=== PATIENT | male | born 1960 | race African-American/Black ===

== ENCOUNTER 2018-05-18 10:51 | Emergency (ER) | payer SELFPAY ==
[~2018-05-18] VITALS: Ht 190.5 cm; Wt 80.7 kg
[~2018-05-18 10:51] MED LIST: ASPI-612 PO; ATOR20TA58 PO; CLON0.1T12 PO; FAMO20TA5 PO; NITR0.4T SL; ONDA4TAB10 SL; POLY119P4 PO; Pantoprazole PO
[2018-05-18 12:23] LABS: INFLUENZA A PATIENT NEGATIVE (NEGATIVE); INFLUENZA B PATIENT NEGATIVE (NEGATIVE)
[2018-05-18] MEDS ORDERED: IV NORMAL SALINE 1000ML BAG 1,000 ML IV ONE (12:45)
--- NOTE | 2018-05-18 12:49 | PHYS DOC ---
Past Medical History Past Medical History: GERD, High Cholesterol, Hypertension, Unknown Additional Past Medical Histor: PT IS A POOR HISTORIAN, [place] 2006-NO STENTS PLACED Past Surgical History: Appendectomy Alcohol Use: None Drug Use: None Adult General Chief Complaint Chief Complaint: FLU SYMPTOM HPI HPI Patient is a 58 year old AA male who presents to the emergency Department via EMS today with complaints of diffuse upper abdominal pain with nausea and vomiting for the last 4 days. Patient states he has not been able to keep anything down. He reports history of having some chronic abdominal pain ever since his appendix ruptured and he had to have major abdominal surgery for that. Patient states he usually takes tramadol, however he is out of his tramadol currently. Patient also complains of a tactile fever, fatigue, and body aches. He denies any chest pain, shortness of breath, cough, congestion, sore throat, or ear pain. Currently reports his pain is 10 out of 10 on pain scale, he denies any alleviating or exacerbating factors. Review of Systems Review of Systems Constitutional: Denies fever or chills [] Eyes: Denies changes HENT: Denies nasal congestion or sore throat [] Respiratory: Denies cough or shortness of breath [] Cardiovascular: No additional information not addressed in HPI [] GI: See HPI : Denies dysuria or hematuria [] Musculoskeletal: Denies back pain Integument: Denies rash or skin lesions [] Neurologic: Denies headache Complete systems were reviewed and found to be within normal limits, except as documented in this note. Current Medications Current Medications Current Medications Medications (Trade) Dose Ordered Sig/Marylin Start Time Stop Time Status Last Admin Dose Admin Info (CONTRAST GIVEN -- Rx MONITORING) 1 each PRN DAILY PRN 05/18/18 17:15 05/18/18 18:28 DC Iohexol (Omnipaque 300 Mg/ml) 75 ml 1X ONCE 05/18/18 17:15 05/18/18 17:16 DC 05/18/18 17:21 75 ML Multi-Ingredient Mouthwash/Gargle (Gi Cocktail) 20 ml 1X ONCE 05/18/18 16:15 05/18/18 16:17 DC 05/18/18 16:23 20 ML Ondansetron HCl (Zofran) 4 mg 1X ONCE 05/18/18 16:45 05/18/18 16:46 DC 05/18/18 16:57 4 MG Sodium Chloride 1,000 ml @ 1,000 mls/hr 1X ONCE 05/18/18 12:45 05/18/18 13:44 DC 05/18/18 12:45 1,000 MLS/HR Allergies Allergies Allergies Coded Allergies Type Severity Reaction Last Updated Verified Penicillins Allergy Intermediate 01/28/18 Yes acetaminophen Allergy Intermediate 01/28/18 Yes Physical Exam Physical Exam Constitutional: Well developed, well nourished, no acute distress, non-toxic appearance. [] HENT: Normocephalic, atraumatic, bilateral external ears normal, oropharynx moist, no oral exudates, nose normal. [] Eyes: conjunctiva normal, no discharge. [] Neck: Normal range of motion, no stridor. [] Cardiovascular:Heart rate regular rhythm, no murmur [] Lungs & Thorax: Bilateral breath sounds clear to auscultation [] Abdomen: Bowel sounds normal, soft, diffuse TTP, no rebound tenderness or guarding, no masses, no pulsatile masses. [] Skin: Warm, dry, no erythema, no rash. [] Extremities: No cyanosis, ROM intact, no edema. [] Neurologic: Alert and oriented X 3, no focal deficits noted. [] Psychologic: Affect normal, judgement normal, mood normal. [] Current Patient Data Vital Signs Vital Signs Date Time Temp Pulse Resp B/P (MAP) Pulse Ox O2 Delivery O2 Flow Rate FiO2 05/18/18 18:00 90 18 174/100 (124) 99 Room Air 05/18/18 11:00 98.0 98.0 Lab Values Laboratory Tests Test 05/18/18 11:55 05/18/18 14:17 Influenza Type A Antigen Negative (NEGATIVE) Influenza Type B Antigen Negative (NEGATIVE) White Blood Count 4.2 x10^3/uL (4.0-11.0) Red Blood Count 5.04 x10^6/uL (4.30-5.70) Hemoglobin 13.9 g/dL (13.0-17.5) Hematocrit 42.2 % (39.0-53.0) Mean Corpuscular Volume 84 fL (79-100) Mean Corpuscular Hemoglobin 28 pg (25-35) Mean Corpuscular Hemoglobin Concent 33 g/dL (31-37) Red Cell Distribution Width 14.6 % (11.5-14.5) H Platelet Count 152 x10^3/uL (140-400) Neutrophils (%) (Auto) 52 % (31-73) Lymphocytes (%) (Auto) 38 % (24-48) Monocytes (%) (Auto) 8 % (0-9) Eosinophils (%) (Auto) 2 % (0-3) Basophils (%) (Auto) 1 % (0-3) Neutrophils # (Auto) 2.2 x10^3uL (1.8-7.7) Lymphocytes # (Auto) 1.6 x10^3/uL (1.0-4.8) Monocytes # (Auto) 0.3 x10^3/uL (0.0-1.1) Eosinophils # (Auto) 0.1 x10^3/uL (0.0-0.7) Basophils # (Auto) 0.0 x10^3/uL (0.0-0.2) Sodium Level 142 mmol/L (136-145) Potassium Level 3.5 mmol/L (3.5-5.1) Chloride Level 105 mmol/L (98-107) Carbon Dioxide Level 32 mmol/L (21-32) Anion Gap 5 (6-14) L Blood Urea Nitrogen 5 mg/dL (8-26) L Creatinine 1.1 mg/dL (0.7-1.3) Estimated GFR (Cockcroft-Gault) 82.6 BUN/Creatinine Ratio 5 (6-20) L Glucose Level 96 mg/dL (70-99) Calcium Level 8.1 mg/dL (8.5-10.1) L Total Bilirubin 0.7 mg/dL (0.2-1.0) Aspartate Amino Transferase (AST) 13 U/L (15-37) L Alanine Aminotransferase (ALT) 13 U/L (16-63) L Alkaline Phosphatase 84 U/L (46-116) Total Protein 6.6 g/dL (6.4-8.2) Albumin 3.4 g/dL (3.4-5.0) Albumin/Globulin Ratio 1.1 (1.0-1.7) Lipase 67 U/L (73-393) L Laboratory Tests 05/18/18 14:17 Laboratory Tests 05/18/18 14:17 EKG EKG 1447- SR rate 83, no STEMI read by Dr. Oh[] Radiology/Procedures Radiology/Procedures PROCEDURE: CT ABD PELV W/ IV CONTRST ONLY CT abdomen pelvis with contrast dated 05/18/2018. No comparison available. CLINICAL INDICATION: Diffuse abdominal pain. Nausea vomiting. TECHNIQUE: Contiguous axial imaging the abdomen and pelvis performed after the administration of 75 cc Omnipaque 300. One or more of the following individualized dose reduction techniques were utilized for this examination: 1. Automated exposure control 2. Adjustment of the mA and/or kV according to patient size 3. Use of iterative reconstruction technique. FINDINGS: Limited images of lung bases are clear. Heart size within normal limits. No pleural or pericardial effusion. Circumscribed low-density lesion in the left lobe liver, likely cyst. There are a couple of additional low-density foci in the right lobe that are too small to adequately characterize. Biliary tree normal in caliber. Gallbladder unremarkable. Spleen is normal in size. Pancreas, adrenal glands and kidneys are unremarkable. No hydronephrosis. Unopacified GI tract normal in caliber and contour. No focal bowel wall thickening. No inflammatory changes in the mesentery. The appendix is not clearly identified. No free fluid or lymphadenopathy. Images of pelvis show moderately distended urinary bladder. Prostate gland mildly enlarged. No free pelvic fluid or pelvic lymphadenopathy. Bone windows show no acute findings. Multilevel spondylosis. IMPRESSION: 1. No acute abnormality of abdomen or pelvis. 2. Distended urinary bladder[] Course & Med Decision Making Course & Med Decision Making Pertinent Labs and Imaging studies reviewed. (See chart for details) Dx: chronic abdominal pain, nausea & vomiting Labs were unremarkable, CT abd/pel was negative for any acute findings. Pt was given 1L of NS, a GI cocktail, and 2 doses of zofran IV in the Department. Pt only vomited x1 after drinking the GI cocktail. Prescriptions written for zofran and tramadol. Follow up with PCP. Patient verbalized an understanding of home care, medications, follow-up, and return to ED instructions and was in agreement with the plan of care. [] Dragon Disclaimer Dragon Disclaimer This electronic medical record was generated, in whole or in part, using a voice recognition dictation system. Departure Departure Impression: Primary Impression: Abdominal pain, chronic, generalized Additional Impression: Nausea & vomiting Disposition: 01 HOME, SELF-CARE Condition: STABLE Referrals: NO PCP (PCP) Patient Instructions: Abdominal Pain (Nonspecific), Nausea and Vomiting, Easy- to-Read Additional Instructions: Fill prescriptions and use them as directed. Recommend clear fluids for the next 24 hours. Then you may advance to bland foods such as bananas, rice, applesauce, and dry toast. Follow up with your primary care doctor this week, return to the ER if symptoms worsen. Scripts Ondansetron (ONDANSETRON ODT) 4 Mg Tab.rapdis 1 TAB PO PRN Q6-8HRS PRN for NAUSEA/VOMITING for 4 Days, #16 TAB 0 Refills Prov: GRZEGORZ CAMARA APRN 05/18/18 Tramadol Hcl (TRAMADOL HCL) 50 Mg Tablet 50 MG PO Q6HRS PRN for PAIN for 3 Days, #12 TAB 0 Refills Prov: GRZEGORZ CAMARA DENTAL HYGIENIST 05/18/18 Problem Qualifiers Additional Impression: Nausea & vomiting Vomiting type: unspecified Vomiting Intractability: non-intractable Qualified Codes: R11.2 - Nausea with vomiting, unspecified GRZEGORZ CAMARA DENTAL HYGIENIST May 18, 2018 12:49
[2018-05-18] MEDS ORDERED: ONDANSETRON PF 4 MG/2 ML VIAL. IV ONE ×2 (13:00→16:45)
[2018-05-18 14:25] LABS: BASO % 1 % (0-3); EOS # 0.1 x10^3/uL (0.0-0.7); EOS % 2 % (0-3); HEMATOCRIT 42.2 % (39.0-53.0); HEMOGLOBIN 13.9 g/dL (13.0-17.5); LYMPH # 1.6 x10^3/uL (1.0-4.8); LYMPH % 38 % (24-48); MEAN CORPUSCULAR HEMOGLOBIN 28 pg (25-35); MEAN CORPUSCULAR HGB CONC 33 g/dL (31-37); MEAN CORPUSCULAR VOLUME 84 fL (79-100); MONO # 0.3 x10^3/uL (0.0-1.1); MONO % 8 % (0-9); NEUT # 2.2 x10^3uL (1.8-7.7); NEUT % 52 % (31-73); PLATELET COUNT 152 x10^3/uL (140-400); RED BLOOD COUNT 5.04 x10^6/uL (4.30-5.70); RED CELL DISTRIBUTION WIDTH 14.6 % (11.5-14.5); WHITE BLOOD COUNT 4.2 x10^3/uL (4.0-11.0)
[2018-05-18 14:33] LABS: CALCIUM 8.1 mg/dL (8.5-10.1); CREATININE 1.1 mg/dL (0.7-1.3); GFR 82.6; POTASSIUM 3.5 mmol/L (3.5-5.1)
[2018-05-18 14:39] LABS: ALBUMIN 3.4 g/dL (3.4-5.0); ALBUMIN/GLOBULIN RATIO 1.1 (1.0-1.7); TOTAL BILIRUBIN 0.7 mg/dL (0.2-1.0); TOTAL PROTEIN 6.6 g/dL (6.4-8.2)
[2018-05-18] MEDS ORDERED: LIDO:MAALOX 1:1 20 ML SINGLE DOSE. SWSW ONE (16:15)
[2018-05-18] MEDS ORDERED: IOHEXOL 300 MG/ML 100ML VIAL. IV ONE (17:15)
[2018-05-18] MEDS ORDERED: CONTRAST GIVEN. MC PRN (17:15)
--- NOTE | 2018-05-18 17:47 | RAD ---
CT abdomen pelvis with contrast dated 05/18/2018. No comparison available. CLINICAL INDICATION: Diffuse abdominal pain. Nausea vomiting. TECHNIQUE: Contiguous axial imaging the abdomen and pelvis performed after the administration of 75 cc Omnipaque 300. One or more of the following individualized dose reduction techniques were utilized for this examination: 1. Automated exposure control 2. Adjustment of the mA and/or kV according to patient size 3. Use of iterative reconstruction technique. FINDINGS: Limited images of lung bases are clear. Heart size within normal limits. No pleural or pericardial effusion. Circumscribed low-density lesion in the left lobe liver, likely cyst. There are a couple of additional low-density foci in the right lobe that are too small to adequately characterize. Biliary tree normal in caliber. Gallbladder unremarkable. Spleen is normal in size. Pancreas, adrenal glands and kidneys are unremarkable. No hydronephrosis. Unopacified GI tract normal in caliber and contour. No focal bowel wall thickening. No inflammatory changes in the mesentery. The appendix is not clearly identified. No free fluid or lymphadenopathy. Images of pelvis show moderately distended urinary bladder. Prostate gland mildly enlarged. No free pelvic fluid or pelvic lymphadenopathy. Bone windows show no acute findings. Multilevel spondylosis. IMPRESSION: 1. No acute abnormality of abdomen or pelvis. 2. Distended urinary bladder Electronically signed by: Khalif Khan MD (05/18/2018 5:44 PM) [facility] [id number]
[2018-05-18] MEDS ORDERED: ONDA4TAB12 PO (17:55)
[2018-05-18] MEDS ORDERED: TRAM50TA PO (17:55)
[2018-05-18 18:00] VITALS: BP 174/100
--- NOTE | 2018-05-19 07:55 | EKG ---
[facility] [address] [place] [id number] Test Date: 2018-05-18 Test Time: 14:47:02 Pat Name: MARIA LARKIN Department: Room: Gender: M Medical Information Specialist: CASH : 1960 Requested By: GRZEGORZ CAMARA Order Number: [id number] Reading MD: Enrique Franco MD Measurements Intervals [place] Rate: 83 P: 119 VA: 200 QRS: 64 QRSD: 86 T: 43 QT: 336 QTc: 400 Interpretive Statements SINUS RHYTHM Electronically Signed On 05-19-2018 14:42:19 CDT by Enrique Franco MD
== END 2018-05-18 18:04 | disposition home or self-care (01) ==
LOC: ER 10:51 → MERGE 10:51 → ER 18:04
DX: G89.29 Other chronic pain (principal); R10.84 Generalized abdominal pain; R11.2 Nausea with vomiting, unspecified; K21.9 Gastro-esophageal reflux disease without esophagitis; E78.00 Pure hypercholesterolemia, unspecified; I10 Essential (primary) hypertension; Z90.89 Acquired absence of other organs; Z88.0 Allergy status to penicillin; Z88.6 Allergy status to analgesic agent
CPT/HCPCS: 36415; 74177; 80053; 83690; 85025; 87804; 93005; 96361; 96374; 96376; 99284; J2405; J7030; Q9967; 99283

== ENCOUNTER 2018-05-25 00:22 | Emergency (ER) | payer SELFPAY ==
[2015-12-10 20:25] VITALS: BP 143/87
[~2018-05-25 00:22] MED LIST changes: +ONDA4TAB12 PO; +TRAM50TA PO
== END 2018-05-25 00:29 | disposition left against medical advice (07) ==
LOC: ER 00:22
DX: R07.9 Chest pain, unspecified (principal); Z53.21 Procedure and treatment not carried out due to patient leaving prior to being seen by health care provider

== ENCOUNTER 2018-07-27 20:04 | Inpatient (IN) | payer SELFPAY ==
[~2018-07-27] VITALS: Ht 190.5 cm; Wt 74.8 kg
[2018-07-27] MEDS ORDERED: IV NORMAL SALINE 1000ML BAG 1,000 ML IV SCH (20:06)
[2018-07-27] MEDS ORDERED: ONDANSETRON PF 4 MG/2 ML VIAL. IV ONE (20:15)
[2018-07-27 20:24] LABS: BASO # 0.1 x10^3/uL (0.0-0.2); BASO % 3 % (0-3); EOS # 0.1 x10^3/uL (0.0-0.7); EOS % 2 % (0-3); HEMATOCRIT 43.6 % (39.0-53.0); HEMOGLOBIN 14.8 g/dL (13.0-17.5); LYMPH # 1.6 x10^3/uL (1.0-4.8); LYMPH % 41 % (24-48); MEAN CORPUSCULAR HEMOGLOBIN 28 pg (25-35); MEAN CORPUSCULAR HGB CONC 34 g/dL (31-37); MEAN CORPUSCULAR VOLUME 84 fL (79-100); MONO # 0.3 x10^3/uL (0.0-1.1); MONO % 8 % (0-9); NEUT # 1.8 x10^3uL (1.8-7.7); NEUT % 46 % (31-73); PLATELET COUNT 153 x10^3/uL (140-400); RED BLOOD COUNT 5.22 x10^6/uL (4.30-5.70); WHITE BLOOD COUNT 3.8 x10^3/uL (4.0-11.0)
[2018-07-27] MEDS: fentaNYL PF VIAL 100 MCG/2 ML VIAL IV PRN ×3 (20:28→23:43)
[2018-07-27 20:33] LABS: CALCIUM 9.2 mg/dL (8.5-10.1); CREATININE 1.2 mg/dL (0.7-1.3); GFR 74.7; POTASSIUM 3.7 mmol/L (3.5-5.1)
--- NOTE | 2018-07-27 20:34 | RAD ---
EXAM: Chest, single view. HISTORY: Chest pain. COMPARISON: None. FINDINGS: A frontal view of the chest is obtained. There is oblique patient positioning with associated slight dextro positioning of the heart. There is no infiltrate, pleural effusion or pneumothorax. The heart is normal in size. IMPRESSION: No acute pulmonary finding. Electronically signed by: Betsey Benavidez MD (07/27/2018 8:31 PM) [facility]
[2018-07-27 20:39] LABS: ALBUMIN/GLOBULIN RATIO 1.3 (1.0-1.7); TOTAL BILIRUBIN 0.8 mg/dL (0.2-1.0)
--- NOTE | 2018-07-27 20:43 | PHYS DOC ---
Past Medical History Past Medical History: Cancer, [place] Past Surgical History: No Surgical History, Other Additional Past Surgical Histo: ABD SURGERY Alcohol Use: None Drug Use: None Adult General Chief Complaint Chief Complaint: ABDOMINAL PAIN HPI HPI Patient is a 58-year-old male who presents with complaint of severe mid abdominal pain for 4 days. Patient states the pain is progressively gotten worse to the point where today pain is a 10 out of 10. He denies any actual radiation of the pain. He states that he has been nauseated but has not vomited. He denies any diarrhea. He also denies any fever. Patient states that pain is worsened with movement and any palpation.[] Review of Systems Review of Systems Constitutional: Denies fever or chills [] Respiratory: Denies cough or shortness of breath [] Cardiovascular: No additional information not addressed in HPI [] GI: Complains of mid abdominal pain with nausea. Denies vomiting or diarrhea [] : Denies dysuria or hematuria [] Musculoskeletal: Denies back pain or joint pain [] I All other systems were reviewed and found to be within normal limits, except as documented in this note. Current Medications Current Medications Current Medications Medications (Trade) Dose Ordered Sig/Marylin Start Time Stop Time Status Last Admin Dose Admin Fentanyl Citrate (Fentanyl 2ml Vial) 50 mcg PRN Q15MIN PRN 07/27/18 20:15 07/28/18 20:14 07/27/18 21:19 50 MCG Iohexol (Omnipaque 300 Mg/ml) 75 ml 1X ONCE 07/27/18 21:00 07/27/18 21:01 DC 07/27/18 21:05 75 ML Meropenem 1 gm/ Sodium Chloride 100 ml @ 200 mls/hr Q8HRS 07/27/18 22:00 UNV Ondansetron HCl (Zofran) 4 mg 1X ONCE 07/27/18 20:15 07/27/18 20:19 DC 07/27/18 20:29 4 MG Sodium Chloride 1,000 ml @ 1,000 mls/hr Q1H 07/27/18 20:06 07/27/18 21:05 DC 07/27/18 20:29 1,000 MLS/HR Allergies Allergies Allergies Coded Allergies Type Severity Reaction Last Updated Verified Penicillins Allergy Intermediate 12/10/15 Yes acetaminophen Allergy Intermediate 12/10/15 Yes Physical Exam Physical Exam Constitutional: Well developed, well nourished, in moderate distress, non-toxic appearance. [] HENT: Normocephalic, atraumatic, bilateral external ears normal, oropharynx moist, no oral exudates, nose normal. [] Eyes: PERRLA, EOMI, conjunctiva normal, no discharge. [] Neck: Normal range of motion, no tenderness, supple, no stridor. [] Cardiovascular: Regular rate and rhythm[] Lungs & Thorax: Bilateral breath sounds clear to auscultation [] Abdomen: Bowel sounds diminished, soft, with marked tenderness to palpation throughout. Positive rebound tenderness. [] Skin: Warm, dry, no erythema, no rash. [] Back: No tenderness, no CVA tenderness. [] Extremities: No tenderness, no cyanosis, no clubbing, ROM intact. [] Neurologic: Alert and oriented X 3, no focal deficits noted. [] Current Patient Data Vital Signs Vital Signs Date Time Temp Pulse Resp B/P (MAP) Pulse Ox O2 Delivery O2 Flow Rate FiO2 07/27/18 21:28 93 17 145/88 (107) 98 Room Air 07/27/18 20:05 98.1 98.1 Lab Values Laboratory Tests Test 07/27/18 20:11 White Blood Count 3.8 x10^3/uL (4.0-11.0) L Red Blood Count 5.22 x10^6/uL (4.30-5.70) Hemoglobin 14.8 g/dL (13.0-17.5) Hematocrit 43.6 % (39.0-53.0) Mean Corpuscular Volume 84 fL (79-100) Mean Corpuscular Hemoglobin 28 pg (25-35) Mean Corpuscular Hemoglobin Concent 34 g/dL (31-37) Red Cell Distribution Width 14.0 % (11.5-14.5) Platelet Count 153 x10^3/uL (140-400) Neutrophils (%) (Auto) 46 % (31-73) Lymphocytes (%) (Auto) 41 % (24-48) Monocytes (%) (Auto) 8 % (0-9) Eosinophils (%) (Auto) 2 % (0-3) Basophils (%) (Auto) 3 % (0-3) Neutrophils # (Auto) 1.8 x10^3uL (1.8-7.7) Lymphocytes # (Auto) 1.6 x10^3/uL (1.0-4.8) Monocytes # (Auto) 0.3 x10^3/uL (0.0-1.1) Eosinophils # (Auto) 0.1 x10^3/uL (0.0-0.7) Basophils # (Auto) 0.1 x10^3/uL (0.0-0.2) PTT 28 SEC (24-38) Sodium Level 141 mmol/L (136-145) Potassium Level 3.7 mmol/L (3.5-5.1) Chloride Level 101 mmol/L (98-107) Carbon Dioxide Level 35 mmol/L (21-32) H Anion Gap 5 (6-14) L Blood Urea Nitrogen 11 mg/dL (8-26) Creatinine 1.2 mg/dL (0.7-1.3) Estimated GFR (Cockcroft-Gault) 74.7 BUN/Creatinine Ratio 9 (6-20) Glucose Level 108 mg/dL (70-99) H Calcium Level 9.2 mg/dL (8.5-10.1) Total Bilirubin 0.8 mg/dL (0.2-1.0) Aspartate Amino Transferase (AST) 14 U/L (15-37) L Alanine Aminotransferase (ALT) 18 U/L (16-63) Alkaline Phosphatase 85 U/L (46-116) Troponin I Quantitative < 0.017 ng/mL (0.000-0.055) Total Protein 7.0 g/dL (6.4-8.2) Albumin 4.0 g/dL (3.4-5.0) Albumin/Globulin Ratio 1.3 (1.0-1.7) Lipase 66 U/L (73-393) L Ethyl Alcohol Level < 10 mg/dL (0-10) Laboratory Tests 07/27/18 20:11 Laboratory Tests 07/27/18 20:11 EKG EKG [] Radiology/Procedures Radiology/Procedures [] Impressions: PROCEDURE: PORTABLE CHEST 1V EXAM: Chest, single view. HISTORY: Chest pain. COMPARISON: None. FINDINGS: A frontal view of the chest is obtained. There is oblique patient positioning with associated slight dextro positioning of the heart. There is no infiltrate, pleural effusion or pneumothorax. The heart is normal in size. IMPRESSION: No acute pulmonary finding. Electronically signed by: Betsey Benavidez MD (07/27/2018 8:31 PM) [facility] PROCEDURE: CT ABD PELV W/ IV CONTRST ONLY EXAM: Abdomen and pelvis CT with intravenous contrast. HISTORY: Pain. TECHNIQUE: Computed tomographic images of the abdomen and pelvis were obtained following the administration of 75 cc Omnipaque 300 intravenous contrast. Multiplanar reformatting was performed. *One or more of the following individualized dose reduction techniques were utilized for this examination: 1. Automated exposure control. 2. Adjustment of the mA and/or kV according to patient size. 3. Use of iterative reconstruction technique. COMPARISON: 08/05/2010 and 04/24/2010. FINDINGS: Evaluation of the lower thorax demonstrates posterior dependent atelectasis. There is no infiltrate or pleural effusion. There is a small focus of gas anterior anterior inferior mediastinum. There is also a tiny amount of pneumoperitoneum and gas within the midline ventral abdominal wall primarily at the level of the umbilicus. There are few stable small hypodense lesions within the liver, the largest of which measures 1.2 cm with attenuation consistent with a cyst. No suspicious hepatic lesion is seen. The collar, pancreas, spleen, adrenal glands and kidneys are unremarkable. There is no appendicitis. There is a moderate to large amount of gas and stool throughout the colon. No abnormally thickened loop of bowel is seen. No drainable fluid collection is seen. There is no lymphadenopathy. There is no suspicious osseous lesion. IMPRESSION: 1. Tiny amount of pneumoperitoneum within the ventral abdominal peritoneal cavity and tiny amount of gas within the ventral abdominal wall at the level of the umbilicus. This is of uncertain etiology. Correlate for recent surgery/instrumentation. There is no convincing site of bowel perforation. 2. Moderate to large amount of gas and stool throughout the colon. Correlate for constipation. 3. Suspected small hepatic cysts. Electronically signed by: Betsey Benavidez MD (07/27/2018 9:25 PM) [facility] Course & Med Decision Making Course & Med Decision Making Pertinent Labs and Imaging studies reviewed. (See chart for details) [] Dragon Disclaimer Dragon Disclaimer This electronic medical record was generated, in whole or in part, using a voice recognition dictation system. Departure Departure Impression: Primary Impression: Perforated abdominal viscus Additional Impression: Abdominal pain Disposition: 09 ADMITTED INPATIENT Admitting Physician: AMISHA Condition: IMPROVED Referrals: NO PCP (PCP) Problem Qualifiers Additional Impression: Abdominal pain Abdominal location: generalized Qualified Codes: R10.84 - Generalized abdominal pain GERMAN LOWE Jr. DO Jul 27, 2018 20:43
[2018-07-27] MEDS ORDERED: IOHEXOL 300 MG/ML 100ML VIAL. IV ONE (21:00)
--- NOTE | 2018-07-27 21:28 | RAD ---
EXAM: Abdomen and pelvis CT with intravenous contrast. HISTORY: Pain. TECHNIQUE: Computed tomographic images of the abdomen and pelvis were obtained following the administration of 75 cc Omnipaque 300 intravenous contrast. Multiplanar reformatting was performed. *One or more of the following individualized dose reduction techniques were utilized for this examination: 1. Automated exposure control. 2. Adjustment of the mA and/or kV according to patient size. 3. Use of iterative reconstruction technique. COMPARISON: 08/05/2010 and 04/24/2010. FINDINGS: Evaluation of the lower thorax demonstrates posterior dependent atelectasis. There is no infiltrate or pleural effusion. There is a small focus of gas anterior anterior inferior mediastinum. There is also a tiny amount of pneumoperitoneum and gas within the midline ventral abdominal wall primarily at the level of the umbilicus. There are few stable small hypodense lesions within the liver, the largest of which measures 1.2 cm with attenuation consistent with a cyst. No suspicious hepatic lesion is seen. The collar, pancreas, spleen, adrenal glands and kidneys are unremarkable. There is no appendicitis. There is a moderate to large amount of gas and stool throughout the colon. No abnormally thickened loop of bowel is seen. No drainable fluid collection is seen. There is no lymphadenopathy. There is no suspicious osseous lesion. IMPRESSION: 1. Tiny amount of pneumoperitoneum within the ventral abdominal peritoneal cavity and tiny amount of gas within the ventral abdominal wall at the level of the umbilicus. This is of uncertain etiology. Correlate for recent surgery/instrumentation. There is no convincing site of bowel perforation. 2. Moderate to large amount of gas and stool throughout the colon. Correlate for constipation. 3. Suspected small hepatic cysts. Electronically signed by: Betsey Benavidez MD (07/27/2018 9:25 PM) [facility]
[2018-07-27] MEDS ORDERED: ONDANSETRON PF 4 MG/2 ML VIAL. IV PRN (22:15)
[2018-07-27] MEDS: MEROPENEM 1 GM in IV NORMAL SALINE 100ML 100 ML IV SCH (22:31)
[2018-07-27] MEDS: IV NORMAL SALINE 1000ML BAG 1,000 ML IV SCH (22:34)
[2018-07-27] MEDS ORDERED: methylPREDNISolone SOD SUCC PF 125 MG/2 ML VIAL. IV ONE (23:00)
[2018-07-27] MEDS ORDERED: diphenhydrAMINE 50 MG/ML VIAL IVP ONE (23:00)
[2018-07-27 23:15] VITALS: BP 143/92
--- NOTE | 2018-07-27 23:15 | NUR ---
ADMISSION NOTE Pt admitted to room 536 via cart from ER. Pt able to move self to bed. Pt is A/Ox4, but get easily irritated and angry when being asked admission questions and general orienting to the room. Pt condescending with remarks to staff when attempting to assist pt with cares. Upon attempting to complete admission assessment, pt would not allow this RN to complete skin check because he would not change out of the gown and pants he was wearing, or remove socks to allow a full skin check. Pt denies taking any home medications and is unwilling to answer some admission questions. Pt requesting ice or water, explained to pt NPO status and pt gets upset and states that ER said he could have some ice when he was admitted. Explained again, doctors orders, and offered pt oral swabs, but pt refused oral swabs. Pt assisted up to bathroom, pt steady on feet, just needed help with IV pole. Pt able to give urine sample in urinal, then pt back to bed, given call light and explained use, pt VU. Pain meds administered. Will monitor.
[2018-07-27 23:53] LABS: BILIRUBIN,URINE SMALL (NEG); CLARITY,URINE CLEAR; COLOR,URINE AMBER; NITRITE,URINE NEGATIVE (NEG); PROTEIN,URINE NEGATIVE (NEG-TRACE)
[2018-07-28] VITALS (10 sets, daily range): BP systolic 120–148; BP diastolic 67–101
[2018-07-28 00:01] LABS: BACTERIA,URINE 0 /HPF (0-FEW); RBC,URINE 0 /HPF (0-2); SQUAMOUS EPITHELIAL CELL,UR FEW /LPF
[2018-07-28 00:02] LABS: BARBITURATES NEG (NEG); BENZODIAZEPINES NEG (NEG); CANNABINOIDS NEG (NEG); COCAINE POS (NEG); METHADONE NEG (NEG); OPIATES NEG (NEG); PHENCYCLIDINE NEG (NEG)
[2018-07-28 00:03] LABS: AMPHETAMINE/METHAMPHETAMINE POS (NEG)
[2018-07-28] MEDS: fentaNYL PF VIAL 100 MCG/2 ML VIAL IV PRN ×3 (03:19→08:30)
[2018-07-28 04:51] LABS: BASO % 0 % (0-3); EOS % 0 % (0-3); HEMATOCRIT 42.7 % (39.0-53.0); HEMOGLOBIN 14.4 g/dL (13.0-17.5); LYMPH # 0.4 x10^3/uL (1.0-4.8); LYMPH % 4 % (24-48); MEAN CORPUSCULAR HEMOGLOBIN 29 pg (25-35); MEAN CORPUSCULAR HGB CONC 34 g/dL (31-37); MEAN CORPUSCULAR VOLUME 84 fL (79-100); MONO # 0.1 x10^3/uL (0.0-1.1); MONO % 2 % (0-9); NEUT # 7.8 x10^3uL (1.8-7.7); NEUT % 94 % (31-73); PLATELET COUNT 140 x10^3/uL (140-400); RED BLOOD COUNT 5.08 x10^6/uL (4.30-5.70); RED CELL DISTRIBUTION WIDTH 13.8 % (11.5-14.5); WHITE BLOOD COUNT 8.4 x10^3/uL (4.0-11.0)
--- NOTE | 2018-07-28 05:14 | PDOC2 ---
CONSULT Date of Consult Date of Consult DATE: 07/28/18 TIME: 05:12 History of Present Illness Reason for Visit: 58 year old male with 4 day history of abdominal pain, worsened last 24 hours prompting reporting to the ER. The pain is sharp, severe, located in the mid abdomen, nonradiating. Denies nausea, vomiting, or changes in bowel function. Past Medical History Past Medical History denies Past Surgical History Past Surgical History surgery for perforated appendicitis, abdominal procedure for "poisoning" Current Problem List Problem List Problems Medical Problems: (1) Abdominal pain Status: Acute (2) Perforated abdominal viscus Status: Acute Current Medications Current Medications Current Medications Fentanyl Citrate (Fentanyl 2ml Vial) 50 mcg PRN Q15MIN PRN IV PAIN GREATER THAN 3/10 Last administered on 07/27/18at 21:19; Start 07/27/18 at 20:15; Stop 07/28/18 at 20:14 Sodium Chloride 1,000 ml @ 1,000 mls/hr Q1H IV Last administered on 07/27/18at 20:29; Start 07/27/18 at 20:06; Stop 07/27/18 at 21:05; Status DC Ondansetron HCl (Zofran) 4 mg 1X ONCE IV Last administered on 07/27/18at 20:29; Start 07/27/18 at 20:15; Stop 07/27/18 at 20:19; Status DC Iohexol (Omnipaque 300 Mg/ml) 75 ml 1X ONCE IV Last administered on 07/27/18at 21:05; Start 07/27/18 at 21:00; Stop 07/27/18 at 21:01; Status DC Meropenem 1 gm/ Sodium Chloride 100 ml @ 200 mls/hr Q8HRS IV Last administered on 07/27/18at 22:31; Start 07/27/18 at 22:30 Ondansetron HCl (Zofran) 4 mg PRN Q8HRS PRN IV NAUSEA/VOMITING 1ST CHOICE; Start 07/27/18 at 22:15; Stop 07/28/18 at 22:14 Fentanyl Citrate (Fentanyl 2ml Vial) 50 mcg PRN Q1HR PRN IV SEVERE PAIN Last administered on 07/28/18at 03:19; Start 07/27/18 at 22:15; Stop 07/28/18 at 22:14 Sodium Chloride 1,000 ml @ 125 mls/hr Q8H IV Last administered on 07/27/18at 22:34; Start 07/27/18 at 22:30; Stop 07/28/18 at 22:29 Methylprednisolone Sodium Succinate (SOLU-Medrol 125MG VIAL) 125 mg 1X ONCE IV Last administered on 07/27/18at 22:28; Start 07/27/18 at 23:00; Stop 07/27/18 at 23:01; Status DC Diphenhydramine HCl (Benadryl) 25 mg 1X ONCE IVP Last administered on 07/27/18at 22:29; Start 07/27/18 at 23:00; Stop 07/27/18 at 23:01; Status DC Active Scripts Active Reported No Known Medications Prior To Admisstion (Info) Each 1 Each MC 1X Allergies Allergies: Coded Allergies: Penicillins (Verified Allergy, Intermediate, RASH, SHORTNESS OF BREATH, 07/27/18) acetaminophen (Verified Allergy, Intermediate, 12/10/15) ROS General: No: Chills, Night Sweats, Fatigue, Malaise, Appetite, Other PSYCHOLOGICAL ROS: No: Anxiety, Behavioral Disorder, Concentration difficultie, Decreased libido, Depression, Disorientation, Hallucinations, Hostility, Irritablity, Memory difficulties, Mood Swings, Obsessive thoughts, Physical abuse, Sexual abuse, Sleep disturbances, Suicidal ideation, Other Eyes: No Blurry vision, No Decreased vision, No Double vision, No Dry eyes, No Excessive tearing, No Eye Pain, No Itchy Eyes, No Loss of vision, No Photophobia, No Scotomata, No Uses contacts, No Uses glasses, No Other ENDOCRINE: No: Breast Changes, Galactorrhea, Hair Pattern Changes, Hot Flashes, Malaise/lethargy, Mood Swings, Palpitations, Polydipsia/polyuria, Skin Changes, Temperature Intolerance, Unexpected Weight Changes, Other Respiratory: No: Cough, Hemoptysis, Orthopnea, Pleuritic Pain, Shortness of breath, SOB with excertion, Sputum Changes, Stridor, Tachypnea, Wheezing, Other Cardiovascular: No Chest Pain, No Palpitations, No Orthopnea, No Paroxysmal Noc. Dyspnea, No Edema, No Lt Headedness, No Other Gastrointestinal: Yes Abdominal Pain Genitourinary: No Dysuria, No Frequency, No Incontinence, No Hematuria, No Retention, No Discharge, No Urgency, No Pain, No Flank Pain, No Other, No , No , No , No , No , No , No Musculoskeletal: No Gait Disturbance, No Joint Pain, No Joint Stiffness, No Joint Swelling, No Muscle Pain, No Muscular Weakness, No Pain In:, No Swelling In:, No Other Neurological: No Behavorial Changes, No Bowel/Bladder ControlChng, No Confusion, No Dizziness, No Gait Disturbance, No Headaches, No Impaired Coord/balance, No Memory Loss, No Numbness/Tingling, No Seizures, No Speech Problems, No Tremors, No Visual Changes, No Weakness, No Other Skin: No Dry Skin, No Eczema, No Hair Changes, No Lumps, No Mole Changes, No Mottling, No Nail Changes, No Pruritus, No Rash, No Skin Lesion Changes, No Other, No Acne Physical Exam General: Alert, Oriented X3, mild distress HEENT: Atraumatic Lungs: Clear to auscultation Abdomen: Soft (tender with palpation in mid abdomen (at vertical scar), positive for peritoneal signs) Extremities: No clubbing, No cyanosis Skin: No rashes Neuro: Normal speech Psych/Mental Status: Mental status NL MUSCULOSKELETAL: No deformity Vitals VITALS Vital Signs Date Time Temp Pulse Resp B/P (MAP) Pulse Ox O2 Delivery O2 Flow Rate FiO2 07/28/18 03:49 20 Room Air 07/28/18 03:00 98.7 96 133/92 (106) 97 98.7 Labs Labs Laboratory Tests Test 07/27/18 20:11 07/27/18 23:05 07/27/18 23:40 07/28/18 04:40 White Blood Count 3.8 x10^3/uL (4.0-11.0) 8.4 x10^3/uL (4.0-11.0) Red Blood Count 5.22 x10^6/uL (4.30-5.70) 5.08 x10^6/uL (4.30-5.70) Hemoglobin 14.8 g/dL (13.0-17.5) 14.4 g/dL (13.0-17.5) Hematocrit 43.6 % (39.0-53.0) 42.7 % (39.0-53.0) Mean Corpuscular Volume 84 fL (79-100) 84 fL (79-100) Mean Corpuscular Hemoglobin 28 pg (25-35) 29 pg (25-35) Mean Corpuscular Hemoglobin Concent 34 g/dL (31-37) 34 g/dL (31-37) Red Cell Distribution Width 14.0 % (11.5-14.5) 13.8 % (11.5-14.5) Platelet Count 153 x10^3/uL (140-400) 140 x10^3/uL (140-400) Neutrophils (%) (Auto) 46 % (31-73) 94 % (31-73) Lymphocytes (%) (Auto) 41 % (24-48) 4 % (24-48) Monocytes (%) (Auto) 8 % (0-9) 2 % (0-9) Eosinophils (%) (Auto) 2 % (0-3) 0 % (0-3) Basophils (%) (Auto) 3 % (0-3) 0 % (0-3) Neutrophils # (Auto) 1.8 x10^3uL (1.8-7.7) 7.8 x10^3uL (1.8-7.7) Lymphocytes # (Auto) 1.6 x10^3/uL (1.0-4.8) 0.4 x10^3/uL (1.0-4.8) Monocytes # (Auto) 0.3 x10^3/uL (0.0-1.1) 0.1 x10^3/uL (0.0-1.1) Eosinophils # (Auto) 0.1 x10^3/uL (0.0-0.7) 0.0 x10^3/uL (0.0-0.7) Basophils # (Auto) 0.1 x10^3/uL (0.0-0.2) 0.0 x10^3/uL (0.0-0.2) Activated Partial Thromboplast Time 28 SEC (24-38) Sodium Level 141 mmol/L (136-145) Potassium Level 3.7 mmol/L (3.5-5.1) Chloride Level 101 mmol/L (98-107) Carbon Dioxide Level 35 mmol/L (21-32) Anion Gap 5 (6-14) Blood Urea Nitrogen 11 mg/dL (8-26) Creatinine 1.2 mg/dL (0.7-1.3) Estimated GFR (Cockcroft-Gault) 74.7 BUN/Creatinine Ratio 9 (6-20) Glucose Level 108 mg/dL (70-99) Calcium Level 9.2 mg/dL (8.5-10.1) Total Bilirubin 0.8 mg/dL (0.2-1.0) Aspartate Amino Transf (AST/SGOT) 14 U/L (15-37) Alanine Aminotransferase (ALT/SGPT) 18 U/L (16-63) Alkaline Phosphatase 85 U/L (46-116) Troponin I Quantitative < 0.017 ng/mL (0.000-0.055) Total Protein 7.0 g/dL (6.4-8.2) Albumin 4.0 g/dL (3.4-5.0) Albumin/Globulin Ratio 1.3 (1.0-1.7) Lipase 66 U/L (73-393) Ethyl Alcohol Level < 10 mg/dL (0-10) Lactic Acid Level 0.8 mmol/L (0.4-2.0) Urine Collection Type Unknown Urine Color [place] Urine Clarity Clear Urine pH 7.0 Urine Specific [place] >=1.030 Urine Protein Negative mg/dL (NEG-TRACE) Urine Glucose (UA) Negative mg/dL (NEG) Urine Ketones (Stick) Trace mg/dL (NEG) Urine Blood Negative (NEG) Urine Nitrite Negative (NEG) Urine Bilirubin Small (NEG) Urine Urobilinogen Dipstick 2.0 mg/dL (0.2 mg/dL) Urine Leukocyte Esterase Small (NEG) Urine RBC 0 /HPF (0-2) Urine WBC 5-10 /HPF (0-4) Urine Squamous Epithelial Cells Few /LPF Urine Bacteria 0 /HPF (0-FEW) Urine Mucus Slight /LPF Urine Opiates Screen Neg (NEG) Urine Methadone Screen Neg (NEG) Urine Barbiturates Neg (NEG) Urine Phencyclidine Screen Neg (NEG) Urine Amphetamine/Methamphetamine Pos (NEG) Urine Benzodiazepines Screen Neg (NEG) Urine Cocaine Screen Pos (NEG) Urine Cannabinoids Screen Neg (NEG) Urine Ethyl Alcohol Neg (NEG) Laboratory Tests Test 07/27/18 20:11 07/27/18 23:05 07/27/18 23:40 07/28/18 04:40 White Blood Count 3.8 x10^3/uL (4.0-11.0) 8.4 x10^3/uL (4.0-11.0) Red Blood Count 5.22 x10^6/uL (4.30-5.70) 5.08 x10^6/uL (4.30-5.70) Hemoglobin 14.8 g/dL (13.0-17.5) 14.4 g/dL (13.0-17.5) Hematocrit 43.6 % (39.0-53.0) 42.7 % (39.0-53.0) Mean Corpuscular Volume 84 fL (79-100) 84 fL (79-100) Mean Corpuscular Hemoglobin 28 pg (25-35) 29 pg (25-35) Mean Corpuscular Hemoglobin Concent 34 g/dL (31-37) 34 g/dL (31-37) Red Cell Distribution Width 14.0 % (11.5-14.5) 13.8 % (11.5-14.5) Platelet Count 153 x10^3/uL (140-400) 140 x10^3/uL (140-400) Neutrophils (%) (Auto) 46 % (31-73) 94 % (31-73) Lymphocytes (%) (Auto) 41 % (24-48) 4 % (24-48) Monocytes (%) (Auto) 8 % (0-9) 2 % (0-9) Eosinophils (%) (Auto) 2 % (0-3) 0 % (0-3) Basophils (%) (Auto) 3 % (0-3) 0 % (0-3) Neutrophils # (Auto) 1.8 x10^3uL (1.8-7.7) 7.8 x10^3uL (1.8-7.7) Lymphocytes # (Auto) 1.6 x10^3/uL (1.0-4.8) 0.4 x10^3/uL (1.0-4.8) Monocytes # (Auto) 0.3 x10^3/uL (0.0-1.1) 0.1 x10^3/uL (0.0-1.1) Eosinophils # (Auto) 0.1 x10^3/uL (0.0-0.7) 0.0 x10^3/uL (0.0-0.7) Basophils # (Auto) 0.1 x10^3/uL (0.0-0.2) 0.0 x10^3/uL (0.0-0.2) Activated Partial Thromboplast Time 28 SEC (24-38) Sodium Level 141 mmol/L (136-145) Potassium Level 3.7 mmol/L (3.5-5.1) Chloride Level 101 mmol/L (98-107) Carbon Dioxide Level 35 mmol/L (21-32) Anion Gap 5 (6-14) Blood Urea Nitrogen 11 mg/dL (8-26) Creatinine 1.2 mg/dL (0.7-1.3) Estimated GFR (Cockcroft-Gault) 74.7 BUN/Creatinine Ratio 9 (6-20) Glucose Level 108 mg/dL (70-99) Calcium Level 9.2 mg/dL (8.5-10.1) Total Bilirubin 0.8 mg/dL (0.2-1.0) Aspartate Amino Transf (AST/SGOT) 14 U/L (15-37) Alanine Aminotransferase (ALT/SGPT) 18 U/L (16-63) Alkaline Phosphatase 85 U/L (46-116) Troponin I Quantitative < 0.017 ng/mL (0.000-0.055) Total Protein 7.0 g/dL (6.4-8.2) Albumin 4.0 g/dL (3.4-5.0) Albumin/Globulin Ratio 1.3 (1.0-1.7) Lipase 66 U/L (73-393) Ethyl Alcohol Level < 10 mg/dL (0-10) Lactic Acid Level 0.8 mmol/L (0.4-2.0) Urine Collection Type Unknown Urine Color Whitney Urine Clarity Clear Urine pH 7.0 Urine Specific [place] >=1.030 Urine Protein Negative mg/dL (NEG-TRACE) Urine Glucose (UA) Negative mg/dL (NEG) Urine Ketones (Stick) Trace mg/dL (NEG) Urine Blood Negative (NEG) Urine Nitrite Negative (NEG) Urine Bilirubin Small (NEG) Urine Urobilinogen Dipstick 2.0 mg/dL (0.2 mg/dL) Urine Leukocyte Esterase Small (NEG) Urine RBC 0 /HPF (0-2) Urine WBC 5-10 /HPF (0-4) Urine Squamous Epithelial Cells Few /LPF Urine Bacteria 0 /HPF (0-FEW) Urine Mucus Slight /LPF Urine Opiates Screen Neg (NEG) Urine Methadone Screen Neg (NEG) Urine Barbiturates Neg (NEG) Urine Phencyclidine Screen Neg (NEG) Urine Amphetamine/Methamphetamine Pos (NEG) Urine Benzodiazepines Screen Neg (NEG) Urine Cocaine Screen Pos (NEG) Urine Cannabinoids Screen Neg (NEG) Urine Ethyl Alcohol Neg (NEG) Images Images CT abdomen: IMPRESSION: 1. Tiny amount of pneumoperitoneum within the ventral abdominal peritoneal cavity and tiny amount of gas within the ventral abdominal wall at the level of the umbilicus. This is of uncertain etiology. Correlate for recent surgery/instrumentation. There is no convincing site of bowel perforation. 2. Moderate to large amount of gas and stool throughout the colon. Correlate for constipation. 3. Suspected small hepatic cysts. Assessment/Plan Assessment/Plan Abdominal pain, CT reviewed; physical exam is worrisome for peritoneal signs, given suspected pneumoperitoneum would recommend exploration. I reviewed the details and risks of surgery with the patient. He understands and would like to proceed, "anything to help this pain". RADHA GRIER MD Jul 28, 2018 05:14
[2018-07-28 05:17] LABS: CALCIUM 8.4 mg/dL (8.5-10.1); GFR 92.2; POTASSIUM 4.1 mmol/L (3.5-5.1)
[2018-07-28] MEDS ORDERED: SEVOFLURANE > 120 MINUTES. IH ONE (05:34)
[2018-07-28] MEDS ORDERED: GLYCOPYRROLATE 1 MG/5 ML VIAL. ONE (05:35)
[2018-07-28] MEDS ORDERED: fentaNYL PF VIAL 100 MCG/2 ML VIAL ONE ×3 (05:35→08:00)
[2018-07-28] MEDS ORDERED: MIDAZOLAM HCL/PF 2 MG/2 ML VIAL. ONE (05:35)
[2018-07-28] MEDS ORDERED: ROCURONIUM 100 MG/10 ML VIAL. ONE (05:35)
[2018-07-28] MEDS ORDERED: NEOSTIGMINE METHYLSULFATE 5 MG/5 ML SYRINGE. ONE (05:36)
[2018-07-28] MEDS ORDERED: ONDANSETRON PF 4 MG/2 ML VIAL. ONE (05:36)
[2018-07-28] MEDS ORDERED: PROPOFOL 20 ML IV ONE (05:36)
[2018-07-28] MEDS ORDERED: DEXAMETHASONE SOD PHOS 4 MG/ML VIAL ONE (05:36)
[2018-07-28] MEDS ORDERED: LIDOCAINE 2% PF 5 ML VIAL. ONE (05:36)
[2018-07-28] MEDS ORDERED: SUCCINYLCHOLINE 200 MG/10 ML VIAL. ONE (05:37)
[2018-07-28] MEDS: IV RINGERS,LACTATED 1000ML 1,000 ML IV SCH ×2 (06:00→19:10)
--- NOTE | 2018-07-28 06:44 | EKG ---
[facility] [address] [place] [id number] Test Date: 2018-07-27 Test Time: 20:05:03 Pat Name: MARIA LARKIN Department: Room: Gender: M [employer] Administrator: : 1960 Requested By: GERMAN LOWE Order Number: [id number] Reading MD: Measurements Intervals [place] Rate: 98 P: 55 UT: 142 QRS: 50 QRSD: 80 T: 67 QT: 332 QTc: 426 Interpretive Statements SINUS RHYTHM QRS(T) CONTOUR ABNORMALITY CONSIDER ANTEROSEPTAL MYOCARDIAL DAMAGE POSSIBLY ABNORMAL ECG RI6.01 Unconfirmed report No previous ECG available for comparison
[2018-07-28] MEDS ORDERED: hydrALAZINE 20 MG/ML VIAL. ONE (07:11)
[2018-07-28] MEDS ORDERED: SEVOFLURANE 61 TO 120 MINUTES. IH ONE (07:22)
--- NOTE | 2018-07-28 07:24 | PDOC4 ---
Operative Note Operative Note Operative Note: Preoperative Diagnosis: Perforated viscus Postoperative Diagnosis: Perforated pyloric channel ulcer Procedure: Exploratory laparotomy, primary repair of perforated pyloric channel ulcer with omental patch Surgeon: Mundo Strategic Manager: Josselyn Garcia Anesthesia: Gen. EBL: 20 mL Specimen: None Drains: None Complications: None Indication: The patient is a 58-year-old male who reported to the emergency department with acute onset of abdominal pain. His evaluation included a CAT scan which raised concern for potential perforated viscus. Based on his clinical and radiographic findings we recommended surgical exploration. The risks of surgery were discussed which include bleeding, infection, anastomotic leak, visceral injury, pain, scar tissue, hernia formation, anesthetic risk, potential need for additional surgery or procedure. He understands and would like to proceed. Description: The patient was taken to the operating room and placed supine on the operating table. Gen. anesthesia was performed. The abdomen was prepped with ChloraPrep and draped in a standard surgical manner. A vertical midline incision was made with a scalpel which extended both superior and inferior to the umbilicus. Cautery dissection was carried through the subcutaneous tissues and fascia. The peritoneum was divided between clamps. Despite having prior surgery there was no significant adhesions to the abdominal wall. The Omni retractor was used for the remainder of the case and the abdomen was explored. The patient had significant gastric distention which was improved with placement of an NG tube by anesthesia. The visualized small bowel loops appeared unremarkable. The patient did have some gaseous distention of his colon with a fairly redundant sigmoid colon. However the colon appeared normal and viable with no signs of inflammatory change. Further inspection of the upper abdomen showed a small perforation site with minimal contamination at the pyloric channel. The perforation site was oversewn with interrupted 2-0 Vicryl sutures. The repair was then reinforced with a vascularized pedicle of omentum that was sutured as an onlay using 2-0 Vicryl. The abdominal cavity was irrigated with sterile saline which was suctioned. Hemostasis was good and no other abnormalities were identified. The fascia was then approximated with 1 PDS. The subcutaneous tissue was closed with 3-0 Vicryl. The skin was closed with 4-0 Monocryl. A sterile dressing was then applied. The patient tolerated the procedure well and was sent to the recovery room in stable condition. At the end of the case all counts were correct. RADHA GRIER MD Jul 28, 2018 07:24
[2018-07-28 07:42] LABS: % LYMPHS 7 % (24-48); % MONOS 2 % (0-10); % SEGS 91 % (35-66); PLT ESTIMATE ADEQUATE (ADEQUATE)
[2018-07-28] MEDS ORDERED: ONDANSETRON PF 4 MG/2 ML VIAL. IV PRN (08:30)
[2018-07-28] MEDS ORDERED: MORPHINE SULFATE 2 MG/ML VIAL. IV PRN (08:30)
[2018-07-28] MEDS: IV NORMAL SALINE 1000ML BAG 1,000 ML IV SCH ×2 (09:15→18:15)
[2018-07-28] MEDS: PANTOPRAZOLE IV PUSH 40 MG VIAL. IVP SCH ×2 (09:56→20:53)
[2018-07-28] MEDS: MEROPENEM 1 GM in IV NORMAL SALINE 100ML 100 ML IV SCH ×3 (09:57→22:05)
--- NOTE | 2018-07-28 10:06 | PDOC1 ---
History and Physical Date of Admission Date of Admission DATE: 07/28/18 TIME: 10:04 Identification/Chief Complaint Chief Complaint abd pain 10 out of 10 yesterday Source Source: Caregiver, Chart review, Patient History of Present Illness History of Present Illness 58-year-old -[place] male with history of perforated appendix in the distant past comes in thru ER last night with severe abd pain 10/10. Some pneumoperitoneum on imaging. , general surgery had to come in stat and pt underwent exploratory laparoscopy with the ff findings: Exploratory laparotomy, primary repair of perforated pyloric channel ulcer with omental patch I'm seeing him postop with NG tube, significant pain when he moves otherwise no drains, dressing dry, pain tolerable when not moving Positive cannabinoids and cocaine in UDS Tachycardic on admission, but blood pressure better Looks comfortable now as long as he lays still. Past Medical History Cardiovascular: HTN Past Surgical History Past Surgical History: Appendectomy Family History Family History: Family History Unknown Social History Smoke: No ALCOHOL: heavy Drugs: Cocaine, Other (amphetamines) Current Problem List Problem List Problems Medical Problems: (1) Abdominal pain Status: Acute (2) Perforated abdominal viscus Status: Acute Current Medications Current Medications Current Medications Fentanyl Citrate (Fentanyl 2ml Vial) 50 mcg PRN Q15MIN PRN IV PAIN GREATER THAN 3/10 Last administered on 07/28/18at 08:30; Start 07/27/18 at 20:15; Stop 07/28/18 at 20:14 Sodium Chloride 1,000 ml @ 1,000 mls/hr Q1H IV Last administered on 07/27/18at 20:29; Start 07/27/18 at 20:06; Stop 07/27/18 at 21:05; Status DC Ondansetron HCl (Zofran) 4 mg 1X ONCE IV Last administered on 07/27/18at 20:29; Start 07/27/18 at 20:15; Stop 07/27/18 at 20:19; Status DC Iohexol (Omnipaque 300 Mg/ml) 75 ml 1X ONCE IV Last administered on 07/27/18at 21:05; Start 07/27/18 at 21:00; Stop 07/27/18 at 21:01; Status DC Meropenem 1 gm/ Sodium Chloride 100 ml @ 200 mls/hr Q8HRS IV Last administered on 07/28/18at 09:57; Start 07/27/18 at 22:30 Ondansetron HCl (Zofran) 4 mg PRN Q8HRS PRN IV NAUSEA/VOMITING 1ST CHOICE; Start 07/27/18 at 22:15; Stop 07/28/18 at 08:29; Status DC Fentanyl Citrate (Fentanyl 2ml Vial) 50 mcg PRN Q1HR PRN IV SEVERE PAIN Last administered on 07/28/18at 05:46; Start 07/27/18 at 22:15; Stop 07/28/18 at 08:30; Status DC Sodium Chloride 1,000 ml @ 125 mls/hr Q8H IV Last administered on 07/28/18at 09:15; Start 07/27/18 at 22:30; Stop 07/28/18 at 22:29 Methylprednisolone Sodium Succinate (SOLU-Medrol 125MG VIAL) 125 mg 1X ONCE IV Last administered on 07/27/18at 22:28; Start 07/27/18 at 23:00; Stop 07/27/18 at 23:01; Status DC Diphenhydramine HCl (Benadryl) 25 mg 1X ONCE IVP Last administered on 07/27/18at 22:29; Start 07/27/18 at 23:00; Stop 07/27/18 at 23:01; Status DC Cefazolin Sodium/ Dextrose 50 ml @ 100 mls/hr PREOP PRN PRN IV PREOP Last ad ministered on 07/28/18at 06:05; Start 07/28/18 at 05:30; Stop 07/29/18 at 05:29 Metronidazole 100 ml @ 100 mls/hr PREOP PRN PRN IV PREOP Last administered on 07/28/18at 06:20; Start 07/28/18 at 05:30; Stop 07/29/18 at 05:29 Sevoflurane (Ultane) 90 ml STK-MED ONCE IH ; Start 07/28/18 at 05:34; Stop 07/28/18 at 05:35; Status DC Midazolam HCl (Versed) 2 mg STK-MED ONCE .ROUTE ; Start 07/28/18 at 05:35; Stop 07/28/18 at 05:36; Status DC Fentanyl Citrate (Fentanyl 2ml Vial) 100 mcg STK-MED ONCE .ROUTE ; Start 07/28/18 at 05:35; Stop 07/28/18 at 05:36; Status DC Rocuronium Riesel (Zemuron) 100 mg STK-MED ONCE .ROUTE ; Start 07/28/18 at 05:35; Stop 07/28/18 at 05:36; Status DC Glycopyrrolate (Robinul) 1 mg STK-MED ONCE .ROUTE ; Start 07/28/18 at 05:35; Stop 07/28/18 at 05:36; Status DC Neostigmine Methylsulfate (Neostigmine Methylsulfate) 5 mg STK-MED ONCE .ROUTE ; Start 07/28/18 at 05:36; Stop 07/28/18 at 05:37; Status DC Propofol 20 ml @ As Directed STK-MED ONCE IV ; Start 07/28/18 at 05:36; Stop 07/28/18 at 05:37; Status DC Lidocaine HCl (Lidocaine Pf 2% Vial) 5 ml STK-MED ONCE .ROUTE ; Start 07/28/18 at 05:36; Stop 07/28/18 at 05:37; Status DC Dexamethasone Sodium Phosphate (Decadron) 4 mg STK-MED ONCE .ROUTE ; Start 07/28/18 at 05:36; Stop 07/28/18 at 05:37; Status DC Ondansetron HCl (Zofran) 4 mg STK-MED ONCE .ROUTE ; Start 07/28/18 at 05:36; Stop 07/28/18 at 05:37; Status DC Succinylcholine Chloride (Anectine) 200 mg STK-MED ONCE .ROUTE ; Start 07/28/18 at 05:37; Stop 07/28/18 at 05:38; Status DC Fentanyl Citrate (Fentanyl 2ml Vial) 100 mcg STK-MED ONCE .ROUTE ; Start 07/28/18 at 06:50; Stop 07/28/18 at 06:51; Status DC Hydralazine HCl (Apresoline Inj) 20 mg STK-MED ONCE .ROUTE ; Start 07/28/18 at 07:11; Stop 07/28/18 at 07:12; Status DC Pantoprazole Sodium (PROTONIX VIAL for IV PUSH) 40 mg BID IVP Last administered on 07/28/18at 09:56; Start 07/28/18 at 09:00 Sevoflurane (Ultane) 60 ml STK-MED ONCE IH ; Start 07/28/18 at 07:22; Stop 07/28/18 at 07:23; Status DC Fentanyl Citrate (Fentanyl 2ml Vial) 100 mcg STK-MED ONCE .ROUTE ; Start 07/28/18 at 08:00; Stop 07/28/18 at 08:01; Status DC Ondansetron HCl (Zofran) 4 mg PRN Q6HRS PRN IV NAUSEA/VOMITING 1ST CHOICE; Start 07/28/18 at 08:30 Morphine Sulfate (Morphine Sulfate) 2 mg PRN Q2HR PRN IV PAIN Last administered on 07/28/18at 09:14; Start 07/28/18 at 08:30 Ringer's Solution 1,000 ml @ 75 mls/hr [id number] IV Last administered on 07/28/18at 06:00; Start 07/28/18 at 05:50 Active Scripts Active Reported No Known Medications Prior To Admisstion (Info) Each 1 Each MC 1X Allergies Allergies: Coded Allergies: Penicillins (Verified Allergy, Intermediate, RASH, SHORTNESS OF BREATH, 07/27/18) acetaminophen (Verified Allergy, Intermediate, 12/10/15) ROS Review of System limited ROS, postop, significant pain or otherwise mildly sedated Physical Exam General: No acute distress, Other (is trying to rest postop, dressing dry) HEENT: Atraumatic, PERRLA Lungs: Clear to auscultation, Normal air movement Heart: S1S2, RRR, no thrills, no rubs, no gallops, no murmurs Cardiovascular: S1, S2 Abdomen: Normal bowel sounds, Soft, Other (tenderness postop area under mild palpation, dressing dry) Male Genitals Exam: normal genitalia, normal prostate Rectal Exam: not examined PELVIC: Nml ext genitalia Extremities: No clubbing, No cyanosis, No edema, Normal pulses, No t enderness/swelling Skin: No rashes, No breakdown, No significant lesion Neuro: Normal gait, Normal speech, Strength at 5/5 X4 ext, Normal tone, Sensation intact, Cranial nerves 3-12 NL, Reflexes 2+ Psych/Mental Status: Mental status NL, Mood NL Vitals Vitals Vital Signs Date Time Temp Pulse Resp B/P (MAP) Pulse Ox O2 Delivery O2 Flow Rate FiO2 07/28/18 09:57 Room Air 07/28/18 08:50 97.9 106 17 142/73 99 97.9 07/28/18 07:45 8 Labs Labs Laboratory Tests Test 07/27/18 20:11 07/27/18 23:05 07/27/18 23:40 07/28/18 04:40 White Blood Count 3.8 x10^3/uL (4.0-11.0) 8.4 x10^3/uL (4.0-11.0) Red Blood Count 5.22 x10^6/uL (4.30-5.70) 5.08 x10^6/uL (4.30-5.70) Hemoglobin 14.8 g/dL (13.0-17.5) 14.4 g/dL (13.0-17.5) Hematocrit 43.6 % (39.0-53.0) 42.7 % (39.0-53.0) Mean Corpuscular Volume 84 fL (79-100) 84 fL (79-100) Mean Corpuscular Hemoglobin 28 pg (25-35) 29 pg (25-35) Mean Corpuscular Hemoglobin Concent 34 g/dL (31-37) 34 g/dL (31-37) Red Cell Distribution Width 14.0 % (11.5-14.5) 13.8 % (11.5-14.5) Platelet Count 153 x10^3/uL (140-400) 140 x10^3/uL (140-400) Neutrophils (%) (Auto) 46 % (31-73) 94 % (31-73) Lymphocytes (%) (Auto) 41 % (24-48) 4 % (24-48) Monocytes (%) (Auto) 8 % (0-9) 2 % (0-9) Eosinophils (%) (Auto) 2 % (0-3) 0 % (0-3) Basophils (%) (Auto) 3 % (0-3) 0 % (0-3) Neutrophils # (Auto) 1.8 x10^3uL (1.8-7.7) 7.8 x10^3uL (1.8-7.7) Lymphocytes # (Auto) 1.6 x10^3/uL (1.0-4.8) 0.4 x10^3/uL (1.0-4.8) Monocytes # (Auto) 0.3 x10^3/uL (0.0-1.1) 0.1 x10^3/uL (0.0-1.1) Eosinophils # (Auto) 0.1 x10^3/uL (0.0-0.7) 0.0 x10^3/uL (0.0-0.7) Basophils # (Auto) 0.1 x10^3/uL (0.0-0.2) 0.0 x10^3/uL (0.0-0.2) Activated Partial Thromboplast Time 28 SEC (24-38) Sodium Level 141 mmol/L (136-145) 140 mmol/L (136-145) Potassium Level 3.7 mmol/L (3.5-5.1) 4.1 mmol/L (3.5-5.1) Chloride Level 101 mmol/L (98-107) 103 mmol/L (98-107) Carbon Dioxide Level 35 mmol/L (21-32) 28 mmol/L (21-32) Anion Gap 5 (6-14) 9 (6-14) Blood Urea Nitrogen 11 mg/dL (8-26) 12 mg/dL (8-26) Creatinine 1.2 mg/dL (0.7-1.3) 1.0 mg/dL (0.7-1.3) Estimated GFR (Cockcroft-Gault) 74.7 92.2 BUN/Creatinine Ratio 9 (6-20) Glucose Level 108 mg/dL (70-99) 123 mg/dL (70-99) Calcium Level 9.2 mg/dL (8.5-10.1) 8.4 mg/dL (8.5-10.1) Total Bilirubin 0.8 mg/dL (0.2-1.0) Aspartate Amino Transf (AST/SGOT) 14 U/L (15-37) Alanine Aminotransferase (ALT/SGPT) 18 U/L (16-63) Alkaline Phosphatase 85 U/L (46-116) Troponin I Quantitative < 0.017 ng/mL (0.000-0.055) Total Protein 7.0 g/dL (6.4-8.2) Albumin 4.0 g/dL (3.4-5.0) Albumin/Globulin Ratio 1.3 (1.0-1.7) Lipase 66 U/L (73-393) Ethyl Alcohol Level < 10 mg/dL (0-10) Lactic Acid Level 0.8 mmol/L (0.4-2.0) 0.8 mmol/L (0.4-2.0) Urine Collection Type Unknown Urine Color Whitney Urine Clarity Clear Urine pH 7.0 Urine Specific [place] >=1.030 Urine Protein Negative mg/dL (NEG-TRACE) Urine Glucose (UA) Negative mg/dL (NEG) Urine Ketones (Stick) Trace mg/dL (NEG) Urine Blood Negative (NEG) Urine Nitrite Negative (NEG) Urine Bilirubin Small (NEG) Urine Urobilinogen Dipstick 2.0 mg/dL (0.2 mg/dL) Urine Leukocyte Esterase Small (NEG) Urine RBC 0 /HPF (0-2) Urine WBC 5-10 /HPF (0-4) Urine Squamous Epithelial Cells Few /LPF Urine Bacteria 0 /HPF (0-FEW) Urine Mucus Slight /LPF Urine Opiates Screen Neg (NEG) Urine Methadone Screen Neg (NEG) Urine Barbiturates Neg (NEG) Urine Phencyclidine Screen Neg (NEG) Urine Amphetamine/Methamphetamine Pos (NEG) Urine Benzodiazepines Screen Neg (NEG) Urine Cocaine Screen Pos (NEG) Urine Cannabinoids Screen Neg (NEG) Urine Ethyl Alcohol Neg (NEG) Segmented Neutrophils % 91 % (35-66) Lymphocytes % 7 % (24-48) Monocytes % 2 % (0-10) Platelet Estimate Adequate (ADEQUATE) Laboratory Tests Test 07/27/18 20:11 07/27/18 23:05 07/27/18 23:40 07/28/18 04:40 White Blood Count 3.8 x10^3/uL (4.0-11.0) 8.4 x10^3/uL (4.0-11.0) Red Blood Count 5.22 x10^6/uL (4.30-5.70) 5.08 x10^6/uL (4.30-5.70) Hemoglobin 14.8 g/dL (13.0-17.5) 14.4 g/dL (13.0-17.5) Hematocrit 43.6 % (39.0-53.0) 42.7 % (39.0-53.0) Mean Corpuscular Volume 84 fL (79-100) 84 fL (79-100) Mean Corpuscular Hemoglobin 28 pg (25-35) 29 pg (25-35) Mean Corpuscular Hemoglobin Concent 34 g/dL (31-37) 34 g/dL (31-37) Red Cell Distribution Width 14.0 % (11.5-14.5) 13.8 % (11.5-14.5) Platelet Count 153 x10^3/uL (140-400) 140 x10^3/uL (140-400) Neutrophils (%) (Auto) 46 % (31-73) 94 % (31-73) Lymphocytes (%) (Auto) 41 % (24-48) 4 % (24-48) Monocytes (%) (Auto) 8 % (0-9) 2 % (0-9) Eosinophils (%) (Auto) 2 % (0-3) 0 % (0-3) Basophils (%) (Auto) 3 % (0-3) 0 % (0-3) Neutrophils # (Auto) 1.8 x10^3uL (1.8-7.7) 7.8 x10^3uL (1.8-7.7) Lymphocytes # (Auto) 1.6 x10^3/uL (1.0-4.8) 0.4 x10^3/uL (1.0-4.8) Monocytes # (Auto) 0.3 x10^3/uL (0.0-1.1) 0.1 x10^3/uL (0.0-1.1) Eosinophils # (Auto) 0.1 x10^3/uL (0.0-0.7) 0.0 x10^3/uL (0.0-0.7) Basophils # (Auto) 0.1 x10^3/uL (0.0-0.2) 0.0 x10^3/uL (0.0-0.2) Activated Partial Thromboplast Time 28 SEC (24-38) Sodium Level 141 mmol/L (136-145) 140 mmol/L (136-145) Potassium Level 3.7 mmol/L (3.5-5.1) 4.1 mmol/L (3.5-5.1) Chloride Level 101 mmol/L (98-107) 103 mmol/L (98-107) Carbon Dioxide Level 35 mmol/L (21-32) 28 mmol/L (21-32) Anion Gap 5 (6-14) 9 (6-14) Blood Urea Nitrogen 11 mg/dL (8-26) 12 mg/dL (8-26) Creatinine 1.2 mg/dL (0.7-1.3) 1.0 mg/dL (0.7-1.3) Estimated GFR (Cockcroft-Gault) 74.7 92.2 BUN/Creatinine Ratio 9 (6-20) Glucose Level 108 mg/dL (70-99) 123 mg/dL (70-99) Calcium Level 9.2 mg/dL (8.5-10.1) 8.4 mg/dL (8.5-10.1) Total Bilirubin 0.8 mg/dL (0.2-1.0) Aspartate Amino Transf (AST/SGOT) 14 U/L (15-37) Alanine Aminotransferase (ALT/SGPT) 18 U/L (16-63) Alkaline Phosphatase 85 U/L (46-116) Troponin I Quantitative < 0.017 ng/mL (0.000-0.055) Total Protein 7.0 g/dL (6.4-8.2) Albumin 4.0 g/dL (3.4-5.0) Albumin/Globulin Ratio 1.3 (1.0-1.7) Lipase 66 U/L (73-393) Ethyl Alcohol Level < 10 mg/dL (0-10) Lactic Acid Level 0.8 mmol/L (0.4-2.0) 0.8 mmol/L (0.4-2.0) Urine Collection Type Unknown Urine Color Whitney Urine Clarity Clear Urine pH 7.0 Urine Specific [place] >=1.030 Urine Protein Negative mg/dL (NEG-TRACE) Urine Glucose (UA) Negative mg/dL (NEG) Urine Ketones (Stick) Trace mg/dL (NEG) Urine Blood Negative (NEG) Urine Nitrite Negative (NEG) Urine Bilirubin Small (NEG) Urine Urobilinogen Dipstick 2.0 mg/dL (0.2 mg/dL) Urine Leukocyte Esterase Small (NEG) Urine RBC 0 /HPF (0-2) Urine WBC 5-10 /HPF (0-4) Urine Squamous Epithelial Cells Few /LPF Urine Bacteria 0 /HPF (0-FEW) Urine Mucus Slight /LPF Urine Opiates Screen Neg (NEG) Urine Methadone Screen Neg (NEG) Urine Barbiturates Neg (NEG) Urine Phencyclidine Screen Neg (NEG) Urine Amphetamine/Methamphetamine Pos (NEG) Urine Benzodiazepines Screen Neg (NEG) Urine Cocaine Screen Pos (NEG) Urine Cannabinoids Screen Neg (NEG) Urine Ethyl Alcohol Neg (NEG) Segmented Neutrophils % 91 % (35-66) Lymphocytes % 7 % (24-48) Monocytes % 2 % (0-10) Platelet Estimate Adequate (ADEQUATE) VTE Prophylaxis Ordered VTE Prophylaxis Devices: Yes VTE Pharmacological Prophylaxi: Yes Assessment/Plan Assessment/Plan s/p Exploratory laparotomy, primary repair of perforated pyloric channel ulcer with omental patch - 07/27.19 The alcoholism Positive amphetamine and cocaine use-UDS in the system History of perforated appendix distant past Plan: postop care, keep NG tube, banana bag 1 L for 5 days then resume the current normal saline at 125 mL an hour Ativan when necessary for alcohol withdrawal but he is getting significant pain medicine so I don't think he will go into withdrawals Add PPI and DVT prophylaxis since nothing by mouth Follow GS recs increase morphine to 4 remains IV every 2 for pain control Discussed with RN Postop labs tomorrow ARAVIND ZEE MD Jul 28, 2018 10:06
[2018-07-28] MEDS ORDERED: PANTOPRAZOLE IV PUSH 40 MG VIAL. IVP ONE (10:15)
[2018-07-28] MEDS: ENOXAPARIN 40 MG/0.4 ML SYRINGE. SQ SCH (11:00)
[2018-07-28] MEDS: MULTIVIT INFUSN,ADULT 4,VIT K 10 ML, THIAMINE INJ 100 MG, FOLIC ACID INJ 1 MG in IV NOR... IV SCH (11:17)
[2018-07-28] MEDS: MORPHINE SULFATE 4 MG/ML VIAL. IV PRN ×4 (11:19→21:17)
--- NOTE | 2018-07-28 11:25 | NUR ---
patients 1X dose of Protonix was non-administered due to duplicate order. 40 of Protonix was administered IV previously at 0956.
[2018-07-29] MEDS: MORPHINE SULFATE 4 MG/ML VIAL. IV PRN ×6 (00:30→18:55)
[2018-07-29 03:00] VITALS: BP 155/99
[2018-07-29] MEDS: MEROPENEM 1 GM in IV NORMAL SALINE 100ML 100 ML IV SCH ×3 (06:00→21:48)
[2018-07-29 07:00] VITALS: BP 153/87
[2018-07-29] MEDS ORDERED: PANTOPRAZOLE IV PUSH 40 MG VIAL. IVP SCH (07:30)
--- NOTE | 2018-07-29 08:12 | NUR ---
SW following pt for anticipated dc needs. Chart reviewed. Pt is from home and is self pay. No dc recommendations noted at this time.
[2018-07-29 08:58] LABS: BASO % 1 % (0-3); EOS % 1 % (0-3); HEMATOCRIT 42.2 % (39.0-53.0); HEMOGLOBIN 14.5 g/dL (13.0-17.5); LYMPH # 1.6 x10^3/uL (1.0-4.8); LYMPH % 24 % (24-48); MEAN CORPUSCULAR HEMOGLOBIN 29 pg (25-35); MEAN CORPUSCULAR HGB CONC 34 g/dL (31-37); MEAN CORPUSCULAR VOLUME 84 fL (79-100); MONO # 0.4 x10^3/uL (0.0-1.1); MONO % 5 % (0-9); NEUT # 4.6 x10^3uL (1.8-7.7); NEUT % 69 % (31-73); PLATELET COUNT 131 x10^3/uL (140-400); RED BLOOD COUNT 5.05 x10^6/uL (4.30-5.70); WHITE BLOOD COUNT 6.7 x10^3/uL (4.0-11.0)
[2018-07-29] MEDS: PANTOPRAZOLE IV PUSH 40 MG VIAL. IVP SCH ×2 (09:04→21:48)
[2018-07-29] MEDS: MULTIVIT INFUSN,ADULT 4,VIT K 10 ML, THIAMINE INJ 100 MG, FOLIC ACID INJ 1 MG in IV NOR... IV SCH (09:05)
[2018-07-29 09:19] LABS: CALCIUM 8.1 mg/dL (8.5-10.1); CREATININE 1.1 mg/dL (0.7-1.3); GFR 82.6; POTASSIUM 3.6 mmol/L (3.5-5.1)
--- NOTE | 2018-07-29 09:23 | PDOC ---
PROGRESS NOTES Chief Complaint Chief Complaint s/p Exploratory laparotomy, primary repair of perforated pyloric channel ulcer with omental patch - alcoholism Positive amphetamine and cocaine use-UDS in the system History of perforated appendix distant past History of Present Illness History of Present Illness Postop day #2 800 mL of blackish NG tube drainage Still significant tenderness on mild palpation,if he lays still, pain tolerable Might need TPN/PICC? Just on IVF and unknown prolonged period of NPO Plan I did inform mid-level GS regarding thoughts about PICC/ TPN?-We'll defer to the service Continue present pain management seems to be working okay Continue NG tube-still a lot of drainage Discussed with RN Pt gives consent for TPN/PICC if needed Vitals Vitals Vital Signs Date Time Temp Pulse Resp B/P (MAP) Pulse Ox O2 Delivery O2 Flow Rate FiO2 07/29/18 09:08 Room Air 07/29/18 07:00 98.0 101 16 153/87 (109) 97 98.0 07/28/18 07:45 8 Physical Exam General: No acute distress, Other (is trying to rest postop, dressing dry) Heart: Regular rate, Normal S1, Normal S2 Lungs: Clear Abdomen: Normal bowel sounds, Soft, Other (tenderness postop area under mild palpation, dressing dry) Extremities: No clubbing, No cyanosis, No edema, Normal pulses, No tenderness/swelling Skin: No rashes, No breakdown, No significant lesion Labs LABS Laboratory Tests Test 07/29/18 08:15 White Blood Count 6.7 x10^3/uL (4.0-11.0) Red Blood Count 5.05 x10^6/uL (4.30-5.70) Hemoglobin 14.5 g/dL (13.0-17.5) Hematocrit 42.2 % (39.0-53.0) Mean Corpuscular Volume 84 fL (79-100) Mean Corpuscular Hemoglobin 29 pg (25-35) Mean Corpuscular Hemoglobin Concent 34 g/dL (31-37) Red Cell Distribution Width 14.0 % (11.5-14.5) Platelet Count 131 x10^3/uL (140-400) Neutrophils (%) (Auto) 69 % (31-73) Lymphocytes (%) (Auto) 24 % (24-48) Monocytes (%) (Auto) 5 % (0-9) Eosinophils (%) (Auto) 1 % (0-3) Basophils (%) (Auto) 1 % (0-3) Neutrophils # (Auto) 4.6 x10^3uL (1.8-7.7) Lymphocytes # (Auto) 1.6 x10^3/uL (1.0-4.8) Monocytes # (Auto) 0.4 x10^3/uL (0.0-1.1) Eosinophils # (Auto) 0.0 x10^3/uL (0.0-0.7) Basophils # (Auto) 0.0 x10^3/uL (0.0-0.2) Review of Systems Review of Systems post op tenderness and pain, the rest of ROS 14 point negative Assessment and Plan Assessmemt and Plan Problems Medical Problems: (1) Abdominal pain Status: Acute (2) Perforated abdominal viscus Status: Acute Comment Review of Relevant I have reviewed the following items steph (where applicable) has been applied. Labs Laboratory Tests Test 07/27/18 20:11 07/27/18 23:05 07/27/18 23:40 07/28/18 04:40 White Blood Count 3.8 x10^3/uL (4.0-11.0) 8.4 x10^3/uL (4.0-11.0) Red Blood Count 5.22 x10^6/uL (4.30-5.70) 5.08 x10^6/uL (4.30-5.70) Hemoglobin 14.8 g/dL (13.0-17.5) 14.4 g/dL (13.0-17.5) Hematocrit 43.6 % (39.0-53.0) 42.7 % (39.0-53.0) Mean Corpuscular Volume 84 fL (79-100) 84 fL (79-100) Mean Corpuscular Hemoglobin 28 pg (25-35) 29 pg (25-35) Mean Corpuscular Hemoglobin Concent 34 g/dL (31-37) 34 g/dL (31-37) Red Cell Distribution Width 14.0 % (11.5-14.5) 13.8 % (11.5-14.5) Platelet Count 153 x10^3/uL (140-400) 140 x10^3/uL (140-400) Neutrophils (%) (Auto) 46 % (31-73) 94 % (31-73) Lymphocytes (%) (Auto) 41 % (24-48) 4 % (24-48) Monocytes (%) (Auto) 8 % (0-9) 2 % (0-9) Eosinophils (%) (Auto) 2 % (0-3) 0 % (0-3) Basophils (%) (Auto) 3 % (0-3) 0 % (0-3) Neutrophils # (Auto) 1.8 x10^3uL (1.8-7.7) 7.8 x10^3uL (1.8-7.7) Lymphocytes # (Auto) 1.6 x10^3/uL (1.0-4.8) 0.4 x10^3/uL (1.0-4.8) Monocytes # (Auto) 0.3 x10^3/uL (0.0-1.1) 0.1 x10^3/uL (0.0-1.1) Eosinophils # (Auto) 0.1 x10^3/uL (0.0-0.7) 0.0 x10^3/uL (0.0-0.7) Basophils # (Auto) 0.1 x10^3/uL (0.0-0.2) 0.0 x10^3/uL (0.0-0.2) Activated Partial Thromboplast Time 28 SEC (24-38) Sodium Level 141 mmol/L (136-145) 140 mmol/L (136-145) Potassium Level 3.7 mmol/L (3.5-5.1) 4.1 mmol/L (3.5-5.1) Chloride Level 101 mmol/L (98-107) 103 mmol/L (98-107) Carbon Dioxide Level 35 mmol/L (21-32) 28 mmol/L (21-32) Anion Gap 5 (6-14) 9 (6-14) Blood Urea Nitrogen 11 mg/dL (8-26) 12 mg/dL (8-26) Creatinine 1.2 mg/dL (0.7-1.3) 1.0 mg/dL (0.7-1.3) Estimated GFR (Cockcroft-Gault) 74.7 92.2 BUN/Creatinine Ratio 9 (6-20) Glucose Level 108 mg/dL (70-99) 123 mg/dL (70-99) Calcium Level 9.2 mg/dL (8.5-10.1) 8.4 mg/dL (8.5-10.1) Total Bilirubin 0.8 mg/dL (0.2-1.0) Aspartate Amino Transf (AST/SGOT) 14 U/L (15-37) Alanine Aminotransferase (ALT/SGPT) 18 U/L (16-63) Alkaline Phosphatase 85 U/L (46-116) Troponin I Quantitative < 0.017 ng/mL (0.000-0.055) Total Protein 7.0 g/dL (6.4-8.2) Albumin 4.0 g/dL (3.4-5.0) Albumin/Globulin Ratio 1.3 (1.0-1.7) Lipase 66 U/L (73-393) Ethyl Alcohol Level < 10 mg/dL (0-10) Lactic Acid Level 0.8 mmol/L (0.4-2.0) 0.8 mmol/L (0.4-2.0) Urine Collection Type Unknown Urine Color [place] Urine Clarity Clear Urine pH 7.0 Urine Specific [place] >=1.030 Urine Protein Negative mg/dL (NEG-TRACE) Urine Glucose (UA) Negative mg/dL (NEG) Urine Ketones (Stick) Trace mg/dL (NEG) Urine Blood Negative (NEG) Urine Nitrite Negative (NEG) Urine Bilirubin Small (NEG) Urine Urobilinogen Dipstick 2.0 mg/dL (0.2 mg/dL) Urine Leukocyte Esterase Small (NEG) Urine RBC 0 /HPF (0-2) Urine WBC 5-10 /HPF (0-4) Urine Squamous Epithelial Cells Few /LPF Urine Bacteria 0 /HPF (0-FEW) Urine Mucus Slight /LPF Urine Opiates Screen Neg (NEG) Urine Methadone Screen Neg (NEG) Urine Barbiturates Neg (NEG) Urine Phencyclidine Screen Neg (NEG) Urine Amphetamine/Methamphetamine Pos (NEG) Urine Benzodiazepines Screen Neg (NEG) Urine Cocaine Screen Pos (NEG) Urine Cannabinoids Screen Neg (NEG) Urine Ethyl Alcohol Neg (NEG) Segmented Neutrophils % 91 % (35-66) Lymphocytes % 7 % (24-48) Monocytes % 2 % (0-10) Platelet Estimate Adequate (ADEQUATE) Test 07/29/18 08:15 White Blood Count 6.7 x10^3/uL (4.0-11.0) Red Blood Count 5.05 x10^6/uL (4.30-5.70) Hemoglobin 14.5 g/dL (13.0-17.5) Hematocrit 42.2 % (39.0-53.0) Mean Corpuscular Volume 84 fL (79-100) Mean Corpuscular Hemoglobin 29 pg (25-35) Mean Corpuscular Hemoglobin Concent 34 g/dL (31-37) Red Cell Distribution Width 14.0 % (11.5-14.5) Platelet Count 131 x10^3/uL (140-400) Neutrophils (%) (Auto) 69 % (31-73) Lymphocytes (%) (Auto) 24 % (24-48) Monocytes (%) (Auto) 5 % (0-9) Eosinophils (%) (Auto) 1 % (0-3) Basophils (%) (Auto) 1 % (0-3) Neutrophils # (Auto) 4.6 x10^3uL (1.8-7.7) Lymphocytes # (Auto) 1.6 x10^3/uL (1.0-4.8) Monocytes # (Auto) 0.4 x10^3/uL (0.0-1.1) Eosinophils # (Auto) 0.0 x10^3/uL (0.0-0.7) Basophils # (Auto) 0.0 x10^3/uL (0.0-0.2) Laboratory Tests Test 07/29/18 08:15 White Blood Count 6.7 x10^3/uL (4.0-11.0) Red Blood Count 5.05 x10^6/uL (4.30-5.70) Hemoglobin 14.5 g/dL (13.0-17.5) Hematocrit 42.2 % (39.0-53.0) Mean Corpuscular Volume 84 fL (79-100) Mean Corpuscular Hemoglobin 29 pg (25-35) Mean Corpuscular Hemoglobin Concent 34 g/dL (31-37) Red Cell Distribution Width 14.0 % (11.5-14.5) Platelet Count 131 x10^3/uL (140-400) Neutrophils (%) (Auto) 69 % (31-73) Lymphocytes (%) (Auto) 24 % (24-48) Monocytes (%) (Auto) 5 % (0-9) Eosinophils (%) (Auto) 1 % (0-3) Basophils (%) (Auto) 1 % (0-3) Neutrophils # (Auto) 4.6 x10^3uL (1.8-7.7) Lymphocytes # (Auto) 1.6 x10^3/uL (1.0-4.8) Monocytes # (Auto) 0.4 x10^3/uL (0.0-1.1) Eosinophils # (Auto) 0.0 x10^3/uL (0.0-0.7) Basophils # (Auto) 0.0 x10^3/uL (0.0-0.2) Microbiology 07/28/18 Blood Culture - Preliminary, Resulted NO GROWTH AFTER 1 DAY Medications Current Medications Fentanyl Citrate (Fentanyl 2ml Vial) 50 mcg PRN Q15MIN PRN IV PAIN GREATER THAN 3/10 Last administered on 07/28/18at 08:30; Start 07/27/18 at 20:15; Stop 07/28/18 at 20:14; Status DC Sodium Chloride 1,000 ml @ 1,000 mls/hr Q1H IV Last administered on 07/27/18at 20:29; Start 07/27/18 at 20:06; Stop 07/27/18 at 21:05; Status DC Ondansetron HCl (Zofran) 4 mg 1X ONCE IV Last administered on 07/27/18at 20:29; Start 07/27/18 at 20:15; Stop 07/27/18 at 20:19; Status DC Iohexol (Omnipaque 300 Mg/ml) 75 ml 1X ONCE IV Last administered on 07/27/18at 21:05; Start 07/27/18 at 21:00; Stop 07/27/18 at 21:01; Status DC Meropenem 1 gm/ Sodium Chloride 100 ml @ 200 mls/hr Q8HRS IV Last administered on 07/29/18at 06:00; Start 07/27/18 at 22:30 Ondansetron HCl (Zofran) 4 mg PRN Q8HRS PRN IV NAUSEA/VOMITING 1ST CHOICE; S tart 07/27/18 at 22:15; Stop 07/28/18 at 08:29; Status DC Fentanyl Citrate (Fentanyl 2ml Vial) 50 mcg PRN Q1HR PRN IV SEVERE PAIN Last administered on 07/28/18at 05:46; Start 07/27/18 at 22:15; Stop 07/28/18 at 08:30; Status DC Sodium Chloride 1,000 ml @ 125 mls/hr Q8H IV Last administered on 07/28/18at 18:15; Start 07/27/18 at 22:30; Stop 07/28/18 at 22:29; Status DC Methylprednisolone Sodium Succinate (SOLU-Medrol 125MG VIAL) 125 mg 1X ONCE IV Last administered on 07/27/18at 22:28; Start 07/27/18 at 23:00; Stop 07/27/18 at 23:01; Status DC Diphenhydramine HCl (Benadryl) 25 mg 1X ONCE IVP Last administered on 07/27/18at 22:29; Start 07/27/18 at 23:00; Stop 07/27/18 at 23:01; Status DC Cefazolin Sodium/ Dextrose 50 ml @ 100 mls/hr PREOP PRN PRN IV PREOP Last administered on 07/28/18at 06:05; Start 07/28/18 at 05:30; Stop 07/29/18 at 05:30; Status DC Metronidazole 100 ml @ 100 mls/hr PREOP PRN PRN IV PREOP Last administered on 07/28/18at 06:20; Start 07/28/18 at 05:30; Stop 07/29/18 at 05:30; Status DC Sevoflurane (Ultane) 90 ml STK-MED ONCE IH ; Start 07/28/18 at 05:34; Stop 07/28/18 at 05:35; Status DC Midazolam HCl (Versed) 2 mg STK-MED ONCE .ROUTE ; Start 07/28/18 at 05:35; Stop 07/28/18 at 05:36; Status DC Fentanyl Citrate (Fentanyl 2ml Vial) 100 mcg STK-MED ONCE .ROUTE ; Start 07/28/18 at 05:35; Stop 07/28/18 at 05:36; Status DC Rocuronium [place] (Zemuron) 100 mg STK-MED ONCE .ROUTE ; Start 07/28/18 at 05:35; Stop 07/28/18 at 05:36; Status DC Glycopyrrolate (Robinul) 1 mg STK-MED ONCE .ROUTE ; Start 07/28/18 at 05:35; Stop 07/28/18 at 05:36; Status DC Neostigmine Methylsulfate (Neostigmine Methylsulfate) 5 mg STK-MED ONCE .ROUTE ; Start 07/28/18 at 05:36; Stop 07/28/18 at 05:37; Status DC Propofol 20 ml @ As Directed STK-MED ONCE IV ; Start 07/28/18 at 05:36; Stop 07/28/18 at 05:37; Status DC Lidocaine HCl (Lidocaine Pf 2% Vial) 5 ml STK-MED ONCE .ROUTE ; Start 07/28/18 at 05:36; Stop 07/28/18 at 05:37; Status DC Dexamethasone Sodium Phosphate (Decadron) 4 mg STK-MED ONCE .ROUTE ; Start 07/28/18 at 05:36; Stop 07/28/18 at 05:37; Status DC Ondansetron HCl (Zofran) 4 mg STK-MED ONCE .ROUTE ; Start 07/28/18 at 05:36; Stop 07/28/18 at 05:37; Status DC Succinylcholine Chloride (Ane[place]ine) 200 mg STK-MED ONCE .ROUTE ; Start 07/28/18 at 05:37; Stop 07/28/18 at 05:38; Status DC Fentanyl Citrate (Fentanyl 2ml Vial) 100 mcg STK-MED ONCE .ROUTE ; Start 07/28/18 at 06:50; Stop 07/28/18 at 06:51; Status DC Hydralazine HCl (Apresoline Inj) 20 mg STK-MED ONCE .ROUTE ; Start 07/28/18 at 07:11; Stop 07/28/18 at 07:12; Status DC Pantoprazole Sodium (PROTONIX VIAL for IV PUSH) 40 mg BID IVP Last administered on 07/29/18at 09:04; Start 07/28/18 at 09:00 Sevoflurane (Ultane) 60 ml STK-MED ONCE IH ; Start 07/28/18 at 07:22; Stop 07/28/18 at 07:23; Status DC Fentanyl Citrate (Fentanyl 2ml Vial) 100 mcg STK-MED ONCE .ROUTE ; Start 07/28/18 at 08:00; Stop 07/28/18 at 08:01; Status DC Ondansetron HCl (Zofran) 4 mg PRN Q6HRS PRN IV NAUSEA/VOMITING 1ST CHOICE; Start 07/28/18 at 08:30 Morphine Sulfate (Morphine Sulfate) 2 mg PRN Q2HR PRN IV PAIN Last administered on 07/28/18at 09:14; Start 07/28/18 at 08:30; Stop 07/28/18 at 10:05; Status DC Ringer's Solution 1,000 ml @ 75 mls/hr [id number] IV Last administered on 07/28/18at 19:10; Start 07/28/18 at 05:50 Morphine Sulfate (Morphine Sulfate) 4 mg PRN Q2HR PRN IV MODERATE TO SEVERE PAIN Last administered on 07/29/18at 09:08; Start 07/28/18 at 10:15 Pantoprazole Sodium (PROTONIX VIAL for IV PUSH) 40 mg 1X ONCE IVP ; Start 07/28/18 at 10:15; Stop 07/28/18 at 10:16; Status DC Pantoprazole Sodium (PROTONIX VIAL for IV PUSH) 40 mg DAILYAC IVP ; Start 07/29/18 at 07:30; Stop 07/29/18 at 07:30; Status DC Enoxaparin Sodium (Lovenox 40mg Syringe) 40 mg Q24H SQ ; Start 07/28/18 at 11:00 Multivitamins 10 ml/Thiamine HCl 100 mg/Folic Acid 1 mg/Sodium Chloride 1,011.2 ml @ 1,000.088 mls/hr DAILY IV Last administered on 07/29/18at 09:05; Start 07/28/18 at 11:00; Stop 08/02/18 at 10:59 Lorazepam (Ativan Inj) 1 mg PRN Q4HRS PRN IV ANXIETY / AGITATION Last administered on 07/28/18at 21:16; Start 07/28/18 at 10:15 Active Scripts Active Reported No Known Medications Prior To Admisstion (Info) Each 1 Each MC 1X Vitals/I & O Vital Sign - Last 24 Hours 07/28/18 07/28/18 07/28/18 07/28/18 09:57 10:00 10:15 10:30 Pulse 107 105 105 Resp 20 18 18 B/P (MAP) 129/80 (96) 129/81 (97) 129/79 (96) O2 Delivery Room Air Room Air 07/28/18 07/28/18 07/28/18 07/28/18 10:45 11:15 11:16 11:19 Pulse 107 105 105 Resp 18 17 B/P (MAP) 132/80 (97) 120/67 (84) 122/67 (85) O2 Delivery Room Air Room Air Room Air Room Air 07/28/18 07/28/18 07/28/18 07/28/18 13:54 15:00 18:11 19:00 Temp 98.6 98.0 98.6 98.0 Pulse 105 107 Resp 17 16 B/P (MAP) 129/84 (99) 148/101 (117) Pulse Ox 97 97 O2 Delivery Room Air Room Air Room Air Room Air 07/28/18 07/28/18 07/28/18 07/29/18 20:00 21:17 23:00 00:30 Temp 98.6 98.6 Pulse 95 Resp 18 B/P (MAP) 146/97 (113) Pulse Ox 96 O2 Delivery Room Air Room Air Room Air Room Air 07/29/18 07/29/18 07/29/18 07/29/18 02:30 03:00 05:53 06:25 Temp 98.3 98.3 Pulse 89 Resp 16 B/P (MAP) 155/99 (117) Pulse Ox 96 O2 Delivery Room Air Room Air Room Air Room Air 07/29/18 07/29/18 07:00 09:08 Temp 98.0 98.0 Pulse 101 Resp 16 B/P (MAP) 153/87 (109) Pulse Ox 97 O2 Delivery Room Air Room Air Intake and Output 07/28/18 07/28/18 07/29/18 15:00 23:00 07:00 Intake Total 900 ml 0 ml 0 ml Output Total 20 ml 1750 ml Balance 880 ml 0 ml -1750 ml ARAVIND ZEE MD Jul 29, 2018 09:23
[2018-07-29] MEDS ORDERED: TPN PER PHARMACY MC PRN (09:30)
--- NOTE | 2018-07-29 10:16 | PDOC ---
PROGRESS NOTES Subjective Subjective significant pain, wanting to eat Objective Objective Vital Signs Date Time Temp Pulse Resp B/P (MAP) Pulse Ox O2 Delivery O2 Flow Rate FiO2 07/29/18 09:08 Room Air 07/29/18 07:00 98.0 101 16 153/87 (109) 97 98.0 07/28/18 07:45 8 Intake and Output 07/29/18 07:00 Intake Total 900 ml Output Total 1770 ml Balance -870 ml Intake Oral 0 ml IV Total 900 ml Output Urine Total 1750 ml Estimated Blood Loss 20 ml Physical Exam Abdomen: Soft (tender at incision) Extremities: No clubbing, No cyanosis General: Alert Assessment Assessment Problems Medical Problems: (1) Abdominal pain Status: Acute (2) Perforated abdominal viscus Status: Acute Plan Plan of Care Supportive postop care, continue NG tube for now, significant output Comment Review of Relevant I have reviewed the following items steph (where applicable) has been applied. Labs Laboratory Tests Test 07/27/18 20:11 07/27/18 23:05 07/27/18 23:40 07/28/18 04:40 White Blood Count 3.8 x10^3/uL (4.0-11.0) 8.4 x10^3/uL (4.0-11.0) Red Blood Count 5.22 x10^6/uL (4.30-5.70) 5.08 x10^6/uL (4.30-5.70) Hemoglobin 14.8 g/dL (13.0-17.5) 14.4 g/dL (13.0-17.5) Hematocrit 43.6 % (39.0-53.0) 42.7 % (39.0-53.0) Mean Corpuscular Volume 84 fL (79-100) 84 fL (79-100) Mean Corpuscular Hemoglobin 28 pg (25-35) 29 pg (25-35) Mean Corpuscular Hemoglobin Concent 34 g/dL (31-37) 34 g/dL (31-37) Red Cell Distribution Width 14.0 % (11.5-14.5) 13.8 % (11.5-14.5) Platelet Count 153 x10^3/uL (140-400) 140 x10^3/uL (140-400) Neutrophils (%) (Auto) 46 % (31-73) 94 % (31-73) Lymphocytes (%) (Auto) 41 % (24-48) 4 % (24-48) Monocytes (%) (Auto) 8 % (0-9) 2 % (0-9) Eosinophils (%) (Auto) 2 % (0-3) 0 % (0-3) Basophils (%) (Auto) 3 % (0-3) 0 % (0-3) Neutrophils # (Auto) 1.8 x10^3uL (1.8-7.7) 7.8 x10^3uL (1.8-7.7) Lymphocytes # (Auto) 1.6 x10^3/uL (1.0-4.8) 0.4 x10^3/uL (1.0-4.8) Monocytes # (Auto) 0.3 x10^3/uL (0.0-1.1) 0.1 x10^3/uL (0.0-1.1) Eosinophils # (Auto) 0.1 x10^3/uL (0.0-0.7) 0.0 x10^3/uL (0.0-0.7) Basophils # (Auto) 0.1 x10^3/uL (0.0-0.2) 0.0 x10^3/uL (0.0-0.2) Activated Partial Thromboplast Time 28 SEC (24-38) Sodium Level 141 mmol/L (136-145) 140 mmol/L (136-145) Potassium Level 3.7 mmol/L (3.5-5.1) 4.1 mmol/L (3.5-5.1) Chloride Level 101 mmol/L (98-107) 103 mmol/L (98-107) Carbon Dioxide Level 35 mmol/L (21-32) 28 mmol/L (21-32) Anion Gap 5 (6-14) 9 (6-14) Blood Urea Nitrogen 11 mg/dL (8-26) 12 mg/dL (8-26) Creatinine 1.2 mg/dL (0.7-1.3) 1.0 mg/dL (0.7-1.3) Estimated GFR (Cockcroft-Gault) 74.7 92.2 BUN/Creatinine Ratio 9 (6-20) Glucose Level 108 mg/dL (70-99) 123 mg/dL (70-99) Calcium Level 9.2 mg/dL (8.5-10.1) 8.4 mg/dL (8.5-10.1) Total Bilirubin 0.8 mg/dL (0.2-1.0) Aspartate Amino Transf (AST/SGOT) 14 U/L (15-37) Alanine Aminotransferase (ALT/SGPT) 18 U/L (16-63) Alkaline Phosphatase 85 U/L (46-116) Troponin I Quantitative < 0.017 ng/mL (0.000-0.055) Total Protein 7.0 g/dL (6.4-8.2) Albumin 4.0 g/dL (3.4-5.0) Albumin/Globulin Ratio 1.3 (1.0-1.7) Lipase 66 U/L (73-393) Ethyl Alcohol Level < 10 mg/dL (0-10) Lactic Acid Level 0.8 mmol/L (0.4-2.0) 0.8 mmol/L (0.4-2.0) Urine Collection Type Unknown Urine Color Whitney Urine Clarity Clear Urine pH 7.0 Urine Specific [place] >=1.030 Urine Protein Negative mg/dL (NEG-TRACE) Urine Glucose (UA) Negative mg/dL (NEG) Urine Ketones (Stick) Trace mg/dL (NEG) Urine Blood Negative (NEG) Urine Nitrite Negative (NEG) Urine Bilirubin Small (NEG) Urine Urobilinogen Dipstick 2.0 mg/dL (0.2 mg/dL) Urine Leukocyte Esterase Small (NEG) Urine RBC 0 /HPF (0-2) Urine WBC 5-10 /HPF (0-4) Urine Squamous Epithelial Cells Few /LPF Urine Bacteria 0 /HPF (0-FEW) Urine Mucus Slight /LPF Urine Opiates Screen Neg (NEG) Urine Methadone Screen Neg (NEG) Urine Barbiturates Neg (NEG) Urine Phencyclidine Screen Neg (NEG) Urine Amphetamine/Methamphetamine Pos (NEG) Urine Benzodiazepines Screen Neg (NEG) Urine Cocaine Screen Pos (NEG) Urine Cannabinoids Screen Neg (NEG) Urine Ethyl Alcohol Neg (NEG) Segmented Neutrophils % 91 % (35-66) Lymphocytes % 7 % (24-48) Monocytes % 2 % (0-10) Platelet Estimate Adequate (ADEQUATE) Test 07/29/18 08:15 White Blood Count 6.7 x10^3/uL (4.0-11.0) Red Blood Count 5.05 x10^6/uL (4.30-5.70) Hemoglobin 14.5 g/dL (13.0-17.5) Hematocrit 42.2 % (39.0-53.0) Mean Corpuscular Volume 84 fL (79-100) Mean Corpuscular Hemoglobin 29 pg (25-35) Mean Corpuscular Hemoglobin Concent 34 g/dL (31-37) Red Cell Distribution Width 14.0 % (11.5-14.5) Platelet Count 131 x10^3/uL (140-400) Neutrophils (%) (Auto) 69 % (31-73) Lymphocytes (%) (Auto) 24 % (24-48) Monocytes (%) (Auto) 5 % (0-9) Eosinophils (%) (Auto) 1 % (0-3) Basophils (%) (Auto) 1 % (0-3) Neutrophils # (Auto) 4.6 x10^3uL (1.8-7.7) Lymphocytes # (Auto) 1.6 x10^3/uL (1.0-4.8) Monocytes # (Auto) 0.4 x10^3/uL (0.0-1.1) Eosinophils # (Auto) 0.0 x10^3/uL (0.0-0.7) Basophils # (Auto) 0.0 x10^3/uL (0.0-0.2) Sodium Level 140 mmol/L (136-145) Potassium Level 3.6 mmol/L (3.5-5.1) Chloride Level 103 mmol/L (98-107) Carbon Dioxide Level 29 mmol/L (21-32) Anion Gap 8 (6-14) Blood Urea Nitrogen 14 mg/dL (8-26) Creatinine 1.1 mg/dL (0.7-1.3) Estimated GFR (Cockcroft-Gault) 82.6 Glucose Level 77 mg/dL (70-99) Calcium Level 8.1 mg/dL (8.5-10.1) Laboratory Tests Test 07/29/18 08:15 White Blood Count 6.7 x10^3/uL (4.0-11.0) Red Blood Count 5.05 x10^6/uL (4.30-5.70) Hemoglobin 14.5 g/dL (13.0-17.5) Hematocrit 42.2 % (39.0-53.0) Mean Corpuscular Volume 84 fL (79-100) Mean Corpuscular Hemoglobin 29 pg (25-35) Mean Corpuscular Hemoglobin Concent 34 g/dL (31-37) Red Cell Distribution Width 14.0 % (11.5-14.5) Platelet Count 131 x10^3/uL (140-400) Neutrophils (%) (Auto) 69 % (31-73) Lymphocytes (%) (Auto) 24 % (24-48) Monocytes (%) (Auto) 5 % (0-9) Eosinophils (%) (Auto) 1 % (0-3) Basophils (%) (Auto) 1 % (0-3) Neutrophils # (Auto) 4.6 x10^3uL (1.8-7.7) Lymphocytes # (Auto) 1.6 x10^3/uL (1.0-4.8) Monocytes # (Auto) 0.4 x10^3/uL (0.0-1.1) Eosinophils # (Auto) 0.0 x10^3/uL (0.0-0.7) Basophils # (Auto) 0.0 x10^3/uL (0.0-0.2) Sodium Level 140 mmol/L (136-145) Potassium Level 3.6 mmol/L (3.5-5.1) Chloride Level 103 mmol/L (98-107) Carbon Dioxide Level 29 mmol/L (21-32) Anion Gap 8 (6-14) Blood Urea Nitrogen 14 mg/dL (8-26) Creatinine 1.1 mg/dL (0.7-1.3) Estimated GFR (Cockcroft-Gault) 82.6 Glucose Level 77 mg/dL (70-99) Calcium Level 8.1 mg/dL (8.5-10.1) Microbiology 07/28/18 Blood Culture - Preliminary, Resulted NO GROWTH AFTER 1 DAY Medications Current Medications Fentanyl Citrate (Fentanyl 2ml Vial) 50 mcg PRN Q15MIN PRN IV PAIN GREATER THAN 3/10 Last administered on 07/28/18at 08:30; Start 07/27/18 at 20:15; Stop 07/28/18 at 20:14; Status DC Sodium Chloride 1,000 ml @ 1,000 mls/hr Q1H IV Last administered on 07/27/18at 20:29; Start 07/27/18 at 20:06; Stop 07/27/18 at 21:05; Status DC Ondansetron HCl (Zofran) 4 mg 1X ONCE IV Last administered on 07/27/18at 20:29; Start 07/27/18 at 20:15; Stop 07/27/18 at 20:19; Status DC Iohexol (Omnipaque 300 Mg/ml) 75 ml 1X ONCE IV Last administered on 07/27/18at 21:05; Start 07/27/18 at 21:00; Stop 07/27/18 at 21:01; Status DC Meropenem 1 gm/ Sodium Chloride 100 ml @ 200 mls/hr Q8HRS IV Last administered on 07/29/18at 06:00; Start 07/27/18 at 22:30 Ondansetron HCl (Zofran) 4 mg PRN Q8HRS PRN IV NAUSEA/VOMITING 1ST CHOICE; Start 07/27/18 at 22:15; Stop 07/28/18 at 08:29; Status DC Fentanyl Citrate (Fentanyl 2ml Vial) 50 mcg PRN Q1HR PRN IV SEVERE PAIN Last administered on 07/28/18at 05:46; Start 07/27/18 at 22:15; Stop 07/28/18 at 08:30; Status DC Sodium Chloride 1,000 ml @ 125 mls/hr Q8H IV Last administered on 07/28/18at 18:15; Start 07/27/18 at 22:30; Stop 07/28/18 at 22:29; Status DC Methylprednisolone Sodium Succinate (SOLU-Medrol 125MG VIAL) 125 mg 1X ONCE IV Last administered on 07/27/18at 22:28; Start 07/27/18 at 23:00; Stop 07/27/18 at 23:01; Status DC Diphenhydramine HCl (Benadryl) 25 mg 1X ONCE IVP Last administered on 07/27/18at 22:29; Start 07/27/18 at 23:00; Stop 07/27/18 at 23:01; Status DC Cefazolin Sodium/ Dextrose 50 ml @ 100 mls/hr PREOP PRN PRN IV PREOP Last administered on 07/28/18at 06:05; Start 07/28/18 at 05:30; Stop 07/29/18 at 05:30; Status DC Metronidazole 100 ml @ 100 mls/hr PREOP PRN PRN IV PREOP Last administered on 07/28/18at 06:20; Start 07/28/18 at 05:30; Stop 07/29/18 at 05:30; Status DC Sevoflurane (Ultane) 90 ml STK-MED ONCE IH ; Start 07/28/18 at 05:34; Stop 07/28/18 at 05:35; Status DC Midazolam HCl (Versed) 2 mg STK-MED ONCE .ROUTE ; Start 07/28/18 at 05:35; Stop 07/28/18 at 05:36; Status DC Fentanyl Citrate (Fentanyl 2ml Vial) 100 mcg STK-MED ONCE .ROUTE ; Start 07/28/18 at 05:35; Stop 07/28/18 at 05:36; Status DC Rocuronium Cliff (Zemuron) 100 mg STK-MED ONCE .ROUTE ; Start 07/28/18 at 05:35; Stop 07/28/18 at 05:36; Status DC Glycopyrrolate (Robinul) 1 mg STK-MED ONCE .ROUTE ; Start 07/28/18 at 05:35; Stop 07/28/18 at 05:36; Status DC Neostigmine Methylsulfate (Neostigmine Methylsulfate) 5 mg STK-MED ONCE .ROUTE ; Start 07/28/18 at 05:36; Stop 07/28/18 at 05:37; Status DC Propofol 20 ml @ As Directed STK-MED ONCE IV ; Start 07/28/18 at 05:36; Stop 07/28/18 at 05:37; Status DC Lidocaine HCl (Lidocaine Pf 2% Vial) 5 ml STK-MED ONCE .ROUTE ; Start 07/28/18 at 05:36; Stop 07/28/18 at 05:37; Status DC Dexamethasone Sodium Phosphate (Decadron) 4 mg STK-MED ONCE .ROUTE ; Start 07/28/18 at 05:36; Stop 07/28/18 at 05:37; Status DC Ondansetron HCl (Zofran) 4 mg STK-MED ONCE .ROUTE ; Start 07/28/18 at 05:36; Stop 07/28/18 at 05:37; Status DC Succinylcholine Chloride (Anectine) 200 mg STK-MED ONCE .ROUTE ; Start 07/28/18 at 05:37; Stop 07/28/18 at 05:38; Status DC Fentanyl Citrate (Fentanyl 2ml Vial) 100 mcg STK-MED ONCE .ROUTE ; Start 07/28/18 at 06:50; Stop 07/28/18 at 06:51; Status DC Hydralazine HCl (Apresoline Inj) 20 mg STK-MED ONCE .ROUTE ; Start 07/28/18 at 07:11; Stop 07/28/18 at 07:12; Status DC Pantoprazole Sodium (PROTONIX VIAL for IV PUSH) 40 mg BID IVP Last administered on 07/29/18at 09:04; Start 07/28/18 at 09:00 Sevoflurane (Ultane) 60 ml STK-MED ONCE IH ; Start 07/28/18 at 07:22; Stop 07/28/18 at 07:23; Status DC Fentanyl Citrate (Fentanyl 2ml Vial) 100 mcg STK-MED ONCE .ROUTE ; Start 07/28/18 at 08:00; Stop 07/28/18 at 08:01; Status DC Ondansetron HCl (Zofran) 4 mg PRN Q6HRS PRN IV NAUSEA/VOMITING 1ST CHOICE; Start 07/28/18 at 08:30 Morphine Sulfate (Morphine Sulfate) 2 mg PRN Q2HR PRN IV PAIN Last administered on 07/28/18at 09:14; Start 07/28/18 at 08:30; Stop 07/28/18 at 10:05; Status DC Ringer's Solution 1,000 ml @ 75 mls/hr [id number] IV Last administered on 07/28/18at 19:10; Start 07/28/18 at 05:50 Morphine Sulfate (Morphine Sulfate) 4 mg PRN Q2HR PRN IV MODERATE TO SEVERE PAIN Last administered on 07/29/18at 09:08; Start 07/28/18 at 10:15 Pantoprazole Sodium (PROTONIX VIAL for IV PUSH) 40 mg 1X ONCE IVP ; Start 07/28/18 at 10:15; Stop 07/28/18 at 10:16; Status DC Pantoprazole Sodium (PROTONIX VIAL for IV PUSH) 40 mg DAILYAC IVP ; Start 07/29/18 at 07:30; Stop 07/29/18 at 07:30; Status DC Enoxaparin Sodium (Lovenox 40mg Syringe) 40 mg Q24H SQ ; Start 07/28/18 at 11:00 Multivitamins 10 ml/Thiamine HCl 100 mg/Folic Acid 1 mg/Sodium Chloride 1,011.2 ml @ 1,000.088 mls/hr DAILY IV Last administered on 07/29/18at 09:05; Start 07/28/18 at 11:00; Stop 08/02/18 at 10:59 Lorazepam (Ativan Inj) 1 mg PRN Q4HRS PRN IV ANXIETY / AGITATION Last adm inistered on 07/28/18at 21:16; Start 07/28/18 at 10:15 Info (Tpn Per Pharmacy) 1 each PRN DAILY PRN MC SEE COMMENTS; Start 07/29/18 at 09:30 Active Scripts Active Reported No Known Medications Prior To Admisstion (Info) Each 1 Each MC 1X Vitals/I & O Vital Sign - Last 24 Hours 07/28/18 07/28/18 07/28/18 07/28/18 10:30 10:45 11:15 11:16 Pulse 105 107 105 105 Resp 18 18 17 B/P (MAP) 129/79 (96) 132/80 (97) 120/67 (84) 122/67 (85) O2 Delivery Room Air Room Air Room Air Room Air 07/28/18 07/28/18 07/28/18 07/28/18 11:19 13:54 15:00 18:11 Temp 98.6 98.6 Pulse 105 Resp 17 B/P (MAP) 129/84 (99) Pulse Ox 97 O2 Delivery Room Air Room Air Room Air Room Air 07/28/18 07/28/18 07/28/18 07/28/18 19:00 20:00 21:17 23:00 Temp 98.0 98.6 98.0 98.6 Pulse 107 95 Resp 16 18 B/P (MAP) 148/101 (117) 146/97 (113) Pulse Ox 97 96 O2 Delivery Room Air Room Air Room Air Room Air 07/29/18 07/29/18 07/29/18 07/29/18 00:30 02:30 03:00 05:53 Temp 98.3 98.3 Pulse 89 Resp 16 B/P (MAP) 155/99 (117) Pulse Ox 96 O2 Delivery Room Air Room Air Room Air Room Air 07/29/18 07/29/18 07/29/18 06:25 07:00 09:08 Temp 98.0 98.0 Pulse 101 Resp 16 B/P (MAP) 153/87 (109) Pulse Ox 97 O2 Delivery Room Air Room Air Room Air Intake and Output 07/28/18 07/28/18 07/29/18 15:00 23:00 07:00 Intake Total 900 ml 0 ml 0 ml Output Total 20 ml 1750 ml Balance 880 ml 0 ml -1750 ml RADHA GRIER MD Jul 29, 2018 10:16
[2018-07-29 11:00] VITALS: BP 149/95
[2018-07-29] MEDS: ENOXAPARIN 40 MG/0.4 ML SYRINGE. SQ SCH (11:00)
--- NOTE | 2018-07-29 12:52 | NUR ---
Pharmacy TPN Dosing Note S: MARIA LARKIN is a 58 year old M Currently receiving Central Continuous TPN started 07/29/18 B:Pertinent PMH: BOWEL REST, POST-OP PERFORATED VISCUS, Current diet: NPO LABS: Sodium: 140 Potassium: 3.6 Chloride: 103 Calcium: 8.1 Corrected Calcium: 8.10 Magnesium: - CO2: 29 SCr: 1.1 Glucose: 77-123 Albumin: 4.0 AST: 14 ALT: 18 TPN FORMULA: TPN TYPE: Central Continuous AMINO ACIDS: 60 gm DEXTROSE: 195 gm LIPIDS: 20 gm SODIUM CHLORIDE: 90 mEq SODIUM ACETATE: - mEq SODIUM PHOSPHATE: - mmol POTASSIUM CHLORIDE: 50 mEq POTASSIUM ACETATE: - mEq POTASSIUM PHOSPHATE: 13.6 mmol MAGNESIUM: 10 mEq CALCIUM: 10 mEq INSULIN: - units MULTIPLE VITAMIN: 10 ml TRACE ELEMENTS: 1ml ml(s) TPN PLAN: 07/29 START STANDARD TPN, LYTES ORDERED FOR 07/30 R: Begin Standard TPN 07/30 @ 2200 pending PICC line placement. If PICC not placed today, will start Procalamine. Will monitor electrolytes, glucose, and tolerance to TPN. KEANU DE SANTIAGO [facility], 07/29/18 [id number]
--- NOTE | 2018-07-29 13:38 | NUR ---
Allergies and reactions INR 14 BUN 1.1 Cr 131 Platelets Order Verified Consent signed Previous PICC placement Past Medical/Surgical history and current diagnosis reviewed Problems breathing lying flat Pulmonary Embolism (PE) PICC placement indication Caustic medication class drug usage, Poor peripheral intravenous access Total Parenteral Nutrition (TPN) Andrea Adams name of PICC Nurse
--- NOTE | 2018-07-29 13:40 | NUR ---
Client refused to have PICC line placed after receiving education about the line and what the line will be used for. The client stated that he did not want a line in his arm and would like to have a doctor place a line in his neck. Informed nurse of the client's request.
--- NOTE | 2018-07-29 14:59 | NUR ---
Lovenox: Held 1100 Lovenox as pt was supposed to have a PICC line placed today. Pt refused PICC line when PICC nurse was at bedside. Sent message to Dr Borjas asking if she wants his Lovenox held or given as the plan is to have a central line placed tomorrow. Addendum: 07/29/18 at 1503 by TRENTON BRAVO RN RN Per Dr Borjas, hold Lovenox dose today.
[2018-07-29 15:00] VITALS: BP 153/97
[2018-07-29] MEDS ORDERED: NICOTINE 21MG PATCH. TD PRN (15:15)
[2018-07-29] MEDS: IV RINGERS,LACTATED 1000ML 1,000 ML IV SCH ×2 (17:37→21:48)
[2018-07-29 19:00] VITALS: BP 167/88
--- NOTE | 2018-07-29 21:38 | NUR ---
Pharmacy TPN Dosing Note S: MARIA LARKIN is a 58 year old M had Central Continuous TPN ordered for 07/29/18 B:Pertinent PMH: BOWEL REST, POST-OP PERFORATED VISCUS Current diet: NPO TPN PLAN: 07/29 patient refused PICC line placement R: Change TPN to PROCALAMINE for peripheral line infusion. KEANU DE SATNIAGO, [facility], 07/29/18 [id number]
[2018-07-29] MEDS: AMINO AC 3%/ELECTROLYTE/GLYCER 1,000 ML IV SCH (21:49)
[2018-07-29] MEDS ORDERED: TOTAL PARENTERAL NUTRITION 1,424.9987 ML, AMINO ACID 15% 60 GM, DEXTROSE 70 % IN WATER ... IV SCH ×10 (22:00)
[2018-07-29 23:00] VITALS: BP 159/100
[2018-07-30] MEDS: MORPHINE SULFATE 4 MG/ML VIAL. IV PRN ×6 (00:13→20:46)
[2018-07-30 03:53] VITALS: BP 160/103
[2018-07-30 05:59] LABS: CALCIUM 8.6 mg/dL (8.5-10.1); GFR 92.2; MAGNESIUM 2.2 mg/dL (1.8-2.4); POTASSIUM 3.9 mmol/L (3.5-5.1)
[2018-07-30] MEDS: MEROPENEM 1 GM in IV NORMAL SALINE 100ML 100 ML IV SCH ×3 (06:00→22:00)
[2018-07-30 06:48] LABS: PROTHROMBIN TIME PATIENT 12.7 SEC (11.7-14.0)
[2018-07-30 07:00] VITALS: BP 161/104
[2018-07-30] MEDS: PANTOPRAZOLE IV PUSH 40 MG VIAL. IVP SCH ×2 (08:16→20:45)
[2018-07-30] MEDS: MULTIVIT INFUSN,ADULT 4,VIT K 10 ML, THIAMINE INJ 100 MG, FOLIC ACID INJ 1 MG in IV NOR... IV SCH (08:17)
--- NOTE | 2018-07-30 10:05 | PDOC ---
PROGRESS NOTES Chief Complaint Chief Complaint s/p Exploratory laparotomy, primary repair of perforated pyloric channel ulcer with omental patch - alcoholism Positive amphetamine and cocaine use-UDS in the system History of perforated appendix distant past History of Present Illness History of Present Illness Postop day #3 minimal drainage NG tube-patient relays to me that NG tube might be DC soon Okayed by GS to have ice chips Patient is becoming better because he is now becoming nasty, also showing signs of hunger Plan: ice chips NG tube per GS, diet per GS No need for TPN or PICC ProcalAmine started Vitals Vitals Vital Signs Date Time Temp Pulse Resp B/P (MAP) Pulse Ox O2 Delivery O2 Flow Rate FiO2 07/30/18 08:43 97 Room Air 8.0 07/30/18 07:00 98.0 100 18 161/104 (123) 98.0 Physical Exam General: Alert Heart: Regular rate, Normal S1, Normal S2 Lungs: Clear Abdomen: Soft (tender at incision) Extremities: No clubbing, No cyanosis Skin: No rashes, No breakdown, No significant lesion Labs LABS Laboratory Tests Test 07/30/18 05:17 Prothrombin Time 12.7 SEC (11.7-14.0) Prothromb Time International Ratio 1.0 (0.8-1.1) Sodium Level 139 mmol/L (136-145) Potassium Level 3.9 mmol/L (3.5-5.1) Chloride Level 101 mmol/L (98-107) Carbon Dioxide Level 30 mmol/L (21-32) Anion Gap 8 (6-14) Blood Urea Nitrogen 14 mg/dL (8-26) Creatinine 1.0 mg/dL (0.7-1.3) Estimated GFR (Cockcroft-Gault) 92.2 Glucose Level 89 mg/dL (70-99) Calcium Level 8.6 mg/dL (8.5-10.1) Phosphorus Level 3.0 mg/dL (2.6-4.7) Magnesium Level 2.2 mg/dL (1.8-2.4) Triglycerides Level 86 mg/dL (0-150) Review of Systems Review of Systems Hungry, minimal postop abdominal pain otherwise the rest of ROS 14 point negative Assessment and Plan Assessmemt and Plan Problems Medical Problems: (1) Abdominal pain Status: Acute (2) Perforated abdominal viscus Status: Acute Comment Review of Relevant I have reviewed the following items steph (where applicable) has been applied. Labs Laboratory Tests Test 07/29/18 08:15 07/30/18 05:17 White Blood Count 6.7 x10^3/uL (4.0-11.0) Red Blood Count 5.05 x10^6/uL (4.30-5.70) Hemoglobin 14.5 g/dL (13.0-17.5) Hematocrit 42.2 % (39.0-53.0) Mean Corpuscular Volume 84 fL (79-100) Mean Corpuscular Hemoglobin 29 pg (25-35) Mean Corpuscular Hemoglobin Concent 34 g/dL (31-37) Red Cell Distribution Width 14.0 % (11.5-14.5) Platelet Count 131 x10^3/uL (140-400) Neutrophils (%) (Auto) 69 % (31-73) Lymphocytes (%) (Auto) 24 % (24-48) Monocytes (%) (Auto) 5 % (0-9) Eosinophils (%) (Auto) 1 % (0-3) Basophils (%) (Auto) 1 % (0-3) Neutrophils # (Auto) 4.6 x10^3uL (1.8-7.7) Lymphocytes # (Auto) 1.6 x10^3/uL (1.0-4.8) Monocytes # (Auto) 0.4 x10^3/uL (0.0-1.1) Eosinophils # (Auto) 0.0 x10^3/uL (0.0-0.7) Basophils # (Auto) 0.0 x10^3/uL (0.0-0.2) Sodium Level 140 mmol/L (136-145) 139 mmol/L (136-145) Potassium Level 3.6 mmol/L (3.5-5.1) 3.9 mmol/L (3.5-5.1) Chloride Level 103 mmol/L (98-107) 101 mmol/L (98-107) Carbon Dioxide Level 29 mmol/L (21-32) 30 mmol/L (21-32) Anion Gap 8 (6-14) 8 (6-14) Blood Urea Nitrogen 14 mg/dL (8-26) 14 mg/dL (8-26) Creatinine 1.1 mg/dL (0.7-1.3) 1.0 mg/dL (0.7-1.3) Estimated GFR (Cockcroft-Gault) 82.6 92.2 Glucose Level 77 mg/dL (70-99) 89 mg/dL (70-99) Calcium Level 8.1 mg/dL (8.5-10.1) 8.6 mg/dL (8.5-10.1) Prothrombin Time 12.7 SEC (11.7-14.0) Prothromb Time International Ratio 1.0 (0.8-1.1) Phosphorus Level 3.0 mg/dL (2.6-4.7) Magnesium Level 2.2 mg/dL (1.8-2.4) Triglycerides Level 86 mg/dL (0-150) Laboratory Tests Test 07/30/18 05:17 Prothrombin Time 12.7 SEC (11.7-14.0) Prothromb Time International Ratio 1.0 (0.8-1.1) Sodium Level 139 mmol/L (136-145) Potassium Level 3.9 mmol/L (3.5-5.1) Chloride Level 101 mmol/L (98-107) Carbon Dioxide Level 30 mmol/L (21-32) Anion Gap 8 (6-14) Blood Urea Nitrogen 14 mg/dL (8-26) Creatinine 1.0 mg/dL (0.7-1.3) Estimated GFR (Cockcroft-Gault) 92.2 Glucose Level 89 mg/dL (70-99) Calcium Level 8.6 mg/dL (8.5-10.1) Phosphorus Level 3.0 mg/dL (2.6-4.7) Magnesium Level 2.2 mg/dL (1.8-2.4) Triglycerides Level 86 mg/dL (0-150) Microbiology 07/28/18 Blood Culture - Preliminary, Resulted NO GROWTH AFTER 2 DAYS 07/28/18 Urine Culture - Final, Complete 07/28/18 Urine Culture Result 1 (REE) - Final, Complete Medications Current Medications Fentanyl Citrate (Fentanyl 2ml Vial) 50 mcg PRN Q15MIN PRN IV PAIN GREATER THAN 3/10 Last administered on 07/28/18at 08:30; Start 07/27/18 at 20:15; Stop 07/28/18 at 20:14; Status DC Sodium Chloride 1,000 ml @ 1,000 mls/hr Q1H IV Last administered on 07/27/18at 20:29; Start 07/27/18 at 20:06; Stop 07/27/18 at 21:05; Status DC Ondansetron HCl (Zofran) 4 mg 1X ONCE IV Last administered on 07/27/18at 20:29; Start 07/27/18 at 20:15; Stop 07/27/18 at 20:19; Status DC Iohexol (Omnipaque 300 Mg/ml) 75 ml 1X ONCE IV Last administered on 07/27/18at 21:05; Start 07/27/18 at 21:00; Stop 07/27/18 at 21:01; Status DC Meropenem 1 gm/ Sodium Chloride 100 ml @ 200 mls/hr Q8HRS IV Last administered on 07/30/18at 06:00; Start 07/27/18 at 22:30 Ondansetron HCl (Zofran) 4 mg PRN Q8HRS PRN IV NAUSEA/VOMITING 1ST CHOICE; Start 07/27/18 at 22:15; Stop 07/28/18 at 08:29; Status DC Fentanyl Citrate (Fentanyl 2ml Vial) 50 mcg PRN Q1HR PRN IV SEVERE PAIN Last administered on 07/28/18at 05:46; Start 07/27/18 at 22:15; Stop 07/28/18 at 08:30; Status DC Sodium Chloride 1,000 ml @ 125 mls/hr Q8H IV Last administered on 07/28/18at 18:15; Start 07/27/18 at 22:30; Stop 07/28/18 at 22:29; Status DC Methylprednisolone Sodium Succinate (SOLU-Medrol 125MG VIAL) 125 mg 1X ONCE IV Last administered on 07/27/18at 22:28; Start 07/27/18 at 23:00; Stop 07/27/18 at 23:01; Status DC Diphenhydramine HCl (Benadryl) 25 mg 1X ONCE IVP Last administered on 07/27/18at 22:29; Start 07/27/18 at 23:00; Stop 07/27/18 at 23:01; Status DC Cefazolin Sodium/ Dextrose 50 ml @ 100 mls/hr PREOP PRN PRN IV PREOP Last administered on 07/28/18at 06:05; Start 07/28/18 at 05:30; Stop 07/29/18 at 05:30; Status DC Metronidazole 100 ml @ 100 mls/hr PREOP PRN PRN IV PREOP Last administered on 07/28/18at 06:20; Start 07/28/18 at 05:30; Stop 07/29/18 at 05:30; Status DC Sevoflurane (Ultane) 90 ml STK-MED ONCE IH ; Start 07/28/18 at 05:34; Stop 07/28/18 at 05:35; Status DC Midazolam HCl (Versed) 2 mg STK-MED ONCE .ROUTE ; Start 07/28/18 at 05:35; Stop 07/28/18 at 05:36; Status DC Fentanyl Citrate (Fentanyl 2ml Vial) 100 mcg STK-MED ONCE .ROUTE ; Start 07/28/18 at 05:35; Stop 07/28/18 at 05:36; Status DC Rocuronium [place] (Zemuron) 100 mg STK-MED ONCE .ROUTE ; Start 07/28/18 at 05:35; Stop 07/28/18 at 05:36; Status DC Glycopyrrolate (Robinul) 1 mg STK-MED ONCE .ROUTE ; Start 07/28/18 at 05:35; Stop 07/28/18 at 05:36; Status DC Neostigmine Methylsulfate (Neostigmine Methylsulfate) 5 mg STK-MED ONCE .ROUTE ; Start 07/28/18 at 05:36; Stop 07/28/18 at 05:37; Status DC Propofol 20 ml @ As Directed STK-MED ONCE IV ; Start 07/28/18 at 05:36; Stop 07/28/18 at 05:37; Status DC Lidocaine HCl (Lidocaine Pf 2% Vial) 5 ml STK-MED ONCE .ROUTE ; Start 07/28/18 at 05:36; Stop 07/28/18 at 05:37; Status DC Dexamethasone Sodium Phosphate (Decadron) 4 mg STK-MED ONCE .ROUTE ; Start 07/28/18 at 05:36; Stop 07/28/18 at 05:37; Status DC Ondansetron HCl (Zofran) 4 mg STK-MED ONCE .ROUTE ; Start 07/28/18 at 05:36; Stop 07/28/18 at 05:37; Status DC Succinylcholine Chloride (Anectine) 200 mg STK-MED ONCE .ROUTE ; Start 07/28/18 at 05:37; Stop 07/28/18 at 05:38; Status DC Fentanyl Citrate (Fentanyl 2ml Vial) 100 mcg STK-MED ONCE .ROUTE ; Start 07/28/18 at 06:50; Stop 07/28/18 at 06:51; Status DC Hydralazine HCl (Apresoline Inj) 20 mg STK-MED ONCE .ROUTE ; Start 07/28/18 at 07:11; Stop 07/28/18 at 07:12; Status DC Pantoprazole Sodium (PROTONIX VIAL for IV PUSH) 40 mg BID IVP Last administered on 07/30/18at 08:16; Start 07/28/18 at 09:00 Sevoflurane (Ultane) 60 ml STK-MED ONCE IH ; Start 07/28/18 at 07:22; Stop 07/28/18 at 07:23; Status DC Fentanyl Citrate (Fentanyl 2ml Vial) 100 mcg STK-MED ONCE .ROUTE ; Start 07/28 at 08:00; Stop 07/28/18 at 08:01; Status DC Ondansetron HCl (Zofran) 4 mg PRN Q6HRS PRN IV NAUSEA/VOMITING 1ST CHOICE; St art 07/28/18 at 08:30 Morphine Sulfate (Morphine Sulfate) 2 mg PRN Q2HR PRN IV PAIN Last administered on 07/28/18at 09:14; Start 07/28/18 at 08:30; Stop 07/28/18 at 10:05; Status DC Ringer's Solution 1,000 ml @ 75 mls/hr [id number] IV Last administered on at 21:48; Start 07/28/18 at 05:50; Stop 07/30/18 at 08:45; Status DC Morphine Sulfate (Morphine Sulfate) 4 mg PRN Q2HR PRN IV MODERATE TO SEVERE PAIN Last administered on 07/30/18at 08:13; Start 07/28/18 at 10:15 Pantoprazole Sodium (PROTONIX VIAL for IV PUSH) 40 mg 1X ONCE IVP ; Start 07/28/18 at 10:15; Stop 07/28/18 at 10:16; Status DC Pantoprazole Sodium (PROTONIX VIAL for IV PUSH) 40 mg DAILYAC IVP ; Start 07/29/18 at 07:30; Stop 07/29/18 at 07:30; Status DC Enoxaparin Sodium (Lovenox 40mg Syringe) 40 mg Q24H SQ ; Start 07/28/18 at 11:00 Multivitamins 10 ml/Thiamine HCl 100 mg/Folic Acid 1 mg/Sodium Chloride 1,011.2 ml @ 1,000.088 mls/hr DAILY IV Last administered on 07/30/18at 08:17; Start 07/28/18 at 11:00; Stop 08/02/18 at 10:59 Lorazepam (Ativan Inj) 1 mg PRN Q4HRS PRN IV ANXIETY / AGITATION Last administered on 07/28/18at 21:16; Start 07/28/18 at 10:15 Info (Tpn Per Pharmacy) 1 each PRN DAILY PRN MC SEE COMMENTS Last administered on 07/29/18at 12:51; Start 07/29/18 at 09:30; Stop 07/29/18 at 21:38; Status DC Sodium Chloride 90 meq/Potassium Chloride 50 meq/ Potassium Phosphate 13.6 mmol/Magnesium Sulfate 10 meq/ Calcium Gluconate 10 meq/ Multivitamins 10 ml/Chromium/ Copper/Manganese/ Seleni/Zn 1 ml/ Total Parenteral Nutrition/Amino Acids/Dextrose/ Fat Emulsion Intravenous 1,512 ml @ 63 mls/hr TPN CONT IV ; Start 07/29/18 at 22:00; Stop 07/29/18 at 22:00; Status DC Nicotine (Nicoderm Cq 21mg) 1 patch PRN DAILY PRN TD SMOKING CESSATION; Start 07/29/18 at 15:15 Amino Acids/ Glycerin/ Electrolytes 1,000 ml @ 80 mls/hr [id number] IV Last administered on 07/29/18at 21:49; Start 07/29/18 at 22:00 Active Scripts Active Reported No Known Medications Prior To Admisstion (Info) Each 1 Each MC 1X Vitals/I & O Vital Sign - Last 24 Hours 07/29/18 07/29/18 07/29/18 07/29/18 11:00 14:08 15:00 18:55 Temp 97.9 98.0 97.9 98.0 Pulse 104 108 Resp 16 16 B/P (MAP) 149/95 (113) 153/97 (115) Pulse Ox 97 95 O2 Delivery Room Air Room Air Room Air Room Air 07/29/18 07/29/18 07/29/18 07/30/18 19:00 19:45 23:00 00:13 Temp 99.2 98.7 99.2 98.7 Pulse 103 102 Resp 20 20 B/P (MAP) 167/88 (114) 159/100 (119) Pulse Ox 96 96 O2 Delivery Room Air Room Air Room Air Room Air 07/30/18 07/30/18 07/30/18 07/30/18 03:51 03:53 07:00 08:13 Temp 98.6 98.0 98.6 98.0 Pulse 94 100 Resp 20 18 B/P (MAP) 160/103 (122) 161/104 (123) Pulse Ox 97 97 97 O2 Delivery Room Air Room Air Room Air Room Air O2 Flow Rate 8.0 07/30/18 08:43 Pulse Ox 97 O2 Delivery Room Air O2 Flow Rate 8.0 Intake and Output 07/29/18 07/29/18 07/30/18 15:00 23:00 07:00 Output Total 1700 ml 1350 ml 2550 ml Balance -1700 ml -1350 ml -2550 ml ARAVIND ZEE MD Jul 30, 2018 10:05
[2018-07-30] MEDS: AMINO AC 3%/ELECTROLYTE/GLYCER 1,000 ML IV SCH ×2 (10:54→23:00)
[2018-07-30 11:00] VITALS: BP 154/101
[2018-07-30] MEDS: ENOXAPARIN 40 MG/0.4 ML SYRINGE. SQ SCH (11:06)
[2018-07-30] MEDS ORDERED: ENALAPRILAT 1.25 MG/ML VIAL. IVP PRN (11:30)
[2018-07-30] MEDS ORDERED: METOPROLOL TARTRATE 5 MG/5 ML VIAL. IVP PRN (11:30)
--- NOTE | 2018-07-30 12:32 | PDOC ---
PROGRESS NOTES Subjective Subjective some pain, but states its improving Objective Objective Vital Signs Date Time Temp Pulse Resp B/P (MAP) Pulse Ox O2 Delivery O2 Flow Rate FiO2 07/30/18 11:00 98.5 94 16 154/101 (118) 96 Room Air 98.5 07/30/18 08:43 8.0 l Intake and Output 07/30/18 07:00 Output Total 5600 ml Balance -5600 ml Output Urine Total 5600 ml Physical Exam Abdomen: Soft (tender with palpation) Assessment Assessment Problems Medical Problems: (1) Abdominal pain Status: Acute (2) Perforated abdominal viscus Status: Acute Plan Plan of Care DC NG tube, ice chips, poss clears tomorrow Comment Review of Relevant I have reviewed the following items steph (where applicable) has been applied. Labs Laboratory Tests Test 07/29/18 08:15 07/30/18 05:17 White Blood Count 6.7 x10^3/uL (4.0-11.0) Red Blood Count 5.05 x10^6/uL (4.30-5.70) Hemoglobin 14.5 g/dL (13.0-17.5) Hematocrit 42.2 % (39.0-53.0) Mean Corpuscular Volume 84 fL (79-100) Mean Corpuscular Hemoglobin 29 pg (25-35) Mean Corpuscular Hemoglobin Concent 34 g/dL (31-37) Red Cell Distribution Width 14.0 % (11.5-14.5) Platelet Count 131 x10^3/uL (140-400) Neutrophils (%) (Auto) 69 % (31-73) Lymphocytes (%) (Auto) 24 % (24-48) Monocytes (%) (Auto) 5 % (0-9) Eosinophils (%) (Auto) 1 % (0-3) Basophils (%) (Auto) 1 % (0-3) Neutrophils # (Auto) 4.6 x10^3uL (1.8-7.7) Lymphocytes # (Auto) 1.6 x10^3/uL (1.0-4.8) Monocytes # (Auto) 0.4 x10^3/uL (0.0-1.1) Eosinophils # (Auto) 0.0 x10^3/uL (0.0-0.7) Basophils # (Auto) 0.0 x10^3/uL (0.0-0.2) Sodium Level 140 mmol/L (136-145) 139 mmol/L (136-145) Potassium Level 3.6 mmol/L (3.5-5.1) 3.9 mmol/L (3.5-5.1) Chloride Level 103 mmol/L (98-107) 101 mmol/L (98-107) Carbon Dioxide Level 29 mmol/L (21-32) 30 mmol/L (21-32) Anion Gap 8 (6-14) 8 (6-14) Blood Urea Nitrogen 14 mg/dL (8-26) 14 mg/dL (8-26) Creatinine 1.1 mg/dL (0.7-1.3) 1.0 mg/dL (0.7-1.3) Estimated GFR (Cockcroft-Gault) 82.6 92.2 Glucose Level 77 mg/dL (70-99) 89 mg/dL (70-99) Calcium Level 8.1 mg/dL (8.5-10.1) 8.6 mg/dL (8.5-10.1) Prothrombin Time 12.7 SEC (11.7-14.0) Prothromb Time International Ratio 1.0 (0.8-1.1) Phosphorus Level 3.0 mg/dL (2.6-4.7) Magnesium Level 2.2 mg/dL (1.8-2.4) Triglycerides Level 86 mg/dL (0-150) Laboratory Tests Test 07/30/18 05:17 Prothrombin Time 12.7 SEC (11.7-14.0) Prothromb Time International Ratio 1.0 (0.8-1.1) Sodium Level 139 mmol/L (136-145) Potassium Level 3.9 mmol/L (3.5-5.1) Chloride Level 101 mmol/L (98-107) Carbon Dioxide Level 30 mmol/L (21-32) Anion Gap 8 (6-14) Blood Urea Nitrogen 14 mg/dL (8-26) Creatinine 1.0 mg/dL (0.7-1.3) Estimated GFR (Cockcroft-Gault) 92.2 Glucose Level 89 mg/dL (70-99) Calcium Level 8.6 mg/dL (8.5-10.1) Phosphorus Level 3.0 mg/dL (2.6-4.7) Magnesium Level 2.2 mg/dL (1.8-2.4) Triglycerides Level 86 mg/dL (0-150) Microbiology 07/28/18 Blood Culture - Preliminary, Resulted NO GROWTH AFTER 2 DAYS 07/28/18 Urine Culture - Final, Complete 07/28/18 Urine Culture Result 1 (REE) - Final, Complete Medications Current Medications Fentanyl Citrate (Fentanyl 2ml Vial) 50 mcg PRN Q15MIN PRN IV PAIN GREATER THAN 3/10 Last administered on 07/28/18at 08:30; Start 07/27/18 at 20:15; Stop 07/28/18 at 20:14; Status DC Sodium Chloride 1,000 ml @ 1,000 mls/hr Q1H IV Last administered on 07/27/18at 20:29; Start 07/27/18 at 20:06; Stop 07/27/18 at 21:05; Status DC Ondansetron HCl (Zofran) 4 mg 1X ONCE IV Last administered on 07/27/18at 20:29; Start 07/27/18 at 20:15; Stop 07/27/18 at 20:19; Status DC Iohexol (Omnipaque 300 Mg/ml) 75 ml 1X ONCE IV Last administered on 07/27/18at 21:05; Start 07/27/18 at 21:00; Stop 07/27/18 at 21:01; Status DC Meropenem 1 gm/ Sodium Chloride 100 ml @ 200 mls/hr Q8HRS IV Last administered on 07/30/18at 06:00; Start 07/27/18 at 22:30 Ondansetron HCl (Zofran) 4 mg PRN Q8HRS PRN IV NAUSEA/VOMITING 1ST CHOICE; Start 07/27/18 at 22:15; Stop 07/28/18 at 08:29; Status DC Fentanyl Citrate (Fentanyl 2ml Vial) 50 mcg PRN Q1HR PRN IV SEVERE PAIN Last administered on 07/28/18at 05:46; Start 07/27/18 at 22:15; Stop 07/28/18 at 08:30; Status DC Sodium Chloride 1,000 ml @ 125 mls/hr Q8H IV Last administered on 07/28/18at 18:15; Start 07/27/18 at 22:30; Stop 07/28/18 at 22:29; Status DC Methylprednisolone Sodium Succinate (SOLU-Medrol 125MG VIAL) 125 mg 1X ONCE IV Last administered on 07/27/18at 22:28; Start 07/27/18 at 23:00; Stop 07/27/18 at 23:01; Status DC Diphenhydramine HCl (Benadryl) 25 mg 1X ONCE IVP Last administered on 07/27/18at 22:29; Start 07/27/18 at 23:00; Stop 07/27/18 at 23:01; Status DC Cefazolin Sodium/ Dextrose 50 ml @ 100 mls/hr PREOP PRN PRN IV PREOP Last administered on 07/28/18at 06:05; Start 07/28/18 at 05:30; Stop 07/29/18 at 05:30; Status DC Metronidazole 100 ml @ 100 mls/hr PREOP PRN PRN IV PREOP Last administered on 07/28/18at 06:20; Start 07/28/18 at 05:30; Stop 07/29/18 at 05:30; Status DC Sevoflurane (Ultane) 90 ml STK-MED ONCE IH ; Start 07/28/18 at 05:34; Stop 07/28/18 at 05:35; Status DC Midazolam HCl (Versed) 2 mg STK-MED ONCE .ROUTE ; Start 07/28/18 at 05:35; Stop 07/28/18 at 05:36; Status DC Fentanyl Citrate (Fentanyl 2ml Vial) 100 mcg STK-MED ONCE .ROUTE ; Start 07/28/18 at 05:35; Stop 07/28/18 at 05:36; Status DC Rocuronium [place] (Zemuron) 100 mg STK-MED ONCE .ROUTE ; Start 07/28/18 at 05:35; Stop 07/28/18 at 05:36; Status DC Glycopyrrolate (Robinul) 1 mg STK-MED ONCE .ROUTE ; Start 07/28/18 at 05:35; Stop 07/28/18 at 05:36; Status DC Neostigmine Methylsulfate (Neostigmine Methylsulfate) 5 mg STK-MED ONCE .ROUTE ; Start 07/28/18 at 05:36; Stop 07/28/18 at 05:37; Status DC Propofol 20 ml @ As Directed STK-MED ONCE IV ; Start 07/28/18 at 05:36; Stop 07/28/18 at 05:37; Status DC Lidocaine HCl (Lidocaine Pf 2% Vial) 5 ml STK-MED ONCE .ROUTE ; Start 07/28/18 at 05:36; Stop 07/28/18 at 05:37; Status DC Dexamethasone Sodium Phosphate (Decadron) 4 mg STK-MED ONCE .ROUTE ; Start 07/28/18 at 05:36; Stop 07/28/18 at 05:37; Status DC Ondansetron HCl (Zofran) 4 mg STK-MED ONCE .ROUTE ; Start 07/28/18 at 05:36; Stop 07/28/18 at 05:37; Status DC Succinylcholine Chloride (Anectine) 200 mg STK-MED ONCE .ROUTE ; Start 07/28/18 at 05:37; Stop 07/28/18 at 05:38; Status DC Fentanyl Citrate (Fentanyl 2ml Vial) 100 mcg STK-MED ONCE .ROUTE ; Start 07/28/18 at 06:50; Stop 07/28/18 at 06:51; Status DC Hydralazine HCl (Apresoline Inj) 20 mg STK-MED ONCE .ROUTE ; Start 07/28/18 at 07:11; Stop 07/28/18 at 07:12; Status DC Pantoprazole Sodium (PROTONIX VIAL for IV PUSH) 40 mg BID IVP Last administered on 07/30/18at 08:16; Start 07/28/18 at 09:00 Sevoflurane (Ultane) 60 ml STK-MED ONCE IH ; Start 07/28/18 at 07:22; Stop 07/28/18 at 07:23; Status DC Fentanyl Citrate (Fentanyl 2ml Vial) 100 mcg STK-MED ONCE .ROUTE ; Start 07/28/18 at 08:00; Stop 07/28/18 at 08:01; Status DC Ondansetron HCl (Zofran) 4 mg PRN Q6HRS PRN IV NAUSEA/VOMITING 1ST CHOICE; Start 07/28/18 at 08:30 Morphine Sulfate (Morphine Sulfate) 2 mg PRN Q2HR PRN IV PAIN Last administered on 07/28/18at 09:14; Start 07/28/18 at 08:30; Stop 07/28/18 at 10:05; Status DC Ringer's Solution 1,000 ml @ 75 mls/hr [id number] IV Last administered on 07/29/18at 21:48; Start 07/28/18 at 05:50; Stop 07/30/18 at 08:45; Status DC Morphine Sulfate (Morphine Sulfate) 4 mg PRN Q2HR PRN IV MODERATE TO SEVERE PAIN Last administered on 07/30/18at 08:13; Start 07/28/18 at 10:15 Pantoprazole Sodium (PROTONIX VIAL for IV PUSH) 40 mg 1X ONCE IVP ; Start 12/06 at 10:15; Stop 07/28/18 at 10:16; Status DC Pantoprazole Sodium (PROTONIX VIAL for IV PUSH) 40 mg DAILYAC IVP ; Start 01/06 at 07:30; Stop 07/29/18 at 07:30; Status DC Enoxaparin Sodium (Lovenox 40mg Syringe) 40 mg Q24H SQ Last administered on 07/30/18at 11:06; Start 07/28/18 at 11:00 Multivitamins 10 ml/Thiamine HCl 100 mg/Folic Acid 1 mg/Sodium Chloride 1,011.2 ml @ 1,000.088 mls/hr DAILY IV Last administered on 07/30/18at 08:17; Start 07/28/18 at 11:00; Stop 08/02/18 at 10:59 Lorazepam (Ativan Inj) 1 mg PRN Q4HRS PRN IV ANXIETY / AGITATION Last administered on 07/28/18at 21:16; Start 07/28/18 at 10:15 Info (Tpn Per Pharmacy) 1 each PRN DAILY PRN MC SEE COMMENTS Last administered on 07/29/18at 12:51; Start 07/29/18 at 09:30; Stop 07/29/18 at 21:38; Status DC Sodium Chloride 90 meq/Potassium Chloride 50 meq/ Potassium Phosphate 13.6 mmol/Magnesium Sulfate 10 meq/ Calcium Gluconate 10 meq/ Multivitamins 10 ml/Chromium/ Copper/Manganese/ Seleni/Zn 1 ml/ Total Parenteral Nutrition/Amino Acids/Dextrose/ Fat Emulsion Intravenous 1,512 ml @ 63 mls/hr TPN CONT IV ; Start 07/29/18 at 22:00; Stop 07/29/18 at 22:00; Status DC Nicotine (Nicoderm Cq 21mg) 1 patch PRN DAILY PRN TD SMOKING CESSATION Last administered on 07/30/18at 11:04; Start 07/29/18 at 15:15 Amino Acids/ Glycerin/ Electrolytes 1,000 ml @ 80 mls/hr [id number] IV Last administered on 07/30/18at 10:54; Start 07/29/18 at 22:00 Metoprolol Tartrate (Lopressor Vial) 5 mg PRN Q6HRS PRN IVP HYPERTENSION; Start 07/30/18 at 11:30 Enalaprilat (Vasotec Inj) 1.25 mg PRN Q6HRS PRN IVP HYPERTENSION; Start 07/30/18 at 11:30 Active Scripts Active Reported No Known Medications Prior To Admisstion (Info) Each 1 Each 1X Vitals/I & O Vital Sign - Last 24 Hours 07/29/18 07/29/18 07/29/18 07/29/18 14:08 15:00 18:55 19:00 Temp 98.0 99.2 98.0 99.2 Pulse 108 103 Resp 16 20 B/P (MAP) 153/97 (115) 167/88 (114) Pulse Ox 95 96 O2 Delivery Room Air Room Air Room Air Room Air 07/29/18 07/29/18 07/30/18 07/30/18 19:45 23:00 00:13 03:51 Temp 98.7 98.7 Pulse 102 Resp 20 B/P (MAP) 159/100 (119) Pulse Ox 96 O2 Delivery Room Air Room Air Room Air Room Air 07/30/18 07/30/18 07/30/18 07/30/18 03:53 07:00 08:13 08:43 Temp 98.6 98.0 98.6 98.0 Pulse 94 100 Resp 20 18 B/P (MAP) 160/103 (122) 161/104 (123) Pulse Ox 97 97 97 97 O2 Delivery Room Air Room Air Room Air Room Air O2 Flow Rate 8.0 8.0 07/30/18 11:00 Temp 98.5 98.5 Pulse 94 Resp 16 B/P (MAP) 154/101 (118) Pulse Ox 96 O2 Delivery Room Air Intake and Output 07/29/18 07/29/18 07/30/18 15:00 23:00 07:00 Output Total 1700 ml 1350 ml 2550 ml Balance -1700 ml -1350 ml -2550 ml RADHA GRIER MD Jul 30, 2018 12:32
[2018-07-30 15:00] VITALS: BP 150/106
[2018-07-30 19:00] VITALS: BP 162/109
[2018-07-30 23:00] VITALS: BP 163/114
[2018-07-31] MEDS: MORPHINE SULFATE 4 MG/ML VIAL. IV PRN (00:14)
[2018-07-31 03:00] VITALS: BP 132/97
[2018-07-31 04:42] LABS: CALCIUM 8.9 mg/dL (8.5-10.1); CREATININE 0.8 mg/dL (0.7-1.3); GFR 119.3; MAGNESIUM 2.1 mg/dL (1.8-2.4); PHOSPHORUS 3.1 mg/dL (2.6-4.7)
[2018-07-31] MEDS: MEROPENEM 1 GM in IV NORMAL SALINE 100ML 100 ML IV SCH ×3 (06:00→21:04)
[2018-07-31 07:00] VITALS: BP 145/99
[2018-07-31] MEDS: MULTIVIT INFUSN,ADULT 4,VIT K 10 ML, THIAMINE INJ 100 MG, FOLIC ACID INJ 1 MG in IV NOR... IV SCH (09:00)
[2018-07-31] MEDS: PANTOPRAZOLE IV PUSH 40 MG VIAL. IVP SCH ×2 (09:00→21:04)
--- NOTE | 2018-07-31 09:00 | NUR ---
RE: 09:00 Medication barcodes would not scan - meds given
--- NOTE | 2018-07-31 09:19 | PDOC ---
PROGRESS NOTES Chief Complaint Chief Complaint s/p Exploratory laparotomy, primary repair of perforated pyloric channel ulcer with omental patch - alcoholism Positive amphetamine and cocaine use-UDS in the system History of perforated appendix distant past History of Present Illness History of Present Illness Postop day #4 NG x 4 days, out today 07/31/2018 Working with therapy today, need some assistance GS notes indicates possible clears today ProcalAmine Plan: cont ProcalAmine Possible clears today Continue PT OT He did have some recreational drug use [employer] Vitals Vitals Vital Signs Date Time Temp Pulse Resp B/P (MAP) Pulse Ox O2 Delivery O2 Flow Rate FiO2 07/31/18 07:00 98.4 97 18 145/99 (114) 100 Room Air 98.4 07/30/18 20:00 8.0 Physical Exam General: Alert Heart: Regular rate, Normal S1, Normal S2 Lungs: Clear Abdomen: Soft (tender with palpation) Extremities: No clubbing, No cyanosis Skin: No rashes, No breakdown, No significant lesion Labs LABS Laboratory Tests Test 07/31/18 03:25 Sodium Level 139 mmol/L (136-145) Potassium Level 4.0 mmol/L (3.5-5.1) Chloride Level 101 mmol/L (98-107) Carbon Dioxide Level 29 mmol/L (21-32) Anion Gap 9 (6-14) Blood Urea Nitrogen 14 mg/dL (8-26) Creatinine 0.8 mg/dL (0.7-1.3) Estimated GFR (Cockcroft-Gault) 119.3 Glucose Level 98 mg/dL (70-99) Calcium Level 8.9 mg/dL (8.5-10.1) Phosphorus Level 3.1 mg/dL (2.6-4.7) Magnesium Level 2.1 mg/dL (1.8-2.4) Review of Systems Review of Systems Some postop soreness otherwise rest of ROS 14 point negative Assessment and Plan Assessmemt and Plan Problems Medical Problems: (1) Abdominal pain Status: Acute (2) Perforated abdominal viscus Status: Acute Comment Review of Relevant I have reviewed the following items steph (where applicable) has been applied. Labs Laboratory Tests Test 07/30/18 05:17 07/31/18 03:25 Prothrombin Time 12.7 SEC (11.7-14.0) Prothromb Time International Ratio 1.0 (0.8-1.1) Sodium Level 139 mmol/L (136-145) 139 mmol/L (136-145) Potassium Level 3.9 mmol/L (3.5-5.1) 4.0 mmol/L (3.5-5.1) Chloride Level 101 mmol/L (98-107) 101 mmol/L (98-107) Carbon Dioxide Level 30 mmol/L (21-32) 29 mmol/L (21-32) Anion Gap 8 (6-14) 9 (6-14) Blood Urea Nitrogen 14 mg/dL (8-26) 14 mg/dL (8-26) Creatinine 1.0 mg/dL (0.7-1.3) 0.8 mg/dL (0.7-1.3) Estimated GFR (Cockcroft-Gault) 92.2 119.3 Glucose Level 89 mg/dL (70-99) 98 mg/dL (70-99) Calcium Level 8.6 mg/dL (8.5-10.1) 8.9 mg/dL (8.5-10.1) Phosphorus Level 3.0 mg/dL (2.6-4.7) 3.1 mg/dL (2.6-4.7) Magnesium Level 2.2 mg/dL (1.8-2.4) 2.1 mg/dL (1.8-2.4) Triglycerides Level 86 mg/dL (0-150) Laboratory Tests Test 07/31/18 03:25 Sodium Level 139 mmol/L (136-145) Potassium Level 4.0 mmol/L (3.5-5.1) Chloride Level 101 mmol/L (98-107) Carbon Dioxide Level 29 mmol/L (21-32) Anion Gap 9 (6-14) Blood Urea Nitrogen 14 mg/dL (8-26) Creatinine 0.8 mg/dL (0.7-1.3) Estimated GFR (Cockcroft-Gault) 119.3 Glucose Level 98 mg/dL (70-99) Calcium Level 8.9 mg/dL (8.5-10.1) Phosphorus Level 3.1 mg/dL (2.6-4.7) Magnesium Level 2.1 mg/dL (1.8-2.4) Microbiology 07/28/18 Blood Culture - Preliminary, Resulted NO GROWTH AFTER 3 DAYS 07/28/18 Urine Culture - Final, Complete 07/28/18 Urine Culture Result 1 (REE) - Final, Complete Medications Current Medications Fentanyl Citrate (Fentanyl 2ml Vial) 50 mcg PRN Q15MIN PRN IV PAIN GREATER THAN 3/10 Last administered on 07/28/18 08:30; Start 07/27/18 at 20:15; Stop 07/28/18 at 20:14; Status DC Sodium Chloride 1,000 ml @ 1,000 mls/hr Q1H IV Last administered on 07/27/18at 20:29; Start 07/27/18 at 20:06; Stop 07/27/18 at 21:05; Status DC Ondansetron HCl (Zofran) 4 mg 1X ONCE IV Last administered on 07/27/18at 20:29; Start 07/27/18 at 20:15; Stop 07/27/18 at 20:19; Status DC Iohexol (Omnipaque 300 Mg/ml) 75 ml 1X ONCE IV Last administered on 07/27/18at 21:05; Start 07/27/18 at 21:00; Stop 07/27/18 at 21:01; Status DC Meropenem 1 gm/ Sodium Chloride 100 ml @ 200 mls/hr Q8HRS IV Last administered on 07/31/18at 06:00; Start 07/27/18 at 22:30 Ondansetron HCl (Zofran) 4 mg PRN Q8HRS PRN IV NAUSEA/VOMITING 1ST CHOICE; Start 07/27/18 at 22:15; Stop 07/28/18 at 08:29; Status DC Fentanyl Citrate (Fentanyl 2ml Vial) 50 mcg PRN Q1HR PRN IV SEVERE PAIN Last administered on 07/28/18at 05:46; Start 07/27/18 at 22:15; Stop 07/28/18 at 08:30; Status DC Sodium Chloride 1,000 ml @ 125 mls/hr Q8H IV Last administered on 07/28/18at 18:15; Start 07/27/18 at 22:30; Stop 07/28/18 at 22:29; Status DC Methylprednisolone Sodium Succinate (SOLU-Medrol 125MG VIAL) 125 mg 1X ONCE IV Last administered on 07/27/18at 22:28; Start 07/27/18 at 23:00; Stop 07/27/18 at 23:01; Status DC Diphenhydramine HCl (Benadryl) 25 mg 1X ONCE IVP Last administered on 07/27/18at 22:29; Start 07/27/18 at 23:00; Stop 07/27/18 at 23:01; Status DC Cefazolin Sodium/ Dextrose 50 ml @ 100 mls/hr PREOP PRN PRN IV PREOP Last administered on 07/28/18at 06:05; Start 07/28/18 at 05:30; Stop 07/29/18 at 05:30; Status DC Metronidazole 100 ml @ 100 mls/hr PREOP PRN PRN IV PREOP Last administered on 07/28/18at 06:20; Start 07/28/18 at 05:30; Stop 07/29/18 at 05:30; Status DC Sevoflurane (Ultane) 90 ml STK-MED ONCE IH ; Start 07/28/18 at 05:34; Stop 07/28/18 at 05:35; Status DC Midazolam HCl (Versed) 2 mg STK-MED ONCE .ROUTE ; Start 07/28/18 at 05:35; Stop 07/28/18 at 05:36; Status DC Fentanyl Citrate (Fentanyl 2ml Vial) 100 mcg STK-MED ONCE .ROUTE ; Start 07/28/18 at 05:35; Stop 07/28/18 at 05:36; Status DC Rocuronium [place] (Zemuron) 100 mg STK-MED ONCE .ROUTE ; Start 07/28/18 at 05:35; Stop 07/28/18 at 05:36; Status DC Glycopyrrolate (Robinul) 1 mg STK-MED ONCE .ROUTE ; Start 07/28/18 at 05:35; Stop 07/28/18 at 05:36; Status DC Neostigmine Methylsulfate (Neostigmine Methylsulfate) 5 mg STK-MED ONCE .ROUTE ; Start 07/28/18 at 05:36; Stop 07/28/18 at 05:37; Status DC Propofol 20 ml @ As Directed STK-MED ONCE IV ; Start 07/28/18 at 05:36; Stop 07/28/18 at 05:37; Status DC Lidocaine HCl (Lidocaine Pf 2% Vial) 5 ml STK-MED ONCE .ROUTE ; Start 07/28/18 at 05:36; Stop 07/28/18 at 05:37; Status DC Dexamethasone Sodium Phosphate (Decadron) 4 mg STK-MED ONCE .ROUTE ; Start 07/28/18 at 05:36; Stop 07/28/18 at 05:37; Status DC Ondansetron HCl (Zofran) 4 mg STK-MED ONCE .ROUTE ; Start 07/28/18 at 05:36; Stop 07/28/18 at 05:37; Status DC Succinylcholine Chloride (Anectine) 200 mg STK-MED ONCE .ROUTE ; Start 07/28/18 at 05:37; Stop 07/28/18 at 05:38; Status DC Fentanyl Citrate (Fentanyl 2ml Vial) 100 mcg STK-MED ONCE .ROUTE ; Start 07/28/18 at 06:50; Stop 07/28/18 at 06:51; Status DC Hydralazine HCl (Apresoline Inj) 20 mg STK-MED ONCE .ROUTE ; Start 07/28/18 at 07:11; Stop 07/28/18 at 07:12; Status DC Pantoprazole Sodium (PROTONIX VIAL for IV PUSH) 40 mg BID IVP Last administered on 07/30/18at 20:45; Start 07/28/18 at 09:00 Sevoflurane (Ultane) 60 ml STK-MED ONCE IH ; Start 07/28/18 at 07:22; Stop 07/28/18 at 07:23; Status DC Fentanyl Citrate (Fentanyl 2ml Vial) 100 mcg STK-MED ONCE .ROUTE ; Start 07/28/18 at 08:00; Stop 07/28/18 at 08:01; Status DC Ondansetron HCl (Zofran) 4 mg PRN Q6HRS PRN IV NAUSEA/VOMITING 1ST CHOICE; Start 07/28/18 at 08:30 Morphine Sulfate (Morphine Sulfate) 2 mg PRN Q2HR PRN IV PAIN Last administered on 07/28/18at 09:14; Start 07/28/18 at 08:30; Stop 07/28/18 at 10:05; Status DC Ringer's Solution 1,000 ml @ 75 mls/hr [id number] IV Last administered on 07/29/18at 21:48; Start 07/28/18 at 05:50; Stop 07/30/18 at 08:45; Status DC Morphine Sulfate (Morphine Sulfate) 4 mg PRN Q2HR PRN IV MODERATE TO SEVERE PAIN Last administered on 07/31/18at 00:14; Start 07/28/18 at 10:15 Pantoprazole Sodium (PROTONIX VIAL for IV PUSH) 40 mg 1X ONCE IVP ; Start 07/28/18 at 10:15; Stop 07/28/18 at 10:16; Status DC Pantoprazole Sodium (PROTONIX VIAL for IV PUSH) 40 mg DAILYAC IVP ; Start 07/29/18 at 07:30; Stop 07/29/18 at 07:30; Status DC Enoxaparin Sodium (Lovenox 40mg Syringe) 40 mg Q24H SQ Last administered on 07/30/18at 11:06; Start 07/28/18 at 11:00 Multivitamins 10 ml/Thiamine HCl 100 mg/Folic Acid 1 mg/Sodium Chloride 1,011.2 ml @ 1,000.088 mls/hr DAILY IV Last administered on 07/30/18at 08:17; Start 07/28/18 at 11:00; Stop 08/02/18 at 10:59 Lorazepam (Ativan Inj) 1 mg PRN Q4HRS PRN IV ANXIETY / AGITATION Last administered on 07/28/18at 21:16; Start 07/28/18 at 10:15 Info (Tpn Per Pharmacy) 1 each PRN DAILY PRN MC SEE COMMENTS Last administered on 07/29/18at 12:51; Start 07/29/18 at 09:30; Stop 07/29/18 at 21:38; Status DC Sodium Chloride 90 meq/Potassium Chloride 50 meq/ Potassium Phosphate 13.6 mmol/Magnesium Sulfate 10 meq/ Calcium Gluconate 10 meq/ Multivitamins 10 ml/Chromium/ Copper/Manganese/ Seleni/Zn 1 ml/ Total Parenteral Nutrition/Amino Acids/Dextrose/ Fat Emulsion Intravenous 1,512 ml @ 63 mls/hr TPN CONT IV ; Start 07/29/18 at 22:00; Stop 07/29/18 at 22:00; Status DC Nicotine (Nicoderm Cq 21mg) 1 patch PRN DAILY PRN TD SMOKING CESSATION Last administered on 07/30/18at 11:04; Start 07/29/18 at 15:15 Amino Acids/ Glycerin/ Electrolytes 1,000 ml @ 80 mls/hr [id number] IV Last administered on 07/30/18at 23:00; Start 07/29/18 at 22:00 Metoprolol Tartrate (Lopressor Vial) 5 mg PRN Q6HRS PRN IVP HYPERTENSION; Start 07/30/18 at 11:30 Enalaprilat (Vasotec Inj) 1.25 mg PRN Q6HRS PRN IVP HYPERTENSION; Start 07/30/18 at 11:30 Active Scripts Active Reported No Known Medications Prior To Admisstion (Info) Each 1 Each 1X Vitals/I & O Vital Sign - Last 24 Hours 07/30/18 07/30/18 07/30/18 07/30/18 11:00 14:30 15:00 17:30 Temp 98.5 98.9 98.5 98.9 Pulse 94 88 Resp 16 16 B/P (MAP) 154/101 (118) 150/106 (121) Pulse Ox 96 96 96 96 O2 Delivery Room Air Room Air Room Air Room Air O2 Flow Rate 8.0 8.0 07/30/18 07/30/18 07/30/18 07/30/18 18:00 19:00 20:00 20:46 Temp 98.6 98.6 Pulse 101 Resp 16 B/P (MAP) 162/109 (126) Pulse Ox 96 96 O2 Delivery Room Air Room Air Room Air O2 Flow Rate 8.0 8.0 07/30/18 07/31/18 07/31/18 07/31/18 23:00 01:00 03:00 07:00 Temp 98.9 98.6 98.4 98.9 98.6 98.4 Pulse 107 102 97 Resp 18 16 18 B/P (MAP) 163/114 (130) 132/97 (109) 145/99 (114) Pulse Ox 97 95 100 O2 Delivery Room Air Room Air Room Air Room Air Intake and Output 07/30/18 07/30/18 07/31/18 15:00 23:00 07:00 Intake Total 0 ml 100 ml Output Total 5800 ml Balance 0 ml 100 ml -5800 ml ARAVIND ZEE MD Jul 31, 2018 09:19
--- NOTE | 2018-07-31 10:00 | NUR ---
Patient refused wound care.
[2018-07-31 11:00] VITALS: BP 134/92
[2018-07-31] MEDS: ENOXAPARIN 40 MG/0.4 ML SYRINGE. SQ SCH (11:04)
--- NOTE | 2018-07-31 12:10 | PDOC ---
PROGRESS NOTES Subjective Subjective improving, hungry Objective Objective Vital Signs Date Time Temp Pulse Resp B/P (MAP) Pulse Ox O2 Delivery O2 Flow Rate FiO2 07/31/18 07:00 98.4 97 18 145/99 (114) 100 Room Air 98.4 07/30/18 20:00 8.0 Intake and Output 07/31/18 06:59 Intake Total 100 ml Output Total 5800 ml Balance -5700 ml Intake Oral 0 ml IV Total 100 ml Output Urine Total 5800 ml Gastric Drainage Total 0 ml Physical Exam Abdomen: Soft, No tenderness Assessment Assessment Problems Medical Problems: (1) Abdominal pain Status: Acute (2) Perforated abdominal viscus Status: Acute Plan Plan of Care clear liquids Comment Review of Relevant I have reviewed the following items steph (where applicable) has been applied. Labs Laboratory Tests Test 07/30/18 05:17 07/31/18 03:25 Prothrombin Time 12.7 SEC (11.7-14.0) Prothromb Time International Ratio 1.0 (0.8-1.1) Sodium Level 139 mmol/L (136-145) 139 mmol/L (136-145) Potassium Level 3.9 mmol/L (3.5-5.1) 4.0 mmol/L (3.5-5.1) Chloride Level 101 mmol/L (98-107) 101 mmol/L (98-107) Carbon Dioxide Level 30 mmol/L (21-32) 29 mmol/L (21-32) Anion Gap 8 (6-14) 9 (6-14) Blood Urea Nitrogen 14 mg/dL (8-26) 14 mg/dL (8-26) Creatinine 1.0 mg/dL (0.7-1.3) 0.8 mg/dL (0.7-1.3) Estimated GFR (Cockcroft-Gault) 92.2 119.3 Glucose Level 89 mg/dL (70-99) 98 mg/dL (70-99) Calcium Level 8.6 mg/dL (8.5-10.1) 8.9 mg/dL (8.5-10.1) Phosphorus Level 3.0 mg/dL (2.6-4.7) 3.1 mg/dL (2.6-4.7) Magnesium Level 2.2 mg/dL (1.8-2.4) 2.1 mg/dL (1.8-2.4) Triglycerides Level 86 mg/dL (0-150) Laboratory Tests Test 07/31/18 03:25 Sodium Level 139 mmol/L (136-145) Potassium Level 4.0 mmol/L (3.5-5.1) Chloride Level 101 mmol/L (98-107) Carbon Dioxide Level 29 mmol/L (21-32) Anion Gap 9 (6-14) Blood Urea Nitrogen 14 mg/dL (8-26) Creatinine 0.8 mg/dL (0.7-1.3) Estimated GFR (Cockcroft-Gault) 119.3 Glucose Level 98 mg/dL (70-99) Calcium Level 8.9 mg/dL (8.5-10.1) Phosphorus Level 3.1 mg/dL (2.6-4.7) Magnesium Level 2.1 mg/dL (1.8-2.4) Microbiology 07/28/18 Blood Culture - Preliminary, Resulted NO GROWTH AFTER 3 DAYS 07/28/18 Urine Culture - Final, Complete 07/28/18 Urine Culture Result 1 (REE) - Final, Complete Medications Current Medications Fentanyl Citrate (Fentanyl 2ml Vial) 50 mcg PRN Q15MIN PRN IV PAIN GREATER THAN 3/10 Last administered on 07/28/18at 08:30; Start 07/27/18 at 20:15; Stop 07/28/18 at 20:14; Status DC Sodium Chloride 1,000 ml @ 1,000 mls/hr Q1H IV Last administered on 07/27/18at 20:29; Start 07/27/18 at 20:06; Stop 07/27/18 at 21:05; Status DC Ondansetron HCl (Zofran) 4 mg 1X ONCE IV Last administered on 07/27/18at 20:29; Start 07/27/18 at 20:15; Stop 07/27/18 at 20:19; Status DC Iohexol (Omnipaque 300 Mg/ml) 75 ml 1X ONCE IV Last administered on 07/27/18at 21:05; Start 07/27/18 at 21:00; Stop 07/27/18 at 21:01; Status DC Meropenem 1 gm/ Sodium Chloride 100 ml @ 200 mls/hr Q8HRS IV Last administered on 07/31/18at 06:00; Start 07/27/18 at 22:30 Ondansetron HCl (Zofran) 4 mg PRN Q8HRS PRN IV NAUSEA/VOMITING 1ST CHOICE; Start 07/27/18 at 22:15; Stop 07/28/18 at 08:29; Status DC Fentanyl Citrate (Fentanyl 2ml Vial) 50 mcg PRN Q1HR PRN IV SEVERE PAIN Last administered on 07/28/18at 05:46; Start 07/27/18 at 22:15; Stop 07/28/18 at 08:30; Status DC Sodium Chloride 1,000 ml @ 125 mls/hr Q8H IV Last administered on 07/28/18at 18:15; Start 07/27/18 at 22:30; Stop 07/28/18 at 22:29; Status DC Methylprednisolone Sodium Succinate (SOLU-Medrol 125MG VIAL) 125 mg 1X ONCE IV Last administered on 07/27/18at 22:28; Start 07/27/18 at 23:00; Stop 07/27/18 at 23:01; Status DC Diphenhydramine HCl (Benadryl) 25 mg 1X ONCE IVP Last administered on 07/27/18at 22:29; Start 07/27/18 at 23:00; Stop 07/27/18 at 23:01; Status DC Cefazolin Sodium/ Dextrose 50 ml @ 100 mls/hr PREOP PRN PRN IV PREOP Last administered on 07/28/18at 06:05; Start 07/28/18 at 05:30; Stop 07/29/18 at 05:30; Status DC Metronidazole 100 ml @ 100 mls/hr PREOP PRN PRN IV PREOP Last administered on 07/28/18at 06:20; Start 07/28/18 at 05:30; Stop 07/29/18 at 05:30; Status DC Sevoflurane (Ultane) 90 ml STK-MED ONCE IH ; Start 07/28/18 at 05:34; Stop 07/28/18 at 05:35; Status DC Midazolam HCl (Versed) 2 mg STK-MED ONCE .ROUTE ; Start 07/28/18 at 05:35; Stop 07/28/18 at 05:36; Status DC Fentanyl Citrate (Fentanyl 2ml Vial) 100 mcg STK-MED ONCE .ROUTE ; Start 07/28/18 at 05:35; Stop 07/28/18 at 05:36; Status DC Rocuronium [place] (Zemuron) 100 mg STK-MED ONCE .ROUTE ; Start 07/28/18 at 05:35; Stop 07/28/18 at 05:36; Status DC Glycopyrrolate (Robinul) 1 mg STK-MED ONCE .ROUTE ; Start 07/28/18 at 05:35; Stop 07/28/18 at 05:36; Status DC Neostigmine Methylsulfate (Neostigmine Methylsulfate) 5 mg STK-MED ONCE .ROUTE ; Start 07/28/18 at 05:36; Stop 07/28/18 at 05:37; Status DC Propofol 20 ml @ As Directed STK-MED ONCE IV ; Start 07/28/18 at 05:36; Stop 07/28/18 at 05:37; Status DC Lidocaine HCl (Lidocaine Pf 2% Vial) 5 ml STK-MED ONCE .ROUTE ; Start 07/28/18 at 05:36; Stop 07/28/18 at 05:37; Status DC Dexamethasone Sodium Phosphate (Decadron) 4 mg STK-MED ONCE .ROUTE ; Start 07/28/18 at 05:36; Stop 07/28/18 at 05:37; Status DC Ondansetron HCl (Zofran) 4 mg STK-MED ONCE .ROUTE ; Start 07/28/18 at 05:36; Stop 07/28/18 at 05:37; Status DC Succinylcholine Chloride (Anectine) 200 mg STK-MED ONCE .ROUTE ; Start 07/28/18 at 05:37; Stop 07/28/18 at 05:38; Status DC Fentanyl Citrate (Fentanyl 2ml Vial) 100 mcg STK-MED ONCE .ROUTE ; Start 07/28/18 at 06:50; Stop 07/28/18 at 06:51; Status DC Hydralazine HCl (Apresoline Inj) 20 mg STK-MED ONCE .ROUTE ; Start 07/28/18 at 07:11; Stop 07/28/18 at 07:12; Status DC Pantoprazole Sodium (PROTONIX VIAL for IV PUSH) 40 mg BID IVP Last administered on 07/31/18at 09:00; Start 07/28/18 at 09:00 Sevoflurane (Ultane) 60 ml STK-MED ONCE IH ; Start 07/28/18 at 07:22; Stop 07/28/18 at 07:23; Status DC Fentanyl Citrate (Fentanyl 2ml Vial) 100 mcg STK-MED ONCE .ROUTE ; Start 07/28/18 at 08:00; Stop 07/28/18 at 08:01; Status DC Ondansetron HCl (Zofran) 4 mg PRN Q6HRS PRN IV NAUSEA/VOMITING 1ST CHOICE; Start 07/28/18 at 08:30 Morphine Sulfate (Morphine Sulfate) 2 mg PRN Q2HR PRN IV PAIN Last administered on 07/28/18at 09:14; Start 07/28/18 at 08:30; Stop 07/28/18 at 10:05; Status DC Ringer's Solution 1,000 ml @ 75 mls/hr [id number] IV Last administered on 07/29/18at 21:48; Start 07/28/18 at 05:50; Stop 07/30/18 at 08:45; Status DC Morphine Sulfate (Morphine Sulfate) 4 mg PRN Q2HR PRN IV MODERATE TO SEVERE PAIN Last administered on 07/31/18at 00:14; Start 07/28/18 at 10:15 Pantoprazole Sodium (PROTONIX VIAL for IV PUSH) 40 mg 1X ONCE IVP ; Start 07/28 at 10:15; Stop 07/28/18 at 10:16; Status DC Pantoprazole Sodium (PROTONIX VIAL for IV PUSH) 40 mg DAILYAC IVP ; Start 07/29 at 07:30; Stop 07/29/18 at 07:30; Status DC Enoxaparin Sodium (Lovenox 40mg Syringe) 40 mg Q24H SQ Last administered on at 11:04; Start 07/28/18 at 11:00 Multivitamins 10 ml/Thiamine HCl 100 mg/Folic Acid 1 mg/Sodium Chloride 1,011.2 ml @ 1,000.088 mls/hr DAILY IV Last administered on 07/31/18at 09:00; Start 07/28/18 at 11:00; Stop 08/02/18 at 10:59 Lorazepam (Ativan Inj) 1 mg PRN Q4HRS PRN IV ANXIETY / AGITATION Last administered on 07/28/18at 21:16; Start 07/28/18 at 10:15 Info (Tpn Per Pharmacy) 1 each PRN DAILY PRN MC SEE COMMENTS Last administered on 07/29/18at 12:51; Start 07/29/18 at 09:30; Stop 07/29/18 at 21:38; Status DC Sodium Chloride 90 meq/Potassium Chloride 50 meq/ Potassium Phosphate 13.6 mmol/Magnesium Sulfate 10 meq/ Calcium Gluconate 10 meq/ Multivitamins 10 ml/Chromium/ Copper/Manganese/ Seleni/Zn 1 ml/ Total Parenteral Nutrition/Amino Acids/Dextrose/ Fat Emulsion Intravenous 1,512 ml @ 63 mls/hr TPN CONT IV ; Start 07/29/18 at 22:00; Stop 07/29/18 at 22:00; Status DC Nicotine (Nicoderm Cq 21mg) 1 patch PRN DAILY PRN TD SMOKING CESSATION Last administered on 07/30/18at 11:04; Start 07/29/18 at 15:15 Amino Acids/ Glycerin/ Electrolytes 1,000 ml @ 80 mls/hr [id number] IV Last administered on 07/30/18at 23:00; Start 07/29/18 at 22:00 Metoprolol Tartrate (Lopressor Vial) 5 mg PRN Q6HRS PRN IVP HYPERTENSION; Start 07/30/18 at 11:30 Enalaprilat (Vasotec Inj) 1.25 mg PRN Q6HRS PRN IVP HYPERTENSION; Start 07/30/18 at 11:30 Active Scripts Active Reported No Known Medications Prior To Admisstion (Info) Each 1 Each MC 1X Vitals/I & O Vital Sign - Last 24 Hours 07/30/18 07/30/18 07/30/18 07/30/18 14:30 15:00 17:30 18:00 Temp 98.9 98.9 Pulse 88 Resp 16 B/P (MAP) 150/106 (121) Pulse Ox 96 96 96 96 O2 Delivery Room Air Room Air Room Air O2 Flow Rate 8.0 8.0 8.0 07/30/18 07/30/18 07/30/18 07/30/18 19:00 20:00 20:46 23:00 Temp 98.6 98.9 98.6 98.9 Pulse 101 107 Resp 16 18 B/P (MAP) 162/109 (126) 163/114 (130) Pulse Ox 96 97 O2 Delivery Room Air Room Air Room Air Room Air O2 Flow Rate 8.0 07/31/18 07/31/18 07/31/18 01:00 03:00 07:00 Temp 98.6 98.4 98.6 98.4 Pulse 102 97 Resp 16 18 B/P (MAP) 132/97 (109) 145/99 (114) Pulse Ox 95 100 O2 Delivery Room Air Room Air Room Air Intake and Output 07/30/18 07/30/18 07/31/18 14:59 22:59 06:59 Intake Total 0 ml 0 ml 100 ml Output Total 5800 ml Balance 0 ml 0 ml -5700 ml RADHA GRIER MD Jul 31, 2018 12:10
[2018-07-31] MEDS: AMINO AC 3%/ELECTROLYTE/GLYCER 1,000 ML IV SCH ×2 (13:07→23:37)
--- NOTE | 2018-07-31 13:10 | NUR ---
RD: ProcalAmine - was still some of previous bottle remaining until now, at which time new bottle started
[2018-07-31 15:00] VITALS: BP 125/81
[2018-07-31 19:00] VITALS: BP 138/94
--- NOTE | 2018-07-31 19:10 | NUR ---
Offered wound care (abdominal dressing change) to patient; however, patient refused wound care.
[2018-07-31 23:00] VITALS: BP 132/86
[2018-08-01] MEDS: MORPHINE SULFATE 4 MG/ML VIAL. IV PRN ×4 (02:46→13:33)
[2018-08-01 03:00] VITALS: BP 146/93
[2018-08-01 05:33] LABS: CALCIUM 8.5 mg/dL (8.5-10.1); CREATININE 0.6 mg/dL (0.7-1.3); GFR 166.3; MAGNESIUM 2.3 mg/dL (1.8-2.4); PHOSPHORUS 3.2 mg/dL (2.6-4.7)
[2018-08-01] MEDS: MEROPENEM 1 GM in IV NORMAL SALINE 100ML 100 ML IV SCH ×3 (06:02→22:13)
[2018-08-01 07:00] VITALS: BP 143/90
[2018-08-01] MEDS: PANTOPRAZOLE IV PUSH 40 MG VIAL. IVP SCH ×2 (08:58→21:19)
[2018-08-01] MEDS: MULTIVIT INFUSN,ADULT 4,VIT K 10 ML, THIAMINE INJ 100 MG, FOLIC ACID INJ 1 MG in IV NOR... IV SCH (08:59)
--- NOTE | 2018-08-01 09:38 | PDOC ---
PROGRESS NOTES Chief Complaint Chief Complaint s/p POD # 5 Exploratory laparotomy, primary repair of perforated pyloric channel ulcer with omental patch - alcoholism Positive amphetamine and cocaine use-UDS in the system History of perforated appendix distant past Status post perforated duodenal ulcer, irritable today 43 min pt exam, chart review, > 50% of time spent with exam, chart review, pt care coordination History of Present Illness History of Present Illness Postop day #5 NG x 4 days, out today 07/31/2018 Working with therapy today, need some assistance GS notes indicates possible clears today ProcalAmine Plan: cont ProcalAmine WITHDRAWAL PRECAUTIONS Continue PT OT 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 HISTORY: Pain. TECHNIQUE: Computed tomographic images of the abdomen and pelvis were obtained following the administration of 75 cc Omnipaque 300 intravenous contrast. Multiplanar reformatting was performed. *One or more of the following individualized dose reduction techniques were utilized for this examination: 1. Automated exposure control. 2. Adjustment of the mA and/or kV according to patient size. 3. Use of iterative reconstruction technique. COMPARISON: 08/05/2010 and 04/24/2010. FINDINGS: Evaluation of the lower thorax demonstrates posterior dependent atelectasis. There is no infiltrate or pleural effusion. There is a small focus of gas anterior anterior inferior mediastinum. There is also a tiny amount of pneumoperitoneum and gas within the midline ventral abdominal wall primarily at the level of the umbilicus. There are few stable small hypodense lesions within the liver, the largest of which measures 1.2 cm with attenuation consistent with a cyst. No suspicious hepatic lesion is seen. The collar, pancreas, spleen, adrenal glands and kidneys are unremarkable. There is no appendicitis. There is a moderate to large amount of gas and stool throughout the colon. No abnormally thickened loop of bowel is seen. No drainable fluid collection is seen. There is no lymphadenopathy. There is no suspicious osseous lesion. IMPRESSION: 1. Tiny amount of pneumoperitoneum within the ventral abdominal peritoneal cavity and tiny amount of gas within the ventral abdominal wall at the level of the umbilicus. This is of uncertain etiology. Correlate for recent surgery/instrumentation. There is no convincing site of bowel perforation. 2. Moderate to large amount of gas and stool throughout the colon. Correlate for constipation. 3. Suspected small hepatic cysts. Electronically signed by: Betsey Benavidez MD (07/27/2018 9:25 PM Laboratory Tests Test 08/01/18 04:50 Sodium Level 136 mmol/L (136-145) Potassium Level 5.0 mmol/L (3.5-5.1) Chloride Level 102 mmol/L (98-107) Carbon Dioxide Level 28 mmol/L (21-32) Anion Gap 6 (6-14) Blood Urea Nitrogen 14 mg/dL (8-26) Creatinine 0.6 mg/dL (0.7-1.3) Estimated GFR (Cockcroft-Gault) 166.3 Glucose Level 112 mg/dL (70-99) Calcium Level 8.5 mg/dL (8.5-10.1) Phosphorus Level 3.2 mg/dL (2.6-4.7) Magnesium Level 2.3 mg/dL (1.8-2.4) Assessment and Plan Assessmemt and Plan Problems Medical Problems: (1) Abdominal pain Status: Acute (2) Perforated abdominal viscus Status: Acute Comment Review of Relevant I have reviewed the following items steph (where applicable) has been applied. Labs Laboratory Tests Test 07/31/18 03:25 08/01/18 04:50 Sodium Level 139 mmol/L (136-145) 136 mmol/L (136-145) Potassium Level 4.0 mmol/L (3.5-5.1) 5.0 mmol/L (3.5-5.1) Chloride Level 101 mmol/L (98-107) 102 mmol/L (98-107) Carbon Dioxide Level 29 mmol/L (21-32) 28 mmol/L (21-32) Anion Gap 9 (6-14) 6 (6-14) Blood Urea Nitrogen 14 mg/dL (8-26) 14 mg/dL (8-26) Creatinine 0.8 mg/dL (0.7-1.3) 0.6 mg/dL (0.7-1.3) Estimated GFR (Cockcroft-Gault) 119.3 166.3 Glucose Level 98 mg/dL (70-99) 112 mg/dL (70-99) Calcium Level 8.9 mg/dL (8.5-10.1) 8.5 mg/dL (8.5-10.1) Phosphorus Level 3.1 mg/dL (2.6-4.7) 3.2 mg/dL (2.6-4.7) Magnesium Level 2.1 mg/dL (1.8-2.4) 2.3 mg/dL (1.8-2.4) Laboratory Tests Test 08/01/18 04:50 Sodium Level 136 mmol/L (136-145) Potassium Level 5.0 mmol/L (3.5-5.1) Chloride Level 102 mmol/L (98-107) Carbon Dioxide Level 28 mmol/L (21-32) Anion Gap 6 (6-14) Blood Urea Nitrogen 14 mg/dL (8-26) Creatinine 0.6 mg/dL (0.7-1.3) Estimated GFR (Cockcroft-Gault) 166.3 Glucose Level 112 mg/dL (70-99) Calcium Level 8.5 mg/dL (8.5-10.1) Phosphorus Level 3.2 mg/dL (2.6-4.7) Magnesium Level 2.3 mg/dL (1.8-2.4) Microbiology 07/28/18 Blood Culture - Preliminary, Resulted NO GROWTH AFTER 4 DAYS 07/28/18 Urine Culture - Final, Complete 07/28/18 Urine Culture Result 1 (REE) - Final, Complete Medications Current Medications Fentanyl Citrate (Fentanyl 2ml Vial) 50 mcg PRN Q15MIN PRN IV PAIN GREATER THAN 3/10 Last administered on 07/28/18at 08:30; Start 07/27/18 at 20:15; Stop 07/28/18 at 20:14; Status DC Sodium Chloride 1,000 ml @ 1,000 mls/hr Q1H IV Last administered on 07/27/18at 20:29; Start 07/27/18 at 20:06; Stop 07/27/18 at 21:05; Status DC Ondansetron HCl (Zofran) 4 mg 1X ONCE IV Last administered on 07/27/18at 20:29; Start 07/27/18 at 20:15; Stop 07/27/18 at 20:19; Status DC Iohexol (Omnipaque 300 Mg/ml) 75 ml 1X ONCE IV Last administered on 07/27/18at 21:05; Start 07/27/18 at 21:00; Stop 07/27/18 at 21:01; Status DC Meropenem 1 gm/ Sodium Chloride 100 ml @ 200 mls/hr Q8HRS IV Last administered on 08/01/18at 06:02; Start 07/27/18 at 22:30 Ondansetron HCl (Zofran) 4 mg PRN Q8HRS PRN IV NAUSEA/VOMITING 1ST CHOICE; Start 07/27/18 at 22:15; Stop 07/28/18 at 08:29; Status DC Fentanyl Citrate (Fentanyl 2ml Vial) 50 mcg PRN Q1HR PRN IV SEVERE PAIN Last administered on 07/28/18at 05:46; Start 07/27/18 at 22:15; Stop 07/28/18 at 08:30; Status DC Sodium Chloride 1,000 ml @ 125 mls/hr Q8H IV Last administered on 07/28/18at 18:15; Start 07/27/18 at 22:30; Stop 07/28/18 at 22:29; Status DC Methylprednisolone Sodium Succinate (SOLU-Medrol 125MG VIAL) 125 mg 1X ONCE IV Last administered on 07/27/18at 22:28; Start 07/27/18 at 23:00; Stop 07/27/18 at 23:01; Status DC Diphenhydramine HCl (Benadryl) 25 mg 1X ONCE IVP Last administered on 07/27/18at 22:29; Start 07/27/18 at 23:00; Stop 07/27/18 at 23:01; Status DC Cefazolin Sodium/ Dextrose 50 ml @ 100 mls/hr PREOP PRN PRN IV PREOP Last administered on 07/28/18at 06:05; Start 07/28/18 at 05:30; Stop 07/29/18 at 05:30; Status DC Metronidazole 100 ml @ 100 mls/hr PREOP PRN PRN IV PREOP Last administered on 07/28/18at 06:20; Start 07/28/18 at 05:30; Stop 07/29/18 at 05:30; Status DC Sevoflurane (Ultane) 90 ml STK-MED ONCE IH ; Start 07/28/18 at 05:34; Stop 07/28/18 at 05:35; Status DC Midazolam HCl (Versed) 2 mg STK-MED ONCE .ROUTE ; Start 07/28/18 at 05:35; Stop 07/28/18 at 05:36; Status DC Fentanyl Citrate (Fentanyl 2ml Vial) 100 mcg STK-MED ONCE .ROUTE ; Start 07/28/18 at 05:35; Stop 07/28/18 at 05:36; Status DC Rocuronium [place] (Zemuron) 100 mg STK-MED ONCE .ROUTE ; Start 07/28/18 at 05:35; Stop 07/28/18 at 05:36; Status DC Glycopyrrolate (Robinul) 1 mg STK-MED ONCE .ROUTE ; Start 07/28/18 at 05:35; Stop 07/28/18 at 05:36; Status DC Neostigmine Methylsulfate (Neostigmine Methylsulfate) 5 mg STK-MED ONCE .ROUTE ; Start 07/28/18 at 05:36; Stop 07/28/18 at 05:37; Status DC Propofol 20 ml @ As Directed STK-MED ONCE IV ; Start 07/28/18 at 05:36; Stop 07/28/18 at 05:37; Status DC Lidocaine HCl (Lidocaine Pf 2% Vial) 5 ml STK-MED ONCE .ROUTE ; Start 07/28/18 at 05:36; Stop 07/28/18 at 05:37; Status DC Dexamethasone Sodium Phosphate (Decadron) 4 mg STK-MED ONCE .ROUTE ; Start 07/28/18 at 05:36; Stop 07/28/18 at 05:37; Status DC Ondansetron HCl (Zofran) 4 mg STK-MED ONCE .ROUTE ; Start 07/28/18 at 05:36; Stop 07/28/18 at 05:37; Status DC Succinylcholine Chloride (Anectine) 200 mg STK-MED ONCE .ROUTE ; Start 07/28/18 at 05:37; Stop 07/28/18 at 05:38; Status DC Fentanyl Citrate (Fentanyl 2ml Vial) 100 mcg STK-MED ONCE .ROUTE ; Start 07/28/18 at 06:50; Stop 07/28/18 at 06:51; Status DC Hydralazine HCl (Apresoline Inj) 20 mg STK-MED ONCE .ROUTE ; Start 07/28/18 at 07:11; Stop 07/28/18 at 07:12; Status DC Pantoprazole Sodium (PROTONIX VIAL for IV PUSH) 40 mg BID IVP Last administered on 08/01/18at 08:58; Start 07/28/18 at 09:00 Sevoflurane (Ultane) 60 ml STK-MED ONCE IH ; Start 07/28/18 at 07:22; Stop 07/28/18 at 07:23; Status DC Fentanyl Citrate (Fentanyl 2ml Vial) 100 mcg STK-MED ONCE .ROUTE ; Start 07/28/18 at 08:00; Stop 07/28/18 at 08:01; Status DC Ondansetron HCl (Zofran) 4 mg PRN Q6HRS PRN IV NAUSEA/VOMITING 1ST CHOICE; Start 07/28/18 at 08:30 Morphine Sulfate (Morphine Sulfate) 2 mg PRN Q2HR PRN IV PAIN Last administered on 07/28/18at 09:14; Start 07/28/18 at 08:30; Stop 07/28/18 at 10:05; Status DC Ringer's Solution 1,000 ml @ 75 mls/hr [id number] IV Last administered on 07/29/18at 21:48; Start 07/28/18 at 05:50; Stop 07/30/18 at 08:45; Status DC Morphine Sulfate (Morphine Sulfate) 4 mg PRN Q2HR PRN IV MODERATE TO SEVERE PAIN Last administered on 08/01/18at 07:37; Start 07/28/18 at 10:15 Pantoprazole Sodium (PROTONIX VIAL for IV PUSH) 40 mg 1X ONCE IVP ; Start 07/28/18 at 10:15; Stop 07/28/18 at 10:16; Status DC Pantoprazole Sodium (PROTONIX VIAL for IV PUSH) 40 mg DAILYAC IVP ; Start 07/29/18 at 07:30; Stop 07/29/18 at 07:30; Status DC Enoxaparin Sodium (Lovenox 40mg Syringe) 40 mg Q24H SQ Last administered on 07/31/18at 11:04; Start 07/28/18 at 11:00 Multivitamins 10 ml/Thiamine HCl 100 mg/Folic Acid 1 mg/Sodium Chloride 1,011.2 ml @ 1,000.088 mls/hr DAILY IV Last administered on 08/01/18at 08:59; Start 07/28/18 at 11:00; Stop 08/02/18 at 10:59 Lorazepam (Ativan Inj) 1 mg PRN Q4HRS PRN IV ANXIETY / AGITATION Last administered on 07/28/18at 21:16; Start 07/28/18 at 10:15 Info (Tpn Per Pharmacy) 1 each PRN DAILY PRN MC SEE COMMENTS Last administered on 07/29/18at 12:51; Start 07/29/18 at 09:30; Stop 07/29/18 at 21:38; Status DC Sodium Chloride 90 meq/Potassium Chloride 50 meq/ Potassium Phosphate 13.6 mmol/Magnesium Sulfate 10 meq/ Calcium Gluconate 10 meq/ Multivitamins 10 ml/Chromium/ Copper/Manganese/ Seleni/Zn 1 ml/ Total Parenteral Nutrition/Amino Acids/Dextrose/ Fat Emulsion Intravenous 1,512 ml @ 63 mls/hr TPN CONT IV ; Start 07/29/18 at 22:00; Stop 07/29/18 at 22:00; Status DC Nicotine (Nicoderm Cq 21mg) 1 patch PRN DAILY PRN TD SMOKING CESSATION Last administered on 07/30/18at 11:04; Start 07/29/18 at 15:15 Amino Acids/ Glycerin/ Electrolytes 1,000 ml @ 80 mls/hr [id number] IV Last administered on 07/31/18at 23:37; Start 07/29/18 at 22:00 Metoprolol Tartrate (Lopressor Vial) 5 mg PRN Q6HRS PRN IVP HYPERTENSION; Start 07/30/18 at 11:30 Enalaprilat (Vasotec Inj) 1.25 mg PRN Q6HRS PRN IVP HYPERTENSION; Start 07/30/18 at 11:30 Active Scripts Active Reported No Known Medications Prior To Admisstion (Info) Each 1 Each MC 1X Vitals/I & O Vital Sign - Last 24 Hours 07/31/18 07/31/18 07/31/1813/19 11:00 15:00 19:00 20:00 Temp 98.5 98.6 99.6 98.5 98.6 99.6 Pulse 101 107 105 Resp 18 18 16 B/P (MAP) 134/92 (106) 125/81 (96) 138/94 (109) Pulse Ox 96 98 97 O2 Delivery Room Air Room Air Room Air Room Air 07/31/18 08/01/18 08/01/18 08/01/18 23:00 03:00 07:00 07:37 Temp 97.7 98.1 97.7 98.1 Pulse 100 104 109 Resp 16 16 16 18 B/P (MAP) 132/86 (101) 146/93 (110) 143/90 (107) Pulse Ox 97 97 98 O2 Delivery Room Air Room Air Room Air 08/01/18 08:07 Resp 18 O2 Delivery Room Air Intake and Output 07/31/18 07/31/18 08/01/18 15:00 23:00 07:00 Intake Total 750 ml 1090 ml Output Total 550 ml 1250 ml 1700 ml Balance 200 ml -160 ml -1700 ml RAVI GODINEZ MD Aug 01, 2018 09:38
--- NOTE | 2018-08-01 10:19 | PDOC ---
SURGICAL PROGRESS NOTE Subjective Patient doing well does complain of burning at the Shafer catheter site would like more to eat Vital Signs Vital Signs Date Time Temp Pulse Resp B/P (MAP) Pulse Ox O2 Delivery O2 Flow Rate FiO2 08/01/18 08:07 18 Room Air 08/01/18 07:00 98.1 109 143/90 (107) 98 98.1 07/31/18 08:00 8.0 I&O Intake and Output 08/01/18 07:00 Intake Total 1840 ml Output Total 3500 ml Balance -1660 ml Intake Oral 1740 ml IV Total 100 ml Output Urine Total 3500 ml PATIENT HAS A SHAFER: Yes General: Alert, Oriented X3, Cooperative, mild distress Abdomen: Normal bowel sounds, Soft, Other (mild incisional tenderness) Labs Laboratory Tests Test 07/31/18 03:25 08/01/18 04:50 Sodium Level 139 mmol/L (136-145) 136 mmol/L (136-145) Potassium Level 4.0 mmol/L (3.5-5.1) 5.0 mmol/L (3.5-5.1) Chloride Level 101 mmol/L (98-107) 102 mmol/L (98-107) Carbon Dioxide Level 29 mmol/L (21-32) 28 mmol/L (21-32) Anion Gap 9 (6-14) 6 (6-14) Blood Urea Nitrogen 14 mg/dL (8-26) 14 mg/dL (8-26) Creatinine 0.8 mg/dL (0.7-1.3) 0.6 mg/dL (0.7-1.3) Estimated GFR (Cockcroft-Gault) 119.3 166.3 Glucose Level 98 mg/dL (70-99) 112 mg/dL (70-99) Calcium Level 8.9 mg/dL (8.5-10.1) 8.5 mg/dL (8.5-10.1) Phosphorus Level 3.1 mg/dL (2.6-4.7) 3.2 mg/dL (2.6-4.7) Magnesium Level 2.1 mg/dL (1.8-2.4) 2.3 mg/dL (1.8-2.4) Laboratory Tests Test 08/01/18 04:50 Sodium Level 136 mmol/L (136-145) Potassium Level 5.0 mmol/L (3.5-5.1) Chloride Level 102 mmol/L (98-107) Carbon Dioxide Level 28 mmol/L (21-32) Anion Gap 6 (6-14) Blood Urea Nitrogen 14 mg/dL (8-26) Creatinine 0.6 mg/dL (0.7-1.3) Estimated GFR (Cockcroft-Gault) 166.3 Glucose Level 112 mg/dL (70-99) Calcium Level 8.5 mg/dL (8.5-10.1) Phosphorus Level 3.2 mg/dL (2.6-4.7) Magnesium Level 2.3 mg/dL (1.8-2.4) Problem List Problems Medical Problems: (1) Abdominal pain Status: Acute (2) Perforated abdominal viscus Status: Acute Assessment/Plan Status post perforated duodenal ulcer Advance diet to full liquids Okay to remove Shafer catheter from surgical standpoint Supportive care RAVI TERRY MD Aug 01, 2018 10:19
--- NOTE | 2018-08-01 10:52 | NUR ---
Hanks catheter discontinued after procedure explained to patient, dc without difficulty and patient tolerated without any discomfort. Patient verb. understanding I&O, urinal at bedside. continue cares and monitor.
[2018-08-01 11:00] VITALS: BP 139/93
[2018-08-01] MEDS: ENOXAPARIN 40 MG/0.4 ML SYRINGE. SQ SCH (11:05)
[2018-08-01] MEDS: AMINO AC 3%/ELECTROLYTE/GLYCER 1,000 ML IV SCH ×2 (12:30→22:22)
--- NOTE | 2018-08-01 12:35 | NUR ---
PPN on hold while banana bag infusing after checking with pharmacy to hold while current infusion infusing. See IV flowsheet.
[2018-08-01 15:03] VITALS: BP 124/97
[2018-08-01 19:00] VITALS: BP 122/86
[2018-08-01] MEDS: LACTOBACILLUS RHAMNOSUS GG 1 CAPSULE. PO SCH (21:19)
[2018-08-01 23:00] VITALS: BP 139/90
[2018-08-02] MEDS: MORPHINE SULFATE 4 MG/ML VIAL. IV PRN (02:09)
[2018-08-02 03:00] VITALS: BP 128/89
[2018-08-02 04:43] LABS: BASO % 1 % (0-3); EOS # 0.1 x10^3/uL (0.0-0.7); EOS % 3 % (0-3); HEMATOCRIT 41.5 % (39.0-53.0); LYMPH # 1.5 x10^3/uL (1.0-4.8); LYMPH % 35 % (24-48); MEAN CORPUSCULAR HEMOGLOBIN 28 pg (25-35); MEAN CORPUSCULAR HGB CONC 34 g/dL (31-37); MEAN CORPUSCULAR VOLUME 83 fL (79-100); MONO # 0.3 x10^3/uL (0.0-1.1); MONO % 8 % (0-9); NEUT # 2.3 x10^3uL (1.8-7.7); NEUT % 53 % (31-73); PLATELET COUNT 142 x10^3/uL (140-400); RED BLOOD COUNT 4.99 x10^6/uL (4.30-5.70); RED CELL DISTRIBUTION WIDTH 13.7 % (11.5-14.5); WHITE BLOOD COUNT 4.4 x10^3/uL (4.0-11.0)
[2018-08-02 05:30] LABS: CALCIUM 8.5 mg/dL (8.5-10.1); CREATININE 0.8 mg/dL (0.7-1.3); GFR 119.3; POTASSIUM 4.2 mmol/L (3.5-5.1)
[2018-08-02] MEDS: MEROPENEM 1 GM in IV NORMAL SALINE 100ML 100 ML IV SCH ×3 (06:10→21:00)
--- NOTE | 2018-08-02 07:44 | NUR ---
Pt refusing morning vitals. Refused PPN. Has been loud and rude to staff. Will attempt to discuss issue with pt at a later time. Will continue to monitor.
[2018-08-02] MEDS: MULTIVIT INFUSN,ADULT 4,VIT K 10 ML, THIAMINE INJ 100 MG, FOLIC ACID INJ 1 MG in IV NOR... IV SCH (08:02)
[2018-08-02] MEDS: PANTOPRAZOLE IV PUSH 40 MG VIAL. IVP SCH ×2 (08:03→21:00)
[2018-08-02] MEDS: LACTOBACILLUS RHAMNOSUS GG 1 CAPSULE. PO SCH ×2 (08:03→21:00)
--- NOTE | 2018-08-02 09:42 | PDOC ---
SURGICAL PROGRESS NOTE Subjective no new complaints adequate pain control Vital Signs Vital Signs Date Time Temp Pulse Resp B/P (MAP) Pulse Ox O2 Delivery O2 Flow Rate FiO2 08/02/18 03:00 98.7 92 18 128/89 (102) 98 Room Air 98.7 I&O Intake and Output 08/02/18 07:00 Intake Total 260 ml Output Total 2800 ml Balance -2540 ml Intake Oral 60 ml IV Total 200 ml Output Urine Total 2800 ml PATIENT HAS A SHAFER: No General: Alert, No acute distress Abdomen: Soft Labs Laboratory Tests Test 08/01/18 04:50 08/02/18 03:45 Sodium Level 136 mmol/L (136-145) 141 mmol/L (136-145) Potassium Level 5.0 mmol/L (3.5-5.1) 4.2 mmol/L (3.5-5.1) Chloride Level 102 mmol/L (98-107) 104 mmol/L (98-107) Carbon Dioxide Level 28 mmol/L (21-32) 30 mmol/L (21-32) Anion Gap 6 (6-14) 7 (6-14) Blood Urea Nitrogen 14 mg/dL (8-26) 13 mg/dL (8-26) Creatinine 0.6 mg/dL (0.7-1.3) 0.8 mg/dL (0.7-1.3) Estimated GFR (Cockcroft-Gault) 166.3 119.3 Glucose Level 112 mg/dL (70-99) 96 mg/dL (70-99) Calcium Level 8.5 mg/dL (8.5-10.1) 8.5 mg/dL (8.5-10.1) Phosphorus Level 3.2 mg/dL (2.6-4.7) Magnesium Level 2.3 mg/dL (1.8-2.4) White Blood Count 4.4 x10^3/uL (4.0-11.0) Red Blood Count 4.99 x10^6/uL (4.30-5.70) Hemoglobin 14.0 g/dL (13.0-17.5) Hematocrit 41.5 % (39.0-53.0) Mean Corpuscular Volume 83 fL (79-100) Mean Corpuscular Hemoglobin 28 pg (25-35) Mean Corpuscular Hemoglobin Concent 34 g/dL (31-37) Red Cell Distribution Width 13.7 % (11.5-14.5) Platelet Count 142 x10^3/uL (140-400) Neutrophils (%) (Auto) 53 % (31-73) Lymphocytes (%) (Auto) 35 % (24-48) Monocytes (%) (Auto) 8 % (0-9) Eosinophils (%) (Auto) 3 % (0-3) Basophils (%) (Auto) 1 % (0-3) Neutrophils # (Auto) 2.3 x10^3uL (1.8-7.7) Lymphocytes # (Auto) 1.5 x10^3/uL (1.0-4.8) Monocytes # (Auto) 0.3 x10^3/uL (0.0-1.1) Eosinophils # (Auto) 0.1 x10^3/uL (0.0-0.7) Basophils # (Auto) 0.0 x10^3/uL (0.0-0.2) Laboratory Tests Test 08/02/18 03:45 White Blood Count 4.4 x10^3/uL (4.0-11.0) Red Blood Count 4.99 x10^6/uL (4.30-5.70) Hemoglobin 14.0 g/dL (13.0-17.5) Hematocrit 41.5 % (39.0-53.0) Mean Corpuscular Volume 83 fL (79-100) Mean Corpuscular Hemoglobin 28 pg (25-35) Mean Corpuscular Hemoglobin Concent 34 g/dL (31-37) Red Cell Distribution Width 13.7 % (11.5-14.5) Platelet Count 142 x10^3/uL (140-400) Neutrophils (%) (Auto) 53 % (31-73) Lymphocytes (%) (Auto) 35 % (24-48) Monocytes (%) (Auto) 8 % (0-9) Eosinophils (%) (Auto) 3 % (0-3) Basophils (%) (Auto) 1 % (0-3) Neutrophils # (Auto) 2.3 x10^3uL (1.8-7.7) Lymphocytes # (Auto) 1.5 x10^3/uL (1.0-4.8) Monocytes # (Auto) 0.3 x10^3/uL (0.0-1.1) Eosinophils # (Auto) 0.1 x10^3/uL (0.0-0.7) Basophils # (Auto) 0.0 x10^3/uL (0.0-0.2) Sodium Level 141 mmol/L (136-145) Potassium Level 4.2 mmol/L (3.5-5.1) Chloride Level 104 mmol/L (98-107) Carbon Dioxide Level 30 mmol/L (21-32) Anion Gap 7 (6-14) Blood Urea Nitrogen 13 mg/dL (8-26) Creatinine 0.8 mg/dL (0.7-1.3) Estimated GFR (Cockcroft-Gault) 119.3 Glucose Level 96 mg/dL (70-99) Calcium Level 8.5 mg/dL (8.5-10.1) Problem List Problems Medical Problems: (1) Abdominal pain Status: Acute (2) Perforated abdominal viscus Status: Acute Assessment/Plan POD 5 closure perforated ulcer home on PPI's when released CHANG FIORE MD Aug 02, 2018 09:42
--- NOTE | 2018-08-02 10:18 | NUR ---
Reported to this typewriter tester: Security was up to discuss compliance and cooperation with pt. Pt has since requested to re-start PPN. PPN restarted. Will continue to monitor.
--- NOTE | 2018-08-02 10:21 | PDOC ---
PROGRESS NOTES Chief Complaint Chief Complaint s/p POD # 6 Exploratory laparotomy, primary repair of perforated pyloric channel ulcer with omental patch - 19 alcoholism Positive amphetamine and cocaine use-UDS in the system History of perforated appendix distant past Status post perforated duodenal ulcer, irritable 08/01 33 min pt exam, chart review, > 50% of time spent with exam, chart review, pt care coordination History of Present Illness History of Present Illness Postop day #5 NG x 4 days, out today 07/31/2018 Working with therapy today, need some assistance GS notes indicates possible clears today ProcalAmine Plan: cont ProcalAmine WITHDRAWAL PRECAUTIONS Continue PT OT 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 Vital Signs Date Time Temp Pulse Resp B/P (MAP) Pulse Ox O2 Delivery O2 Flow Rate FiO2 08/02/18 03:00 98.7 92 18 128/89 (102) 98 Room Air 98.7 Physical Exam General: Alert, No acute distress Heart: Regular rate, Normal S1, Normal S2 Lungs: Clear Abdomen: Soft Extremities: No clubbing, No cyanosis Skin: No rashes, No breakdown, No significant lesion Labs LABS Laboratory Tests Test 08/02/18 03:45 White Blood Count 4.4 x10^3/uL (4.0-11.0) Red Blood Count 4.99 x10^6/uL (4.30-5.70) Hemoglobin 14.0 g/dL (13.0-17.5) Hematocrit 41.5 % (39.0-53.0) Mean Corpuscular Volume 83 fL (79-100) Mean Corpuscular Hemoglobin 28 pg (25-35) Mean Corpuscular Hemoglobin Concent 34 g/dL (31-37) Red Cell Distribution Width 13.7 % (11.5-14.5) Platelet Count 142 x10^3/uL (140-400) Neutrophils (%) (Auto) 53 % (31-73) Lymphocytes (%) (Auto) 35 % (24-48) Monocytes (%) (Auto) 8 % (0-9) Eosinophils (%) (Auto) 3 % (0-3) Basophils (%) (Auto) 1 % (0-3) Neutrophils # (Auto) 2.3 x10^3uL (1.8-7.7) Lymphocytes # (Auto) 1.5 x10^3/uL (1.0-4.8) Monocytes # (Auto) 0.3 x10^3/uL (0.0-1.1) Eosinophils # (Auto) 0.1 x10^3/uL (0.0-0.7) Basophils # (Auto) 0.0 x10^3/uL (0.0-0.2) Sodium Level 141 mmol/L (136-145) Potassium Level 4.2 mmol/L (3.5-5.1) Chloride Level 104 mmol/L (98-107) Carbon Dioxide Level 30 mmol/L (21-32) Anion Gap 7 (6-14) Blood Urea Nitrogen 13 mg/dL (8-26) Creatinine 0.8 mg/dL (0.7-1.3) Estimated GFR (Cockcroft-Gault) 119.3 Glucose Level 96 mg/dL (70-99) Calcium Level 8.5 mg/dL (8.5-10.1) Assessment and Plan Assessmemt and Plan Problems Medical Problems: (1) Abdominal pain Status: Acute (2) Perforated abdominal viscus Status: Acute Comment Review of Relevant I have reviewed the following items steph (where applicable) has been applied. Labs Laboratory Tests Test 08/01/18 04:50 08/02/18 03:45 Sodium Level 136 mmol/L (136-145) 141 mmol/L (136-145) Potassium Level 5.0 mmol/L (3.5-5.1) 4.2 mmol/L (3.5-5.1) Chloride Level 102 mmol/L (98-107) 104 mmol/L (98-107) Carbon Dioxide Level 28 mmol/L (21-32) 30 mmol/L (21-32) Anion Gap 6 (6-14) 7 (6-14) Blood Urea Nitrogen 14 mg/dL (8-26) 13 mg/dL (8-26) Creatinine 0.6 mg/dL (0.7-1.3) 0.8 mg/dL (0.7-1.3) Estimated GFR (Cockcroft-Gault) 166.3 119.3 Glucose Level 112 mg/dL (70-99) 96 mg/dL (70-99) Calcium Level 8.5 mg/dL (8.5-10.1) 8.5 mg/dL (8.5-10.1) Phosphorus Level 3.2 mg/dL (2.6-4.7) Magnesium Level 2.3 mg/dL (1.8-2.4) White Blood Count 4.4 x10^3/uL (4.0-11.0) Red Blood Count 4.99 x10^6/uL (4.30-5.70) Hemoglobin 14.0 g/dL (13.0-17.5) Hematocrit 41.5 % (39.0-53.0) Mean Corpuscular Volume 83 fL (79-100) Mean Corpuscular Hemoglobin 28 pg (25-35) Mean Corpuscular Hemoglobin Concent 34 g/dL (31-37) Red Cell Distribution Width 13.7 % (11.5-14.5) Platelet Count 142 x10^3/uL (140-400) Neutrophils (%) (Auto) 53 % (31-73) Lymphocytes (%) (Auto) 35 % (24-48) Monocytes (%) (Auto) 8 % (0-9) Eosinophils (%) (Auto) 3 % (0-3) Basophils (%) (Auto) 1 % (0-3) Neutrophils # (Auto) 2.3 x10^3uL (1.8-7.7) Lymphocytes # (Auto) 1.5 x10^3/uL (1.0-4.8) Monocytes # (Auto) 0.3 x10^3/uL (0.0-1.1) Eosinophils # (Auto) 0.1 x10^3/uL (0.0-0.7) Basophils # (Auto) 0.0 x10^3/uL (0.0-0.2) Laboratory Tests Test 08/02/18 03:45 White Blood Count 4.4 x10^3/uL (4.0-11.0) Red Blood Count 4.99 x10^6/uL (4.30-5.70) Hemoglobin 14.0 g/dL (13.0-17.5) Hematocrit 41.5 % (39.0-53.0) Mean Corpuscular Volume 83 fL (79-100) Mean Corpuscular Hemoglobin 28 pg (25-35) Mean Corpuscular Hemoglobin Concent 34 g/dL (31-37) Red Cell Distribution Width 13.7 % (11.5-14.5) Platelet Count 142 x10^3/uL (140-400) Neutrophils (%) (Auto) 53 % (31-73) Lymphocytes (%) (Auto) 35 % (24-48) Monocytes (%) (Auto) 8 % (0-9) Eosinophils (%) (Auto) 3 % (0-3) Basophils (%) (Auto) 1 % (0-3) Neutrophils # (Auto) 2.3 x10^3uL (1.8-7.7) Lymphocytes # (Auto) 1.5 x10^3/uL (1.0-4.8) Monocytes # (Auto) 0.3 x10^3/uL (0.0-1.1) Eosinophils # (Auto) 0.1 x10^3/uL (0.0-0.7) Basophils # (Auto) 0.0 x10^3/uL (0.0-0.2) Sodium Level 141 mmol/L (136-145) Potassium Level 4.2 mmol/L (3.5-5.1) Chloride Level 104 mmol/L (98-107) Carbon Dioxide Level 30 mmol/L (21-32) Anion Gap 7 (6-14) Blood Urea Nitrogen 13 mg/dL (8-26) Creatinine 0.8 mg/dL (0.7-1.3) Estimated GFR (Cockcroft-Gault) 119.3 Glucose Level 96 mg/dL (70-99) Calcium Level 8.5 mg/dL (8.5-10.1) Microbiology 07/28/18 Blood Culture - Final, Complete NO GROWTH AFTER 5 DAYS 07/28/18 Urine Culture - Final, Complete 07/28/18 Urine Culture Result 1 (REE) - Final, Complete Medications Current Medications Fentanyl Citrate (Fentanyl 2ml Vial) 50 mcg PRN Q15MIN PRN IV PAIN GREATER THAN 3/10 Last administered on 07/28/18at 08:30; Start 07/27/18 at 20:15; Stop 07/28/18 at 20:14; Status DC Sodium Chloride 1,000 ml @ 1,000 mls/hr Q1H IV Last administered on 07/27/18at 20:29; Start 07/27/18 at 20:06; Stop 07/27/18 at 21:05; Status DC Ondansetron HCl (Zofran) 4 mg 1X ONCE IV Last administered on 07/27/18at 20:29; Start 07/27/18 at 20:15; Stop 07/27/18 at 20:19; Status DC Iohexol (Omnipaque 300 Mg/ml) 75 ml 1X ONCE IV Last administered on 07/27/18at 21:05; Start 07/27/18 at 21:00; Stop 07/27/18 at 21:01; Status DC Meropenem 1 gm/ Sodium Chloride 100 ml @ 200 mls/hr Q8HRS IV Last administered on 08/02/18at 06:10; Start 07/27/18 at 22:30 Ondansetron HCl (Zofran) 4 mg PRN Q8HRS PRN IV NAUSEA/VOMITING 1ST CHOICE; Start 07/27/18 at 22:15; Stop 07/28/18 at 08:29; Status DC Fentanyl Citrate (Fentanyl 2ml Vial) 50 mcg PRN Q1HR PRN IV SEVERE PAIN Last administered on 07/28/18at 05:46; Start 07/27/18 at 22:15; Stop 07/28/18 at 08:30; Status DC Sodium Chloride 1,000 ml @ 125 mls/hr Q8H IV Last administered on 07/28/18at 18:15; Start 07/27/18 at 22:30; Stop 07/28/18 at 22:29; Status DC Methylprednisolone Sodium Succinate (SOLU-Medrol 125MG VIAL) 125 mg 1X ONCE IV Last administered on 07/27/18at 22:28; Start 07/27/18 at 23:00; Stop 07/27/18 at 23:01; Status DC Diphenhydramine HCl (Benadryl) 25 mg 1X ONCE IVP Last administered on 07/27/18at 22:29; Start 07/27/18 at 23:00; Stop 07/27/18 at 23:01; Status DC Cefazolin Sodium/ Dextrose 50 ml @ 100 mls/hr PREOP PRN PRN IV PREOP Last administered on 07/28/18at 06:05; Start 07/28/18 at 05:30; Stop 07/29/18 at 05:30; Status DC Metronidazole 100 ml @ 100 mls/hr PREOP PRN PRN IV PREOP Last administered on 07/28/18at 06:20; Start 07/28/18 at 05:30; Stop 07/29/18 at 05:30; Status DC Sevoflurane (Ultane) 90 ml STK-MED ONCE IH ; Start 07/28/18 at 05:34; Stop 07/28/18 at 05:35; Status DC Midazolam HCl (Versed) 2 mg STK-MED ONCE .ROUTE ; Start 07/28/18 at 05:35; Stop 07/28/18 at 05:36; Status DC Fentanyl Citrate (Fentanyl 2ml Vial) 100 mcg STK-MED ONCE .ROUTE ; Start 07/28/18 at 05:35; Stop 07/28/18 at 05:36; Status DC Rocuronium [place] (Zemuron) 100 mg STK-MED ONCE .ROUTE ; Start 07/28/18 at 05:35; Stop 07/28/18 at 05:36; Status DC Glycopyrrolate (Robinul) 1 mg STK-MED ONCE .ROUTE ; Start 07/28/18 at 05:35; Stop 07/28/18 at 05:36; Status DC Neostigmine Methylsulfate (Neostigmine Methylsulfate) 5 mg STK-MED ONCE .ROUTE ; Start 07/28/18 at 05:36; Stop 07/28/18 at 05:37; Status DC Propofol 20 ml @ As Directed STK-MED ONCE IV ; Start 07/28/18 at 05:36; Stop 07/28/18 at 05:37; Status DC Lidocaine HCl (Lidocaine Pf 2% Vial) 5 ml STK-MED ONCE .ROUTE ; Start 07/28/18 at 05:36; Stop 07/28/18 at 05:37; Status DC Dexamethasone Sodium Phosphate (Decadron) 4 mg STK-MED ONCE .ROUTE ; Start 07/28/18 at 05:36; Stop 07/28/18 at 05:37; Status DC Ondansetron HCl (Zofran) 4 mg STK-MED ONCE .ROUTE ; Start 07/28/18 at 05:36; Stop 07/28/18 at 05:37; Status DC Succinylcholine Chloride (Anectine) 200 mg STK-MED ONCE .ROUTE ; Start 07/28/18 at 05:37; Stop 07/28/18 at 05:38; Status DC Fentanyl Citrate (Fentanyl 2ml Vial) 100 mcg STK-MED ONCE .ROUTE ; Start 07/28/18 at 06:50; Stop 07/28/18 at 06:51; Status DC Hydralazine HCl (Apresoline Inj) 20 mg STK-MED ONCE .ROUTE ; Start 07/28/18 at 07:11; Stop 07/28/18 at 07:12; Status DC Pantoprazole Sodium (PROTONIX VIAL for IV PUSH) 40 mg BID IVP Last administered on 08/01/18at 21:19; Start 07/28/18 at 09:00 Sevoflurane (Ultane) 60 ml STK-MED ONCE IH ; Start 07/28/18 at 07:22; Stop 07/28/18 at 07:23; Status DC Fentanyl Citrate (Fentanyl 2ml Vial) 100 mcg STK-MED ONCE .ROUTE ; Start 07/28/18 at 08:00; Stop 07/28/18 at 08:01; Status DC Ondansetron HCl (Zofran) 4 mg PRN Q6HRS PRN IV NAUSEA/VOMITING 1ST CHOICE; Start 07/28/18 at 08:30 Morphine Sulfate (Morphine Sulfate) 2 mg PRN Q2HR PRN IV PAIN Last administered on 07/28/18at 09:14; Start 07/28/18 at 08:30; Stop 07/28/18 at 10:05; Status DC Ringer's Solution 1,000 ml @ 75 mls/hr [id number] IV Last administered on 07/29/18at 21:48; Start 07/28/18 at 05:50; Stop 07/30/18 at 08:45; Status DC Morphine Sulfate (Morphine Sulfate) 4 mg PRN Q2HR PRN IV MODERATE TO SEVERE PAIN Last administered on 08/02/18at 02:09; Start 07/28/18 at 10:15 Pantoprazole Sodium (PROTONIX VIAL for IV PUSH) 40 mg 1X ONCE IVP ; Start at 10:15; Stop 07/28/18 at 10:16; Status DC Pantoprazole Sodium (PROTONIX VIAL for IV PUSH) 40 mg DAILYAC IVP ; Start at 07:30; Stop 07/29/18 at 07:30; Status DC Enoxaparin Sodium (Lovenox 40mg Syringe) 40 mg Q24H SQ Last administered on 08/01/18at 11:05; Start 07/28/18 at 11:00 Multivitamins 10 ml/Thiamine HCl 100 mg/Folic Acid 1 mg/Sodium Chloride 1,011.2 ml @ 1,000.088 mls/hr DAILY IV Last administered on 08/01/18at 08:59; Start 07/28/18 at 11:00; Stop 08/02/18 at 10:59 Lorazepam (Ativan Inj) 1 mg PRN Q4HRS PRN IV ANXIETY / AGITATION Last administered on 07/28/18at 21:16; Start 07/28/18 at 10:15 Info (Tpn Per Pharmacy) 1 each PRN DAILY PRN MC SEE COMMENTS Last administered on 07/29/18at 12:51; Start 07/29/18 at 09:30; Stop 07/29/18 at 21:38; Status DC Sodium Chloride 90 meq/Potassium Chloride 50 meq/ Potassium Phosphate 13.6 mmol/Magnesium Sulfate 10 meq/ Calcium Gluconate 10 meq/ Multivitamins 10 ml/Chromium/ Copper/Manganese/ Seleni/Zn 1 ml/ Total Parenteral Nutrition/Amino Acids/Dextrose/ Fat Emulsion Intravenous 1,512 ml @ 63 mls/hr TPN CONT IV ; Start 07/29/18 at 22:00; Stop 07/29/18 at 22:00; Status DC Nicotine (Nicoderm Cq 21mg) 1 patch PRN DAILY PRN TD SMOKING CESSATION Last administered on 07/30/18at 11:04; Start 07/29/18 at 15:15 Amino Acids/ Glycerin/ Electrolytes 1,000 ml @ 80 mls/hr [id number] IV Last administered on 08/01/18at 22:22; Start 07/29/18 at 22:00 Metoprolol Tartrate (Lopressor Vial) 5 mg PRN Q6HRS PRN IVP HYPERTENSION; Start 07/30/18 at 11:30 Enalaprilat (Vasotec Inj) 1.25 mg PRN Q6HRS PRN IVP HYPERTENSION; Start 07/30/18 at 11:30 Lactobacillus Rhamnosus (Culturelle) 1 cap BID PO Last administered on 08/01/18at 21:19; Start 08/01/18 at 21:00 Active Scripts Active Reported No Known Medications Prior To Admisstion (Info) Each 1 Each 1X Vitals/I & O Vital Sign - Last 24 Hours 08/01/18 08/01/18 08/01/18 08/01/18 10:43 11:00 13:33 14:03 Temp 98.2 98.2 Pulse 102 Resp 18 16 18 18 B/P (MAP) 139/93 (108) Pulse Ox 99 O2 Delivery Room Air 08/01/18 08/01/18 08/01/18 08/01/18 15:03 19:00 20:00 23:00 Temp 98.0 98.7 99.2 98.0 98.7 99.2 Pulse 99 96 97 Resp 16 18 18 B/P (MAP) 124/97 (106) 122/86 (98) 139/90 (106) Pulse Ox 97 99 97 O2 Delivery Room Air Room Air Room Air Room Air 08/02/18 08/02/18 02:39 03:00 Temp 98.7 98.7 Pulse 92 Resp 18 B/P (MAP) 128/89 (102) Pulse Ox 98 O2 Delivery Room Air Room Air Intake and Output 08/01/18 08/01/18 08/02/18 15:00 23:00 07:00 Intake Total 100 ml 100 ml 60 ml Output Total 1200 ml 200 ml 1400 ml Balance -1100 ml -100 ml -1340 ml RAVI GODINEZ MD Aug 02, 2018 10:21
[2018-08-02 11:00] VITALS: BP 142/89
[2018-08-02] MEDS: ENOXAPARIN 40 MG/0.4 ML SYRINGE. SQ SCH (12:34)
[2018-08-02] MEDS: AMINO AC 3%/ELECTROLYTE/GLYCER 1,000 ML IV SCH (12:36)
--- NOTE | 2018-08-02 14:37 | NUR ---
Discussion w/ pt, verbalized concerns and frustrations. States he has been here many days w/o a breath of fresh air and is "going crazy". States he is ready to eat, has been tolerating full liquid diet just fine. Denies bowel movement, passing gas, denies abd pain. Pt iv infiltrated, IV d/c'd, pt asked to go for a walk outside. Pt allowed to do so. Stated he felt so much better after getting to take in some fresh air. Pt cleaned self in bathroom on his own. Linens changed, new gown and hygiene products provided. Pt requested to eat a tuna sandwich. Pt tolerating food just fine. Pt is now resting w/ eyes closed. Will start a new IV when pt is up next. Will continue to monitor.
[2018-08-02 19:00] VITALS: BP 108/62
[2018-08-02 23:00] VITALS: BP 112/69
[2018-08-03] MEDS: MORPHINE SULFATE 4 MG/ML VIAL. IV PRN (01:26)
[2018-08-03] MEDS: AMINO AC 3%/ELECTROLYTE/GLYCER 1,000 ML IV SCH ×2 (02:00→08:33)
[2018-08-03 03:03] VITALS: BP 119/72
[2018-08-03] MEDS: MEROPENEM 1 GM in IV NORMAL SALINE 100ML 100 ML IV SCH (04:21)
[2018-08-03 07:00] VITALS: BP 124/81
[2018-08-03] MEDS: PANTOPRAZOLE IV PUSH 40 MG VIAL. IVP SCH (08:33)
[2018-08-03] MEDS: LACTOBACILLUS RHAMNOSUS GG 1 CAPSULE. PO SCH (08:33)
--- NOTE | 2018-08-03 09:00 | NUR ---
Patient agitated and verbally abusive toward staff because he could not go outside. Patient was told that he could not because he was hooked up to fluids and was a fall risk since he also had a walker. Nurse paste plant supervisor called and spoke to patient.
[2018-08-03 11:00] VITALS: BP 121/69
[2018-08-03] MEDS: ENOXAPARIN 40 MG/0.4 ML SYRINGE. SQ SCH (11:00)
--- NOTE | 2018-08-03 11:26 | PDOC ---
Provider Note Provider Note SURG Lui Flower po closure perforated ulcer taking diet stooling home today on PPI's OK from surgical standpoint f/u Dr Flower next week CHANG FIORE MD Aug 03, 2018 11:26
--- NOTE | 2018-08-03 11:50 | PDOC ---
PROGRESS NOTES Chief Complaint Chief Complaint s/p POD # 7 Exploratory laparotomy, primary repair of perforated pyloric channel ulcer with omental patch - alcoholism Positive amphetamine and cocaine use-UDS in the system History of perforated appendix distant past Status post perforated duodenal ulcer, irritable 08/01 angry at nurses, yelling at times 08/03 needs substance abuse counseling 36 min pt exam, chart review d/c planning , > 50% of time spent with exam, chart review, pt care coordination History of Present Illness History of Present Illness Postop day #5 NG x 4 days, out today 07/31/2018 Working with therapy today, need some assistance GS notes indicates possible clears today ProcalAmine Plan: cont ProcalAmine WITHDRAWAL PRECAUTIONS Continue PT OT 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 Signs Date Time Temp Pulse Resp B/P (MAP) Pulse Ox O2 Delivery O2 Flow Rate FiO2 08/03/18 08:00 Room Air 08/03/18 07:00 98.6 83 16 124/81 (95) 98 98.6 Physical Exam General: Alert, Oriented X3, No acute distress Heart: Regular rate, Normal S1, Normal S2 Lungs: Clear Abdomen: Normal bowel sounds, Soft Extremities: No clubbing, No cyanosis Skin: No rashes, No breakdown, No significant lesion Assessment and Plan Assessmemt and Plan Problems Medical Problems: (1) Abdominal pain Status: Acute (2) Perforated abdominal viscus Status: Acute Comment Review of Relevant I have reviewed the following items steph (where applicable) has been applied. Labs Laboratory Tests Test 08/02/18 03:45 White Blood Count 4.4 x10^3/uL (4.0-11.0) Red Blood Count 4.99 x10^6/uL (4.30-5.70) Hemoglobin 14.0 g/dL (13.0-17.5) Hematocrit 41.5 % (39.0-53.0) Mean Corpuscular Volume 83 fL (79-100) Mean Corpuscular Hemoglobin 28 pg (25-35) Mean Corpuscular Hemoglobin Concent 34 g/dL (31-37) Red Cell Distribution Width 13.7 % (11.5-14.5) Platelet Count 142 x10^3/uL (140-400) Neutrophils (%) (Auto) 53 % (31-73) Lymphocytes (%) (Auto) 35 % (24-48) Monocytes (%) (Auto) 8 % (0-9) Eosinophils (%) (Auto) 3 % (0-3) Basophils (%) (Auto) 1 % (0-3) Neutrophils # (Auto) 2.3 x10^3uL (1.8-7.7) Lymphocytes # (Auto) 1.5 x10^3/uL (1.0-4.8) Monocytes # (Auto) 0.3 x10^3/uL (0.0-1.1) Eosinophils # (Auto) 0.1 x10^3/uL (0.0-0.7) Basophils # (Auto) 0.0 x10^3/uL (0.0-0.2) Sodium Level 141 mmol/L (136-145) Potassium Level 4.2 mmol/L (3.5-5.1) Chloride Level 104 mmol/L (98-107) Carbon Dioxide Level 30 mmol/L (21-32) Anion Gap 7 (6-14) Blood Urea Nitrogen 13 mg/dL (8-26) Creatinine 0.8 mg/dL (0.7-1.3) Estimated GFR (Cockcroft-Gault) 119.3 Glucose Level 96 mg/dL (70-99) Calcium Level 8.5 mg/dL (8.5-10.1) Microbiology 07/28/18 Blood Culture - Final, Complete NO GROWTH AFTER 5 DAYS 07/28/18 Urine Culture - Final, Complete 07/28/18 Urine Culture Result 1 (REE) - Final, Complete Medications Current Medications Fentanyl Citrate (Fentanyl 2ml Vial) 50 mcg PRN Q15MIN PRN IV PAIN GREATER THAN 3/10 Last administered on 07/28/18at 08:30; Start 07/27/18 at 20:15; Stop 07/28/18 at 20:14; Status DC Sodium Chloride 1,000 ml @ 1,000 mls/hr Q1H IV Last administered on 07/27/18at 20:29; Start 07/27/18 at 20:06; Stop 07/27/18 at 21:05; Status DC Ondansetron HCl (Zofran) 4 mg 1X ONCE IV Last administered on 07/27/18at 20:29; Start 07/27/18 at 20:15; Stop 07/27/18 at 20:19; Status DC Iohexol (Omnipaque 300 Mg/ml) 75 ml 1X ONCE IV Last administered on 07/27/18at 21:05; Start 07/27/18 at 21:00; Stop 07/27/18 at 21:01; Status DC Meropenem 1 gm/ Sodium Chloride 100 ml @ 200 mls/hr Q8HRS IV Last administered on 08/03/18at 04:21; Start 07/27/18 at 22:30 Ondansetron HCl (Zofran) 4 mg PRN Q8HRS PRN IV NAUSEA/VOMITING 1ST CHOICE; Start 07/27/18 at 22:15; Stop 07/28/18 at 08:29; Status DC Fentanyl Citrate (Fentanyl 2ml Vial) 50 mcg PRN Q1HR PRN IV SEVERE PAIN Last administered on 07/28/18at 05:46; Start 07/27/18 at 22:15; Stop 07/28/18 at 08:30; Status DC Sodium Chloride 1,000 ml @ 125 mls/hr Q8H IV Last administered on 07/28/18at 18:15; Start 07/27/18 at 22:30; Stop 07/28/18 at 22:29; Status DC Methylprednisolone Sodium Succinate (SOLU-Medrol 125MG VIAL) 125 mg 1X ONCE IV Last administered on 07/27/18at 22:28; Start 07/27/18 at 23:00; Stop 07/27/18 at 23:01; Status DC Diphenhydramine HCl (Benadryl) 25 mg 1X ONCE IVP Last administered on 07/27/18at 22:29; Start 07/27/18 at 23:00; Stop 07/27/18 at 23:01; Status DC Cefazolin Sodium/ Dextrose 50 ml @ 100 mls/hr PREOP PRN PRN IV PREOP Last administered on 07/28/18at 06:05; Start 07/28/18 at 05:30; Stop 07/29/18 at 05:30; Status DC Metronidazole 100 ml @ 100 mls/hr PREOP PRN PRN IV PREOP Last administered on 07/28/18at 06:20; Start 07/28/18 at 05:30; Stop 07/29/18 at 05:30; Status DC Sevoflurane (Ultane) 90 ml STK-MED ONCE IH ; Start 07/28/18 at 05:34; Stop 07/28/18 at 05:35; Status DC Midazolam HCl (Versed) 2 mg STK-MED ONCE .ROUTE ; Start 07/28/18 at 05:35; Stop 07/28/18 at 05:36; Status DC Fentanyl Citrate (Fentanyl 2ml Vial) 100 mcg STK-MED ONCE .ROUTE ; Start 07/28/18 at 05:35; Stop 07/28/18 at 05:36; Status DC Rocuronium [place] (Zemuron) 100 mg STK-MED ONCE .ROUTE ; Start 07/28/18 at 05:35; Stop 07/28/18 at 05:36; Status DC Glycopyrrolate (Robinul) 1 mg STK-MED ONCE .ROUTE ; Start 07/28/18 at 05:35; Stop 07/28/18 at 05:36; Status DC Neostigmine Methylsulfate (Neostigmine Methylsulfate) 5 mg STK-MED ONCE .ROUTE ; Start 07/28/18 at 05:36; Stop 07/28/18 at 05:37; Status DC Propofol 20 ml @ As Directed STK-MED ONCE IV ; Start 07/28/18 at 05:36; Stop 07/28/18 at 05:37; Status DC Lidocaine HCl (Lidocaine Pf 2% Vial) 5 ml STK-MED ONCE .ROUTE ; Start 07/28/18 at 05:36; Stop 07/28/18 at 05:37; Status DC Dexamethasone Sodium Phosphate (Decadron) 4 mg STK-MED ONCE .ROUTE ; Start 07/28/18 at 05:36; Stop 07/28/18 at 05:37; Status DC Ondansetron HCl (Zofran) 4 mg STK-MED ONCE .ROUTE ; Start 07/28/18 at 05:36; Stop 07/28/18 at 05:37; Status DC Succinylcholine Chloride (Anectine) 200 mg STK-MED ONCE .ROUTE ; Start 07/28/18 at 05:37; Stop 07/28/18 at 05:38; Status DC Fentanyl Citrate (Fentanyl 2ml Vial) 100 mcg STK-MED ONCE .ROUTE ; Start 07/28/18 at 06:50; Stop 07/28/18 at 06:51; Status DC Hydralazine HCl (Apresoline Inj) 20 mg STK-MED ONCE .ROUTE ; Start 07/28/18 at 07:11; Stop 07/28/18 at 07:12; Status DC Pantoprazole Sodium (PROTONIX VIAL for IV PUSH) 40 mg BID IVP Last administered on 08/03/18at 08:33; Start 07/28/18 at 09:00; Stop 08/03/18 at 11:47; Status DC Sevoflurane (Ultane) 60 ml STK-MED ONCE IH ; Start 07/28/18 at 07:22; Stop 07/28/18 at 07:23; Status DC Fentanyl Citrate (Fentanyl 2ml Vial) 100 mcg STK-MED ONCE .ROUTE ; Start 07/28/18 at 08:00; Stop 07/28/18 at 08:01; Status DC Ondansetron HCl (Zofran) 4 mg PRN Q6HRS PRN IV NAUSEA/VOMITING 1ST CHOICE; Start 07/28/18 at 08:30 Morphine Sulfate (Morphine Sulfate) 2 mg PRN Q2HR PRN IV PAIN Last administered on 07/28/18at 09:14; Start 07/28/18 at 08:30; Stop 07/28/18 at 10:05; Status DC Ringer's Solution 1,000 ml @ 75 mls/hr [id number] IV Last administered on 07/29/18at 21:48; Start 07/28/18 at 05:50; Stop 07/30/18 at 08:45; Status DC Morphine Sulfate (Morphine Sulfate) 4 mg PRN Q2HR PRN IV MODERATE TO SEVERE PAIN Last administered on 08/03/18at 01:26; Start 07/28/18 at 10:15 Pantoprazole Sodium (PROTONIX VIAL for IV PUSH) 40 mg 1X ONCE IVP ; Start 07/28/18 at 10:15; Stop 07/28/18 at 10:16; Status DC Pantoprazole Sodium (PROTONIX VIAL for IV PUSH) 40 mg DAILYAC IVP ; Start 07/29/18 at 07:30; Stop 07/29/18 at 07:30; Status DC Enoxaparin Sodium (Lovenox 40mg Syringe) 40 mg Q24H SQ Last administered on 08/02/18at 12:34; Start 07/28/18 at 11:00 Multivitamins 10 ml/Thiamine HCl 100 mg/Folic Acid 1 mg/Sodium Chloride 1,011.2 ml @ 1,000.088 mls/hr DAILY IV Last administered on 08/01/18at 08:59; Start 07/28/18 at 11:00; Stop 08/02/18 at 10:59; Status DC Lorazepam (Ativan Inj) 1 mg PRN Q4HRS PRN IV ANXIETY / AGITATION Last administered on 07/28/18at 21:16; Start 07/28/18 at 10:15 Info (Tpn Per Pharmacy) 1 each PRN DAILY PRN MC SEE COMMENTS Last administered on 07/29/18at 12:51; Start 07/29/18 at 09:30; Stop 07/29/18 at 21:38; Status DC Sodium Chloride 90 meq/Potassium Chloride 50 meq/ Potassium Phosphate 13.6 mmol/Magnesium Sulfate 10 meq/ Calcium Gluconate 10 meq/ Multivitamins 10 ml/Chromium/ Copper/Manganese/ Seleni/Zn 1 ml/ Total Parenteral Nutrition/Amino Acids/Dextrose/ Fat Emulsion Intravenous 1,512 ml @ 63 mls/hr TPN CONT IV ; Start 07/29/18 at 22:00; Stop 07/29/18 at 22:00; Status DC Nicotine (Nicoderm Cq 21mg) 1 patch PRN DAILY PRN TD SMOKING CESSATION Last administered on 07/30/18at 11:04; Start 07/29/18 at 15:15 Amino Acids/ Glycerin/ Electrolytes 1,000 ml @ 80 mls/hr [id number] IV Last administered on 08/03/18at 08:33; Start 07/29/18 at 22:00 Metoprolol Tartrate (Lopressor Vial) 5 mg PRN Q6HRS PRN IVP HYPERTENSION, 2nd choice; Start 07/30/18 at 11:30 Enalaprilat (Vasotec Inj) 1.25 mg PRN Q6HRS PRN IVP HYPERTENSION, 1st choice; Start 07/30/18 at 11:30 Lactobacillus Rhamnosus (Culturelle) 1 cap BID PO Last administered on 08/03/18at 08:33; Start 08/01/18 at 21:00 Pantoprazole Sodium (Protonix) 40 mg BIDAC PO ; Start 08/03/18 at 16:30 Active Scripts Active Reported No Known Medications Prior To Admisstion (Info) Each 1 Each 1X Vitals/I & O Vital Sign - Last 24 Hours 08/02/18 08/02/18 08/02/18 08/03/18 19:00 20:00 23:00 01:26 Temp 98.4 98.6 98.4 98.6 Pulse 103 102 Resp 18 18 20 B/P (MAP) 108/62 (77) 112/69 (83) Pulse Ox 97 99 99 O2 Delivery Room Air Room Air Room Air Room Air 08/03/18 08/03/18 08/03/18 08/03/18 02:00 03:03 07:00 08:00 Temp 98.0 98.6 98.0 98.6 Pulse 93 83 Resp 16 18 16 B/P (MAP) 119/72 (88) 124/81 (95) Pulse Ox 98 98 98 O2 Delivery Room Air Room Air Room Air Room Air Intake and Output 08/02/18 08/02/18 08/03/18 14:59 22:59 06:59 Intake Total 600 ml 300 ml Output Total 900 ml 1250 ml 200 ml Balance -300 ml -950 ml -200 ml RAVI GODINEZ MD Aug 03, 2018 11:50
--- NOTE | 2018-08-03 12:01 | PDOC3 ---
Discharge Summary Date of Admission: Jul 28, 2018 Date of Discharge: Aug 03, 2018 Follow-Up: 3-5 days Admitting Diagnosis comment: Chief Complaint Chief Complaint s/p POD # 7 Exploratory laparotomy, primary repair of perforated pyloric channel ulcer with omental patch - alcoholism Positive amphetamine and cocaine use-UDS in the system History of perforated appendix distant past Status post perforated duodenal ulcer, irritable 08/01 angry at nurses, yelling at times 08/03 needs substance abuse counseling, see PCP THIS WEEK 36 min pt exam, chart review d/c planning , > 50% of time spent with exam, chart review, pt care coordination History of Present Illness History of Present Illness Postop day #7 NG x 4 days, out today 07/31/2018 Working with therapy today, need some assistance GS notes indicates possible clears today ProcalAmine Plan: cont ProcalAmine WITHDRAWAL PRECAUTIONS Continue PT OT He did have some recreational drug use [employer] Vitals Vitals Vital Signs Date Time Temp Pulse Resp B/P (MAP) Pulse Ox O2 Delivery O2 Flow Rate FiO2 08/03/18 08:00 Room Air 08/03/18 07:00 98.6 83 16 124/81 (95) 98 98.6 Physical Exam General: Alert, Oriented X3, No acute distress Heart: Regular rate, Normal S1, Normal S2 Lungs: Clear Abdomen: Normal bowel sounds, Soft Extremities: No clubbing, No cyanosis Skin: No rashes, No breakdown, No significant lesion Assessment and Plan Assessmemt and Plan Problems Medical Problems: (1) Abdominal pain Status: Acute (2) Perforated abdominal viscus Status: Acute FINAL DIAGNOSIS Problems Medical Problems: (1) Abdominal pain Status: Acute (2) Perforated abdominal viscus Status: Acute Brief Hospital Course Mr. Patterson is a 58 old [sex] who presented with [ PERFORATED BOWEL, ACUTE] CONDITION AT DISCHARGE: Improved Discharge Medications Current Medications Fentanyl Citrate (Fentanyl 2ml Vial) 50 mcg PRN Q15MIN PRN IV PAIN GREATER THAN 3/10 Last administered on 07/28/18at 08:30; Start 07/27/18 at 20:15; Stop 07/28/18 at 20:14; Status DC Sodium Chloride 1,000 ml @ 1,000 mls/hr Q1H IV Last administered on 07/27/18at 20:29; Start 07/27/18 at 20:06; Stop 07/27/18 at 21:05; Status DC Ondansetron HCl (Zofran) 4 mg 1X ONCE IV Last administered on 07/27/18at 20:29; Start 07/27/18 at 20:15; Stop 07/27/18 at 20:19; Status DC Iohexol (Omnipaque 300 Mg/ml) 75 ml 1X ONCE IV Last administered on 07/27/18at 21:05; Start 07/27/18 at 21:00; Stop 07/27/18 at 21:01; Status DC Meropenem 1 gm/ Sodium Chloride 100 ml @ 200 mls/hr Q8HRS IV Last administered on 08/03/18at 04:21; Start 07/27/18 at 22:30 Ondansetron HCl (Zofran) 4 mg PRN Q8HRS PRN IV NAUSEA/VOMITING 1ST CHOICE; Start 07/27/18 at 22:15; Stop 07/28/18 at 08:29; Status DC Fentanyl Citrate (Fentanyl 2ml Vial) 50 mcg PRN Q1HR PRN IV SEVERE PAIN Last administered on 07/28/18at 05:46; Start 07/27/18 at 22:15; Stop 07/28/18 at 08:30; Status DC Sodium Chloride 1,000 ml @ 125 mls/hr Q8H IV Last administered on 07/28/18at 18:15; Start 07/27/18 at 22:30; Stop 07/28/18 at 22:29; Status DC Methylprednisolone Sodium Succinate (SOLU-Medrol 125MG VIAL) 125 mg 1X ONCE IV Last administered on 07/27/18at 22:28; Start 07/27/18 at 23:00; Stop 07/27/18 at 23:01; Status DC Diphenhydramine HCl (Benadryl) 25 mg 1X ONCE IVP Last administered on 07/27/18at 22:29; Start 07/27/18 at 23:00; Stop 07/27/18 at 23:01; Status DC Cefazolin Sodium/ Dextrose 50 ml @ 100 mls/hr PREOP PRN PRN IV PREOP Last administered on 07/28/18at 06:05; Start 07/28/18 at 05:30; Stop 07/29/18 at 05:30; Status DC Metronidazole 100 ml @ 100 mls/hr PREOP PRN PRN IV PREOP Last administered on 07/28/18at 06:20; Start 07/28/18 at 05:30; Stop 07/29/18 at 05:30; Status DC Sevoflurane (Ultane) 90 ml STK-MED ONCE IH ; Start 07/28/18 at 05:34; Stop 07/28/18 at 05:35; Status DC Midazolam HCl (Versed) 2 mg STK-MED ONCE .ROUTE ; Start 07/28/18 at 05:35; Stop 07/28/18 at 05:36; Status DC Fentanyl Citrate (Fentanyl 2ml Vial) 100 mcg STK-MED ONCE .ROUTE ; Start 07/28/18 at 05:35; Stop 07/28/18 at 05:36; Status DC Rocuronium Herminie (Zemuron) 100 mg STK-MED ONCE .ROUTE ; Start 07/28/18 at 05:35; Stop 07/28/18 at 05:36; Status DC Glycopyrrolate (Robinul) 1 mg STK-MED ONCE .ROUTE ; Start 07/28/18 at 05:35; Stop 07/28/18 at 05:36; Status DC Neostigmine Methylsulfate (Neostigmine Methylsulfate) 5 mg STK-MED ONCE .ROUTE ; Start 07/28/18 at 05:36; Stop 07/28/18 at 05:37; Status DC Propofol 20 ml @ As Directed STK-MED ONCE IV ; Start 07/28/18 at 05:36; Stop 07/28/18 at 05:37; Status DC Lidocaine HCl (Lidocaine Pf 2% Vial) 5 ml STK-MED ONCE .ROUTE ; Start 07/28/18 at 05:36; Stop 07/28/18 at 05:37; Status DC Dexamethasone Sodium Phosphate (Decadron) 4 mg STK-MED ONCE .ROUTE ; Start 07/28/18 at 05:36; Stop 07/28/18 at 05:37; Status DC Ondansetron HCl (Zofran) 4 mg STK-MED ONCE .ROUTE ; Start 07/28/18 at 05:36; Stop 07/28/18 at 05:37; Status DC Succinylcholine Chloride (Anectine) 200 mg STK-MED ONCE .ROUTE ; Start 07/28/18 at 05:37; Stop 07/28/18 at 05:38; Status DC Fentanyl Citrate (Fentanyl 2ml Vial) 100 mcg STK-MED ONCE .ROUTE ; Start 07/28/18 at 06:50; Stop 07/28/18 at 06:51; Status DC Hydralazine HCl (Apresoline Inj) 20 mg STK-MED ONCE .ROUTE ; Start 07/28/18 at 07:11; Stop 07/28/18 at 07:12; Status DC Pantoprazole Sodium (PROTONIX VIAL for IV PUSH) 40 mg BID IVP Last administered on 08/03/18at 08:33; Start 07/28/18 at 09:00; Stop 08/03/18 at 11:47; Status DC Sevoflurane (Ultane) 60 ml STK-MED ONCE IH ; Start 07/28/18 at 07:22; Stop 07/28/18 at 07:23; Status DC Fentanyl Citrate (Fentanyl 2ml Vial) 100 mcg STK-MED ONCE .ROUTE ; Start 07/28/18 at 08:00; Stop 07/28/18 at 08:01; Status DC Ondansetron HCl (Zofran) 4 mg PRN Q6HRS PRN IV NAUSEA/VOMITING 1ST CHOICE; Start 07/28/18 at 08:30 Morphine Sulfate (Morphine Sulfate) 2 mg PRN Q2HR PRN IV PAIN Last administered on 07/28/18at 09:14; Start 07/28/18 at 08:30; Stop 07/28/18 at 10:05; Status DC Ringer's Solution 1,000 ml @ 75 mls/hr [id number] IV Last administered on 07/29/18at 21:48; Start 07/28/18 at 05:50; Stop 07/30/18 at 08:45; Status DC Morphine Sulfate (Morphine Sulfate) 4 mg PRN Q2HR PRN IV MODERATE TO SEVERE PAIN Last administered on 08/03/18at 01:26; Start 07/28/18 at 10:15 Pantoprazole Sodium (PROTONIX VIAL for IV PUSH) 40 mg 1X ONCE IVP ; Start 07/28/18 at 10:15; Stop 07/28/18 at 10:16; Status DC Pantoprazole Sodium (PROTONIX VIAL for IV PUSH) 40 mg DAILYAC IVP ; Start 07/29/18 at 07:30; Stop 07/29/18 at 07:30; Status DC Enoxaparin Sodium (Lovenox 40mg Syringe) 40 mg Q24H SQ Last administered on 08/02/18at 12:34; Start 07/28/18 at 11:00 Multivitamins 10 ml/Thiamine HCl 100 mg/Folic Acid 1 mg/Sodium Chloride 1,011.2 ml @ 1,000.088 mls/hr DAILY IV Last administered on 08/01/18at 08:59; Start 07/28/18 at 11:00; Stop 08/02/18 at 10:59; Status DC Lorazepam (Ativan Inj) 1 mg PRN Q4HRS PRN IV ANXIETY / AGITATION Last administered on 07/28/18at 21:16; Start 07/28/18 at 10:15 Info (Tpn Per Pharmacy) 1 each PRN DAILY PRN MC SEE COMMENTS Last administered on 07/29/18at 12:51; Start 07/29/18 at 09:30; Stop 07/29/18 at 21:38; Status DC Sodium Chloride 90 meq/Potassium Chloride 50 meq/ Potassium Phosphate 13.6 mmol/Magnesium Sulfate 10 meq/ Calcium Gluconate 10 meq/ Multivitamins 10 ml/Chromium/ Copper/Manganese/ Seleni/Zn 1 ml/ Total Parenteral Nutrition/Amino Acids/Dextrose/ Fat Emulsion Intravenous 1,512 ml @ 63 mls/hr TPN CONT IV ; Start 07/29/18 at 22:00; Stop 07/29/18 at 22:00; Status DC Nicotine (Nicoderm Cq 21mg) 1 patch PRN DAILY PRN TD SMOKING CESSATION Last administered on 07/30/18at 11:04; Start 07/29/18 at 15:15 Amino Acids/ Glycerin/ Electrolytes 1,000 ml @ 80 mls/hr [id number] IV Last administered on 08/03/18at 08:33; Start 07/29/18 at 22:00 Metoprolol Tartrate (Lopressor Vial) 5 mg PRN Q6HRS PRN IVP HYPERTENSION, 2nd choice; Start 07/30/18 at 11:30 Enalaprilat (Vasotec Inj) 1.25 mg PRN Q6HRS PRN IVP HYPERTENSION, 1st choice; Start 07/30/18 at 11:30 Lactobacillus Rhamnosus (Culturelle) 1 cap BID PO Last administered on 08/03/18at 08:33; Start 08/01/18 at 21:00 Pantoprazole Sodium (Protonix) 40 mg BIDAC PO ; Start 08/03/18 at 16:30 Active Scripts Active Reported No Known Medications Prior To Admisstion (Info) Each 1 Each 1X Vital Signs Vital Signs Date Time Temp Pulse Resp B/P (MAP) Pulse Ox O2 Delivery O2 Flow Rate FiO2 08/03/18 08:00 Room Air 08/03/18 07:00 98.6 83 16 124/81 (95) 98 98.6 Labs Laboratory Tests Test 08/02/18 03:45 White Blood Count 4.4 x10^3/uL (4.0-11.0) Red Blood Count 4.99 x10^6/uL (4.30-5.70) Hemoglobin 14.0 g/dL (13.0-17.5) Hematocrit 41.5 % (39.0-53.0) Mean Corpuscular Volume 83 fL (79-100) Mean Corpuscular Hemoglobin 28 pg (25-35) Mean Corpuscular Hemoglobin Concent 34 g/dL (31-37) Red Cell Distribution Width 13.7 % (11.5-14.5) Platelet Count 142 x10^3/uL (140-400) Neutrophils (%) (Auto) 53 % (31-73) Lymphocytes (%) (Auto) 35 % (24-48) Monocytes (%) (Auto) 8 % (0-9) Eosinophils (%) (Auto) 3 % (0-3) Basophils (%) (Auto) 1 % (0-3) Neutrophils # (Auto) 2.3 x10^3uL (1.8-7.7) Lymphocytes # (Auto) 1.5 x10^3/uL (1.0-4.8) Monocytes # (Auto) 0.3 x10^3/uL (0.0-1.1) Eosinophils # (Auto) 0.1 x10^3/uL (0.0-0.7) Basophils # (Auto) 0.0 x10^3/uL (0.0-0.2) Sodium Level 141 mmol/L (136-145) Potassium Level 4.2 mmol/L (3.5-5.1) Chloride Level 104 mmol/L (98-107) Carbon Dioxide Level 30 mmol/L (21-32) Anion Gap 7 (6-14) Blood Urea Nitrogen 13 mg/dL (8-26) Creatinine 0.8 mg/dL (0.7-1.3) Estimated GFR (Cockcroft-Gault) 119.3 Glucose Level 96 mg/dL (70-99) Calcium Level 8.5 mg/dL (8.5-10.1) Allergies Allergies Coded Allergies Type Severity Reaction Last Updated Verified Penicillins Allergy Intermediate RASH, SHORTNESS OF BREATH 07/27/18 Yes acetaminophen Allergy Intermediate 12/10/15 Yes Disposition/Orders: D/C to Home Patient Instructions D/C PLANNING 36 MIN RAVI GODINEZ MD Aug 03, 2018 12:01
[2018-08-03] MEDS ORDERED: LACT1CAP19 PO (12:02)
[2018-08-03] MEDS ORDERED: Pantoprazole PO (12:02)
--- NOTE | 2018-08-03 12:03 | DISCH ---
DISCHARGE INSTRUCTIONS Condition on Discharge Condition on Discharge: Guarded Activity After Discharge Activity Instructions for Disc: Activity as tolerated Lifting Instructions after Dis: No heavy lifting, No pulling or pushing Exercise Instruction after Dis: Walk 10 min, 3 x per day Driving Instructions after Dis: Do not drive Weight Bearing Status after Di: As tolerated Diet after Discharge Diet after Discharge: Regular Wound Incision Care Wound/Incision Care: Keep wound/cast CDI Checks after Discharge Checks after discharge: Check blood press - daily Contacting the DR. after DC Call your doctor for: If your condition worsens Follow-Up Follow up with: PCP NEXT WEEK Follow Up With: De. Flower [phone] RAVI GODINEZ MD Aug 03, 2018 12:03
--- NOTE | 2018-08-03 12:46 | NUR ---
Discharge Note: SIL LARKIN Discharge instructions and discharge home medications reviewed with Patient and a copy given. All questions have been answered and understanding verbalized. The following instructions and handouts were given: Patient given education regarding pantoprazole and pain medicine. Discontinued lines and drains: Iv removed per protocol. Patient discharged home, picked up by family member.
[2018-08-03] MEDS ORDERED: PANTOPRAZOLE 40 MG TABLET.DR. PO SCH (16:30)
== END 2018-08-03 12:45 | disposition home or self-care (01) | DRG 328 ==
LOC: ER 20:04 → 5 NORTH 22:19
PROVIDERS: ADMIT Internal Medicine; ATTEND Internal Medicine
PROC: 0DU607Z Supplement Stomach with Autologous Tissue Substitute, Open Approach (ICD-10-PCS; principal; 2018-07-28 06:30)
DX: K25.5 Chronic or unspecified gastric ulcer with perforation (principal); F10.20 Alcohol dependence, uncomplicated; F14.90 Cocaine use, unspecified, uncomplicated; I10 Essential (primary) hypertension; K31.89 Other diseases of stomach and duodenum; K66.8 Other specified disorders of peritoneum; Z87.11 Personal history of peptic ulcer disease; Z79.899 Other long term (current) drug therapy; Z88.0 Allergy status to penicillin; Z88.8 Allergy status to other drugs, medicaments and biological substances; Z90.49 Acquired absence of other specified parts of digestive tract
CPT/HCPCS: 36415; 71045; 74177; 80048; 80053; 80307; 81001; 83605; 83690; 83735; 84100; 84478; 84484; 85007; 85025; 85610; 85730; 87040; 87086; 93005; 96361; 96374; 96375; A7015; C9113; G0480; J0330; J0360; J0696; J1100; J1200; J1650; J2001; J2060; J2185; J2250; J2270; J2405; J2704; J2710; J2930; J3010; J3490; J7030; J7120; Q9967; 97530; 99285-25

== ENCOUNTER 2019-07-16 14:57 | Inpatient (IN) | payer SELFPAY ==
[~2019-07-16] VITALS: Ht 190.5 cm; Wt 78.4 kg
[~2019-07-16 14:57] MED LIST changes: +LACT1CAP19 PO; -NITR0.4T SL; +NITR0.4T24 SL
[2019-07-16] MEDS ORDERED: FAMOTIDINE 20 MG/2 ML VIAL IVP ONE (15:15)
[2019-07-16 15:21] LABS: BASO % 0 % (0-3); EOS # 0.1 x10^3/uL (0.0-0.7); EOS % 2 % (0-3); HEMATOCRIT 43.5 % (39.0-53.0); HEMOGLOBIN 14.4 g/dL (13.0-17.5); LYMPH # 1.3 x10^3/uL (1.0-4.8); LYMPH % 29 % (24-48); MEAN CORPUSCULAR HEMOGLOBIN 28 pg (25-35); MEAN CORPUSCULAR HGB CONC 33 g/dL (31-37); MEAN CORPUSCULAR VOLUME 84 fL (79-100); MONO # 0.3 x10^3/uL (0.0-1.1); MONO % 6 % (0-9); NEUT # 2.8 x10^3/uL (1.8-7.7); NEUT % 63 % (31-73); PLATELET COUNT 200 x10^3/uL (140-400); RED BLOOD COUNT 5.17 x10^6/uL (4.30-5.70); RED CELL DISTRIBUTION WIDTH 14.7 % (11.5-14.5); WHITE BLOOD COUNT 4.5 x10^3/uL (4.0-11.0)
[2019-07-16 15:29] LABS: GFR 91.9; POTASSIUM 4.1 mmol/L (3.5-5.1)
[2019-07-16 15:38] LABS: ALBUMIN/GLOBULIN RATIO 1.1 (1.0-1.7); TOTAL BILIRUBIN 0.5 mg/dL (0.2-1.0); TOTAL PROTEIN 5.7 g/dL (6.4-8.2)
--- NOTE | 2019-07-16 15:47 | RAD ---
AP view of the chest. Comparison: Chest radiograph dated 07/27/2018. Indication: Chest pain Findings: Normal lung volume. No focal airspace disease. Unchanged pulmonary vasculature. No pleural effusion. No pneumothorax. The cardiomediastinal silhouette is normal in appearance. The great vessels are normal. No acute osseous abnormality. Mild dextrocurvature of the thoracic spine. Impression: No acute cardiopulmonary process. SACRUM COCCYX 3V INDICATION: Sacrococcygeal pain COMPARISON: Acute abdomen series dated 04/06/2019. FINDINGS: No displaced fracture or malalignment. Mild pubic symphysis arthrosis. The joint spaces are otherwise maintained. Bony mineralization is normal for the patient's age. No significant soft tissue abnormality. No radiopaque foreign body. IMPRESSION: No displaced sacrococcygeal fracture or malalignment. Electronically signed by: Chi Weems MD (07/16/2019 3:44 PM) [id number]
--- NOTE | 2019-07-16 15:57 | PHYS DOC ---
Past Medical History Past Medical History: Cancer, Hypertension, [place] Additional Past Medical Histor: "ULCERS" "ANTIFREEZE POISONING" Past Surgical History: Other Additional Past Surgical Histo: ABD "SURGERY 2 ANTIFREEZE POISONING" PNEUMOPERITONEUM Smoking Status: Current Every Day Smoker Alcohol Use: None Drug Use: None General Adult EDM: Chief Complaint: ABDOMINAL PAIN HPI: HPI: Patient is a 59 year old male who presents with mid chest pain and epigastric pain that started today. Denies nausea or vomiting, fever, diarrhea, headache, dizziness, numbness or tingling, vision changes, shortness of air. Rates his pain a 10 out of 10. Patient also complains of mid coccyx pain more so on his tailbone states that is tender. Review of Systems: Review of Systems: Cardiovascular: chest pain or denies edema. [] GI: upper abdominal pain, denies nausea, vomiting, bloody stools or diarrhea. [] Heart Score: HEART Score for Chest Pain: HEART Score for Chest Pain Response (Comments) Value History Slighlty/Non-Suspicious 0 ECG Normal 0 Age >45 - < 65 1 Risk Factors >3 Risk Factors or Hx CAD 2 Troponin < Normal Limit 0 Total 3 Risk Factors: Risk Factors: DM, Current or recent (<one month) smoker, HTN, HLP, family history of CAD, obesity. Risk Scores: Score 0 - 3: 2.5% MACE over next 6 weeks - Discharge Home Score 4 - 6: 20.3% MACE over next 6 weeks - Admit for Clinical Observation Score 7 - 10: 72.7% MACE over next 6 weeks - Early Invasive Strategies Current Medications: Current Medications Medications (Trade) Dose Ordered Sig/[facility] Start Time Stop Time Status Last Admin Dose Admin Famotidine (Pepcid Vial) 20 mg 1X ONCE 07/16/19 15:15 07/16/19 15:16 DC 07/16/19 15:34 20 MG Allergies: Allergies: Allergies Coded Allergies Type Severity Reaction Last Updated Verified Penicillins Allergy Intermediate RASH, SHORTNESS OF BREATH 07/27/18 Yes acetaminophen Allergy Intermediate 12/10/15 Yes Physical Exam: PE: Constitutional: Well developed, well nourished, no acute distress, non-toxic appearance. [] HENT: Normocephalic, atraumatic, bilateral external ears normal, oropharynx moist, no oral exudates, nose normal. [] Eyes: PERRLA, EOMI, conjunctiva normal, no discharge. [] Neck: Normal range of motion, no tenderness, supple, no stridor. [] Cardiovascular:Heart rate regular rhythm, no murmur [] Lungs & Thorax: Bilateral breath sounds clear to auscultation [] Abdomen: Bowel sounds normal, soft, epigastric tenderness, no masses, no pulsatile masses. [] Skin: Warm, dry, no erythema, no rash. [] Back: No tenderness, no CVA tenderness. Coccyx tenderness without deformity, bruising, or lumps[] Extremities: No tenderness, no cyanosis, no clubbing, ROM intact, no edema. [] Neurologic: Alert and oriented X 3, normal motor function, normal sensory function, no focal deficits noted. [] Psychologic: Affect normal, judgement normal, mood normal. [] Current Patient Data: Labs: Laboratory Tests Test 07/16/19 15:10 White Blood Count 4.5 x10^3/uL (4.0-11.0) Red Blood Count 5.17 x10^6/uL (4.30-5.70) Hemoglobin 14.4 g/dL (13.0-17.5) Hematocrit 43.5 % (39.0-53.0) Mean Corpuscular Volume 84 fL (79-100) Mean Corpuscular Hemoglobin 28 pg (25-35) Mean Corpuscular Hemoglobin Concent 33 g/dL (31-37) Red Cell Distribution Width 14.7 % (11.5-14.5) H Platelet Count 200 x10^3/uL (140-400) Neutrophils (%) (Auto) 63 % (31-73) Lymphocytes (%) (Auto) 29 % (24-48) Monocytes (%) (Auto) 6 % (0-9) Eosinophils (%) (Auto) 2 % (0-3) Basophils (%) (Auto) 0 % (0-3) Neutrophils # (Auto) 2.8 x10^3/uL (1.8-7.7) Lymphocytes # (Auto) 1.3 x10^3/uL (1.0-4.8) Monocytes # (Auto) 0.3 x10^3/uL (0.0-1.1) Eosinophils # (Auto) 0.1 x10^3/uL (0.0-0.7) Basophils # (Auto) 0.0 x10^3/uL (0.0-0.2) Prothrombin Time 11.0 SEC (11.7-14.0) L Prothrombin Time INR 0.8 (0.8-1.1) Sodium Level 146 mmol/L (136-145) H Potassium Level 4.1 mmol/L (3.5-5.1) Chloride Level 106 mmol/L (98-107) Carbon Dioxide Level 35 mmol/L (21-32) H Anion Gap 5 (6-14) L Blood Urea Nitrogen 9 mg/dL (8-26) Creatinine 1.0 mg/dL (0.7-1.3) Estimated GFR (Cockcroft-Gault) 91.9 BUN/Creatinine Ratio 9 (6-20) Glucose Level 94 mg/dL (70-99) Calcium Level 8.0 mg/dL (8.5-10.1) L Total Bilirubin 0.5 mg/dL (0.2-1.0) Aspartate Amino Transferase (AST) 21 U/L (15-37) Alanine Aminotransferase (ALT) 27 U/L (16-63) Alkaline Phosphatase 106 U/L (46-116) Troponin I Quantitative < 0.017 ng/mL (0.000-0.055) Total Protein 5.7 g/dL (6.4-8.2) L Albumin 3.0 g/dL (3.4-5.0) L Albumin/Globulin Ratio 1.1 (1.0-1.7) Lipase 115 U/L (73-393) Laboratory Tests 07/16/19 15:10 Laboratory Tests 07/16/19 15:10 Vital Signs: Vital Signs Date Time Temp Pulse Resp B/P (MAP) Pulse Ox O2 Delivery O2 Flow Rate FiO2 07/16/19 15:00 98.1 82 18 151/90 (110) 99 Room Air 98.1 EKG: EK and read by Dr Breaux as Regular rhythm and no STEMI[] Radiology/Procedures: Radiology/Procedures: [] Impression: [facility] [address] [place] [address] IMAGING REPORT Signed PATIENT: MARIA LARKIN ACCOUNT: [id number] : 1960 LOCATION: ER AGE: 59 SEX: M EXAM STATUS: REG ER ORD. PHYSICIAN: ROBB AGUILAR APRN REASON: pain PROCEDURE: PORTABLE CHEST 1V AP view of the chest. Comparison: Chest radiograph dated 07/27/2018. Indication: Chest pain Findings: Normal lung volume. No focal airspace disease. Unchanged pulmonary vasculature. No pleural effusion. No pneumothorax. The cardiomediastinal silhouette is normal in appearance. The great vessels are normal. No acute osseous abnormality. Mild dextrocurvature of the thoracic spine. Impression: No acute cardiopulmonary process. SACRUM COCCYX 3V INDICATION: Sacrococcygeal pain COMPARISON: Acute abdomen series dated 04/06/2019. FINDINGS: No displaced fracture or malalignment. Mild pubic symphysis arthrosis. The joint spaces are otherwise maintained. Bony mineralization is normal for the patient's age. No significant soft tissue abnormality. No radiopaque foreign body. IMPRESSION: No displaced sacrococcygeal fracture or malalignment. Electronically signed by: Chi Weems MD (07/16/2019 3:44 PM) [id number] DICTATED and SIGNED BY: CHI WEEMS MD DATE: 07/16/19 1544 [facility] [address], [place] [id number] IMAGING REPORT Signed PATIENT: MARIA LARKIN ACCOUNT: [id number] : 1960 LOCATION: ER AGE: 59 SEX: M EXAM STATUS: REG ER ORD. PHYSICIAN: ROBB AGUILAR APRN REASON: upper abd pain PROCEDURE: CT ABD PELV W/ IV CONTRST ONLY CT scan of the abdomen and pelvis with contrast 07/08/2019 CLINICAL HISTORY: Upper abdominal pain. TECHNIQUE: After the intravenous administration 75 cc of Omnipaque 300, contiguous, 5 mm axial sections were obtained to the abdomen and pelvis. One or more of the following individualized dose reduction techniques were utilized for this study: 1. Automated exposure control. 2. Adjustment of the mA and/or kV according to patient size. 3. Use of iterative reconstruction technique. Findings: Comparison study is dated 04/04/2019. Images through the lung bases demonstrate minimal dependent subsegmental atelectasis bilaterally. Rounded low-attenuation lesions are seen involving the liver consistent with hepatic cysts. These measure 3 mm to 1.1 cm in size. The spleen, pancreas, adrenal glands and kidneys are within normal limits. Atherosclerotic calcification of the abdominal aorta is seen. The abdominal aorta tapers normally. The gallbladder is contracted. No free fluid or free air is seen within the abdomen. Air and stool are seen throughout the colon. The appendix is not visualized. No inflammatory changes are seen surrounding the cecum. Images through the pelvis demonstrate the urinary bladder distended with urine. The prostate gland is enlarged likely related to BPH. A small amount of free fluid is seen within the pelvis. The osseous structures are unchanged. IMPRESSION: Small amount of free fluid is seen within the pelvis. No additional acute abnormality is seen. Electronically signed by: Bryce Landaverde MD (07/16/2019 4:54 PM) [id number] DICTATED and SIGNED BY: BRYCE LANDAVERDE MD DATE: 07/16/19 165 Course & Med Decision Making: Course & Med Decision Making Pertinent Labs and Imaging studies reviewed. (See chart for details) Epigastric tenderness with palpation but otherwise soft and nontender. Lungs are clear in upper lobes diminished in lower lobes. Speaks in full clear sentences. Alert and oriented. Ambulatory with steady gait. No extremity swelling. Patient has a history of KS, hypertension, GI ulcers, smoker. Tenderness to the tailbone coccyx area. No bruising or deformity or swelling or bump. Patient denies injury. Patient rating his abdominal pain a 6, his chest pain a 5, his headache 10. He is hypertensive. I have ordered Hydralazine 10mg. I have spoken to Dr. Haney for admission. I will consult cardiology. [] Treva Disclaimer: Treva Disclaimer: This electronic medical record was generated, in whole or in part, using a voice recognition dictation system. Departure Departure Impression: Primary Impression: Chest pain Qualified Codes: R07.9 - Chest pain, unspecified Disposition: ADMITTED INPATIENT Admitting Physician: AMISHA Condition: STABLE Referrals: NO PCP (PCP) ROBB AGUILAR [employer] July 16, 2019 15:57
[2019-07-16] MEDS ORDERED: IOHEXOL 300 MG/ML 100ML VIAL. IV ONE (16:15)
--- NOTE | 2019-07-16 16:57 | RAD ---
CT scan of the abdomen and pelvis with contrast 07/08/2019 CLINICAL HISTORY: Upper abdominal pain. TECHNIQUE: After the intravenous administration 75 cc of Omnipaque 300, contiguous, 5 mm axial sections were obtained to the abdomen and pelvis. One or more of the following individualized dose reduction techniques were utilized for this study: 1. Automated exposure control. 2. Adjustment of the mA and/or kV according to patient size. 3. Use of iterative reconstruction technique. Findings: Comparison study is dated 04/04/2019. Images through the lung bases demonstrate minimal dependent subsegmental atelectasis bilaterally. Rounded low-attenuation lesions are seen involving the liver consistent with hepatic cysts. These measure 3 mm to 1.1 cm in size. The spleen, pancreas, adrenal glands and kidneys are within normal limits. Atherosclerotic calcification of the abdominal aorta is seen. The abdominal aorta tapers normally. The gallbladder is contracted. No free fluid or free air is seen within the abdomen. Air and stool are seen throughout the colon. The appendix is not visualized. No inflammatory changes are seen surrounding the cecum. Images through the pelvis demonstrate the urinary bladder distended with urine. The prostate gland is enlarged likely related to BPH. A small amount of free fluid is seen within the pelvis. The osseous structures are unchanged. IMPRESSION: Small amount of free fluid is seen within the pelvis. No additional acute abnormality is seen. Electronically signed by: Bryce Landaverde MD (07/16/2019 4:54 PM) [id number]
[2019-07-16] MEDS ORDERED: IV NORMAL SALINE 1000ML BAG 1,000 ML IV ONE (17:00)
[2019-07-16 18:43] LABS: BILIRUBIN,URINE NEGATIVE (NEG); CLARITY,URINE CLEAR; COLOR,URINE YELLOW; NITRITE,URINE NEGATIVE (NEG); PH,URINE 7.5 (<5.0-8.0); PROTEIN,URINE NEGATIVE (NEG-TRACE)
[2019-07-16] MEDS ORDERED: hydrALAZINE 20 MG/ML VIAL. IVP ONE (18:45)
[2019-07-16 18:52] LABS: BACTERIA,URINE 0 /HPF (0-FEW); BARBITURATES NEG (NEG); BENZODIAZEPINES NEG (NEG); CANNABINOIDS NEG (NEG); COCAINE NEG (NEG); METHADONE NEG (NEG); OPIATES NEG (NEG); PHENCYCLIDINE NEG (NEG); RBC,URINE 0 /HPF (0-2); SQUAMOUS EPITHELIAL CELL,UR OCC /LPF; TRICHOMONAS,URINE PRESENT; WBC,URINE 0 /HPF (0-4)
[2019-07-16 18:54] LABS: AMPHETAMINE/METHAMPHETAMINE NEG (NEG)
[2019-07-16] MEDS ORDERED: fentaNYL PF VIAL 100 MCG/2 ML VIAL IVP ONE (19:15)
[2019-07-16] MEDS ORDERED: ONDANSETRON PF 4 MG/2 ML VIAL. IV PRN (19:15)
--- NOTE | 2019-07-16 20:29 | HP ---
ADMIT DATE: 07/16/2019 CHIEF COMPLAINT: Abdominal pain. HISTORY OF PRESENT ILLNESS: The patient is a pleasant 59-year-old male who presents with abdominal pain. States it started today, it is epigastric. He took some [id number] meds that did not help. I discussed the case with ER physician. The patient is being admitted with consultation to GI and Cardiology. PAST MEDICAL HISTORY: Chronic pain, peptic ulcer disease, history of (antifreeze poisoning), pneumoperitoneum hypertension, myocardial infarction. ALLERGIES: PENICILLIN, TYLENOL. FAMILY HISTORY: Coronary artery disease. SOCIAL HISTORY: Does not drink, smoke or take drugs. MEDICATIONS: Reviewed, please refer to the MRAD. REVIEW OF SYSTEMS: GENERAL: No history of weight change, weakness or fevers. SKIN: No bruising, hair changes or rashes. EYES: No blurred, double or loss of vision. NOSE AND THROAT: No history of nosebleeds, hoarseness or sore throat. HEART: Complains of chest pain. LUNGS: Denies cough, hemoptysis, wheezing or shortness of breath. GASTROINTESTINAL: Complains of abdominal pain. GENITOURINARY: No history of frequency, urgency, hesitancy or nocturia. NEUROLOGIC: Denies history of numbness, tingling, tremor or weakness. PSYCHIATRIC: No history of panic, anxiety or depression. ENDOCRINE: No history of heat or cold intolerance, polyuria or polydipsia. EXTREMITIES: Denies muscle weakness, joint pain, pain on walking or stiffness. PHYSICAL EXAMINATION: VITALS: Within normal limits and are stable. GENERAL: No apparent distress. Alert and oriented. HEENT: Normal cephalic atraumatic, external auditory canals are patent EYES: Extraocular muscles are intact, pupils are equally round and reactive to light and accommodation MUSCULOSKELETAL: Well developed, well nourished, good range of motion ENDOCRINE: No thyromegaly was palpated LYMPHATICS: No cervical chain or axillary nodes were noted HEMATOPOIETIC: No bruising NECK: Supple, no JVD, no thyromegaly was noted. LUNGS: Clear to auscultation in all lung nava without rhonchi or wheezing. HEART: RRR, S1, S2 present. Peripheral pulses intact, no obvious murmurs were noted. ABDOMEN: Soft, nontender. Positive bowel sounds no organomegaly, normal bowel sounds. EXTREMITIES: Without any cyanosis, clubbing, or edema. Pedal pulses intact, Homans sign is negative. NEUROLOGIC: Normal speech, normal tone. A & O x3, moves all extremities, no obvious focal deficits. PSYCHIATRIC: Normal affect, normal mood. Stable. SKIN: No ulcerations or rashes, good skin turgor, no jaundice. VASCULAR: Good capillary refill, neurovascular bundle appears to be intact. ASSESSMENT AND PLAN: Chest pain, abdominal pain. The patient will be admitted. We will check serial enzymes, serial EKGs. Consult Cardiology, consult GI, home meds, DVT prophylaxis. Full code. P.r.n. Zofran, p.r.n. fentanyl, p.r.n. hydralazine. CODIE YANES DO DR: GENNARO/leelee JOB#: [id number] / [id number]
[2019-07-16] MEDS ORDERED: hydrALAZINE 20 MG/ML VIAL. IVP PRN (22:00)
--- NOTE | 2019-07-16 22:30 | NUR ---
Admit from ED to [address] [place] [address] 250 via [facility]. Patient stood and transferred self from [facility] to bed. A/O x 4 on arrival. Orientated to room and call light. Reviewed POC to include Tele monitor and lab draws such as troponin. Patient verbalized understanding. Resting in bed with call light at hand.
[2019-07-16 23:13] VITALS: BP 105/55
[2019-07-17] MEDS: fentaNYL PF VIAL 100 MCG/2 ML VIAL IVP PRN ×3 (00:04→08:58)
--- NOTE | 2019-07-17 01:19 | NUR ---
Upon reviewing home medication list patient reports he does not take any medication at home.
[2019-07-17 02:32] VITALS: BP 108/58
--- NOTE | 2019-07-17 06:37 | EKG ---
[facility] [address] [place] [address] Test Date: 2019-07-16 Test Time: 15:04:46 Pat Name: MARIA LARKIN Department: Room: 250 1 Gender: M Content Publisher: : 1960 Requested By: ROBB AGUILAR Order Number: [id number] Reading MD: Enrique Franco MD Measurements Intervals [place] Rate: 81 P: MS: QRS: 38 QRSD: 238 T: 88 QT: 442 QTc: 520 Interpretive Statements SR BASELINE ARTIFACT Electronically Signed On 07-20-2019 12:12:23 CDT by Enrique Franco MD
[2019-07-17 07:00] VITALS: BP 121/68
--- NOTE | 2019-07-17 08:27 | PDOC2 ---
CARDIAC CONSULT DATE OF CONSULT Date of Consult DATE: 07/17/19 TIME: 08:18 REASON FOR CONSULT Reason for Consult: Chest pain SOURCE Source: Chart review, Patient PAST MEDICAL HISTORY Cardiovascular: HTN, Hyperlipidemia GI: Other (ileues) Musculoskeletal: Osteoarthritis PAST SURGICAL HISTORY Past Surgical History: Appendectomy, Other (laparotomy; ?Thyroidectomy) FAMILY HISTORY Family History: Heart Disease SOCIAL HISTORY Smoke: <1 pack per day ALCOHOL: none Drugs: Cocaine CURRENT MEDICATIONS CURRENT MEDICATIONS Current Medications Medications (Trade) Dose Ordered Sig/Marylin Route PRN Reason Start Time Stop Time Status Last Admin Dose Admin Famotidine (Pepcid Vial) 20 mg 1X ONCE IVP 07/16/19 15:15 07/16/19 15:16 DC 07/16/19 15:34 Iohexol (Omnipaque 300 Mg/ml) 75 ml 1X ONCE IV 07/16/19 16:15 07/16/19 16:16 DC 07/16/19 16:36 Sodium Chloride 1,000 ml @ 1,000 mls/hr 1X ONCE IV 07/16/19 17:00 07/16/19 17:59 DC 07/16/19 17:12 Hydralazine HCl (Apresoline Inj) 10 mg 1X ONCE IVP 07/16/19 18:45 07/16/19 18:48 DC 07/16/19 18:55 Fentanyl Citrate (Fentanyl 2ml Vial) 50 mcg 1X ONCE IVP 07/16/19 19:15 07/16/19 19:16 DC 07/16/19 21:04 Fentanyl Citrate (Fentanyl 2ml Vial) 50 mcg PRN Q2HR PRN IVP PAIN 07/16/19 22:00 07/17/19 06:13 ALLERGIES ALLERGIES: Coded Allergies: Penicillins (Verified Allergy, Intermediate, RASH, SHORTNESS OF BREATH, 07/27/18) acetaminophen (Verified Allergy, Intermediate, 12/10/15) VITALS/I&O VITALS/I&O: Vital Signs Date Time Temp Pulse Resp B/P (MAP) Pulse Ox O2 Delivery O2 Flow Rate FiO2 07/17/19 07:55 Room Air 07/17/19 07:00 98.1 84 18 121/68 (85) 98 98.1 I & O 07/16/19 07/16/19 07/17/19 14:59 22:59 06:59 Intake Total 1000 ml 880 ml Balance 1000 ml 880 ml LABS Lab: Laboratory Tests Test 07/16/19 15:10 07/16/19 18:36 07/16/19 23:00 07/17/19 04:30 White Blood Count 4.5 x10^3/uL (4.0-11.0) Red Blood Count 5.17 x10^6/uL (4.30-5.70) Hemoglobin 14.4 g/dL (13.0-17.5) Hematocrit 43.5 % (39.0-53.0) Mean Corpuscular Volume 84 fL (79-100) Mean Corpuscular Hemoglobin 28 pg (25-35) Mean Corpuscular Hemoglobin Concent 33 g/dL (31-37) Red Cell Distribution Width 14.7 % (11.5-14.5) H Platelet Count 200 x10^3/uL (140-400) Neutrophils (%) (Auto) 63 % (31-73) Lymphocytes (%) (Auto) 29 % (24-48) Monocytes (%) (Auto) 6 % (0-9) Eosinophils (%) (Auto) 2 % (0-3) Basophils (%) (Auto) 0 % (0-3) Neutrophils # (Auto) 2.8 x10^3/uL (1.8-7.7) Lymphocytes # (Auto) 1.3 x10^3/uL (1.0-4.8) Monocytes # (Auto) 0.3 x10^3/uL (0.0-1.1) Eosinophils # (Auto) 0.1 x10^3/uL (0.0-0.7) Basophils # (Auto) 0.0 x10^3/uL (0.0-0.2) Prothrombin Time 11.0 SEC (11.7-14.0) L Prothrombin Time INR 0.8 (0.8-1.1) Sodium Level 146 mmol/L (136-145) H Potassium Level 4.1 mmol/L (3.5-5.1) Chloride Level 106 mmol/L (98-107) Carbon Dioxide Level 35 mmol/L (21-32) H Anion Gap 5 (6-14) L Blood Urea Nitrogen 9 mg/dL (8-26) Creatinine 1.0 mg/dL (0.7-1.3) Estimated GFR (Cockcroft-Gault) 91.9 BUN/Creatinine Ratio 9 (6-20) Glucose Level 94 mg/dL (70-99) Calcium Level 8.0 mg/dL (8.5-10.1) L Total Bilirubin 0.5 mg/dL (0.2-1.0) Aspartate Amino Transferase (AST) 21 U/L (15-37) Alanine Aminotransferase (ALT) 27 U/L (16-63) Alkaline Phosphatase 106 U/L (46-116) Troponin I Quantitative < 0.017 ng/mL (0.000-0.055) < 0.017 ng/mL (0.000-0.055) < 0.017 ng/mL (0.000-0.055) Total Protein 5.7 g/dL (6.4-8.2) L Albumin 3.0 g/dL (3.4-5.0) L Albumin/Globulin Ratio 1.1 (1.0-1.7) Lipase 115 U/L (73-393) Urine Collection Type Void Urine Color Yellow Urine Clarity Clear Urine pH 7.5 (<5.0-8.0) Urine Specific [place] 1.015 (1.000-1.030) Urine Protein Negative mg/dL (NEG-TRACE) Urine Glucose (UA) Negative mg/dL (NEG) Urine Ketones (Stick) Negative mg/dL (NEG) Urine Blood Negative (NEG) Urine Nitrite Negative (NEG) Urine Bilirubin Negative (NEG) Urine Urobilinogen Dipstick 1.0 mg/dL (0.2 mg/dL) Urine Leukocyte Esterase Negative (NEG) Urine RBC 0 /HPF (0-2) Urine WBC 0 /HPF (0-4) Urine Squamous Epithelial Cells Occ /LPF Urine Bacteria 0 /HPF (0-FEW) Urine Trichomonas Present Urine Opiates Screen Neg (NEG) Urine Methadone Screen Neg (NEG) Urine Barbiturates Neg (NEG) Urine Phencyclidine Screen Neg (NEG) Urine Amphetamine/Methamphetamine Neg (NEG) Urine Benzodiazepines Screen Neg (NEG) Urine Cocaine Screen Neg (NEG) Urine Cannabinoids Screen Neg (NEG) Urine Ethyl Alcohol Neg (NEG) Laboratory Tests 07/16/19 15:10 Laboratory Tests 07/16/19 15:10 ECHOCARDIOGRAM ECHOCARDIOGRAM <Conclusion> The left ventricular systolic function is normal. The Ejection Fraction is 50-55%. There is normal LV segmental wall motion. Transmitral Doppler flow pattern is Grade I-abnormal relaxation pattern. Trace mitral regurgitation. Trace tricuspid regurgitation. There is no evidence of significant pericardial effusion. DATE: 01/29/18 1352 ASSESSMENT/PLAN ASSESSMENT/PLAN Chest pain: possibly GI, trops nml, EKG SR without acute changes Abdominal pain HTN: labile episodes HLP Tobaccoism Prolonged QTc: 520 Hx of agitation and substance abuse with cocaine and opioids Recommendations 1. Will note accurate BP regimen and compliance and will restart 2. TSH, lipids and repeat EKG 3. Smoking cessation MAEVE MAN ANIMAL CONTROL SUPERVISOR July 17, 2019 08:27
--- NOTE | 2019-07-17 08:27 | PDOC ---
[employer] PROGRESS NOTE Chief Complaint Chief Complaint Chest pain Abdominal pain Chronic pain, peptic ulcer disease, history of (antifreeze poisoning), pneumoperitoneum hypertension, myocardial infarction. History of Present Illness History of Present Illness 07/17/2019 Patient seen and examined He was resting comfortably but awoke easily wants to go back to sleep Chart reviewed Discussed with RN Vitals/I&O Vitals/I&O: Vital Signs Date Time Temp Pulse Resp B/P (MAP) Pulse Ox O2 Delivery O2 Flow Rate FiO2 07/17/19 07:55 Room Air 07/17/19 07:00 98.1 84 18 121/68 (85) 98 98.1 I & O 07/16/19 07/16/19 07/17/19 14:59 22:59 06:59 Intake Total 1000 ml 880 ml Balance 1000 ml 880 ml Physical Exam General: Alert, Oriented X3 Lungs: Clear Abdomen: Normal bowel sounds Extremities: No clubbing, No cyanosis Skin: No rashes, No breakdown Labs Labs: Laboratory Tests Test 07/16/19 15:10 07/16/19 18:36 07/16/19 23:00 07/17/19 04:30 White Blood Count 4.5 x10^3/uL (4.0-11.0) Red Blood Count 5.17 x10^6/uL (4.30-5.70) Hemoglobin 14.4 g/dL (13.0-17.5) Hematocrit 43.5 % (39.0-53.0) Mean Corpuscular Volume 84 fL (79-100) Mean Corpuscular Hemoglobin 28 pg (25-35) Mean Corpuscular Hemoglobin Concent 33 g/dL (31-37) Red Cell Distribution Width 14.7 % (11.5-14.5) Platelet Count 200 x10^3/uL (140-400) Neutrophils (%) (Auto) 63 % (31-73) Lymphocytes (%) (Auto) 29 % (24-48) Monocytes (%) (Auto) 6 % (0-9) Eosinophils (%) (Auto) 2 % (0-3) Basophils (%) (Auto) 0 % (0-3) Neutrophils # (Auto) 2.8 x10^3/uL (1.8-7.7) Lymphocytes # (Auto) 1.3 x10^3/uL (1.0-4.8) Monocytes # (Auto) 0.3 x10^3/uL (0.0-1.1) Eosinophils # (Auto) 0.1 x10^3/uL (0.0-0.7) Basophils # (Auto) 0.0 x10^3/uL (0.0-0.2) Prothrombin Time 11.0 SEC (11.7-14.0) Prothromb Time International Ratio 0.8 (0.8-1.1) Sodium Level 146 mmol/L (136-145) Potassium Level 4.1 mmol/L (3.5-5.1) Chloride Level 106 mmol/L (98-107) Carbon Dioxide Level 35 mmol/L (21-32) Anion Gap 5 (6-14) Blood Urea Nitrogen 9 mg/dL (8-26) Creatinine 1.0 mg/dL (0.7-1.3) Estimated GFR (Cockcroft-Gault) 91.9 BUN/Creatinine Ratio 9 (6-20) Glucose Level 94 mg/dL (70-99) Calcium Level 8.0 mg/dL (8.5-10.1) Total Bilirubin 0.5 mg/dL (0.2-1.0) Aspartate Amino Transf (AST/SGOT) 21 U/L (15-37) Alanine Aminotransferase (ALT/SGPT) 27 U/L (16-63) Alkaline Phosphatase 106 U/L (46-116) Troponin I Quantitative < 0.017 ng/mL (0.000-0.055) < 0.017 ng/mL (0.000-0.055) < 0.017 ng/mL (0.000-0.055) Total Protein 5.7 g/dL (6.4-8.2) Albumin 3.0 g/dL (3.4-5.0) Albumin/Globulin Ratio 1.1 (1.0-1.7) Lipase 115 U/L (73-393) Urine Collection Type Void Urine Color Yellow Urine Clarity Clear Urine pH 7.5 (<5.0-8.0) Urine Specific [place] 1.015 (1.000-1.030) Urine Protein Negative mg/dL (NEG-TRACE) Urine Glucose (UA) Negative mg/dL (NEG) Urine Ketones (Stick) Negative mg/dL (NEG) Urine Blood Negative (NEG) Urine Nitrite Negative (NEG) Urine Bilirubin Negative (NEG) Urine Urobilinogen Dipstick 1.0 mg/dL (0.2 mg/dL) Urine Leukocyte Esterase Negative (NEG) Urine RBC 0 /HPF (0-2) Urine WBC 0 /HPF (0-4) Urine Squamous Epithelial Cells Occ /LPF Urine Bacteria 0 /HPF (0-FEW) Urine Trichomonas Present Urine Opiates Screen Neg (NEG) Urine Methadone Screen Neg (NEG) Urine Barbiturates Neg (NEG) Urine Phencyclidine Screen Neg (NEG) Urine Amphetamine/Methamphetamine Neg (NEG) Urine Benzodiazepines Screen Neg (NEG) Urine Cocaine Screen Neg (NEG) Urine Cannabinoids Screen Neg (NEG) Urine Ethyl Alcohol Neg (NEG) Assessment and Plan Assessmemt and Plan Problems Medical Problems: (1) Chest pain Status: Acute Chest pain Abdominal pain Chronic pain, peptic ulcer disease, history of (antifreeze poisoning), pneumoperitoneum hypertension, myocardial infarction. Plan Serial enzymes Serial EKGs Cardiac monitoring Await further subspecialist input DVT prophylaxis Full code Home meds Comment Review of Relevant I have reviewed the following items steph (where applicable) has been applied. Medications: Current Medications Medications (Trade) Dose Ordered Sig/Marylin Route PRN Reason Start Time Stop Time Status Last Admin Dose Admin Famotidine (Pepcid Vial) 20 mg 1X ONCE IVP 07/16/19 15:15 07/16/19 15:16 DC 07/16/19 15:34 Iohexol (Omnipaque 300 Mg/ml) 75 ml 1X ONCE IV 07/16/19 16:15 07/16/19 16:16 DC 07/16/19 16:36 Sodium Chloride 1,000 ml @ 1,000 mls/hr 1X ONCE IV 07/16/19 17:00 07/16/19 17:59 DC 07/16/19 17:12 Hydralazine HCl (Apresoline Inj) 10 mg 1X ONCE IVP 07/16/19 18:45 07/16/19 18:48 DC 07/16/19 18:55 Fentanyl Citrate (Fentanyl 2ml Vial) 50 mcg 1X ONCE IVP 07/16/19 19:15 07/16/19 19:16 DC 07/16/19 21:04 Fentanyl Citrate (Fentanyl 2ml Vial) 50 mcg PRN Q2HR PRN IVP PAIN 07/16/19 22:00 07/17/19 06:13 CODIE YANES III DO July 17, 2019 08:27
[2019-07-17 08:49] LABS: CHOLESTEROL/HDL RATIO 2.8
--- NOTE | 2019-07-17 10:37 | PDOC2 ---
ELVINMAEVE Wells CIGARETTE PACKING MACHINE OPERATOR 07/17/19 1037: CARDIAC CONSULT DATE OF CONSULT Date of Consult DATE: 07/17/19 TIME: 10:36 REASON FOR CONSULT Reason for Consult: Chest pain REFERRING PHYSICIAN Referring Physician: Angeli SOURCE Source: Chart review, Patient HISTORY OF PRESENT ILLNESS HISTORY OF PRESENT ILLNESS This is a 59 yo AA male admitted for complains of chest and abdominal pain. Reports that this has been going in the last few days and this dull achy and sometimes sharp. This is also reproducible with palpation but the main concern he has is his abdominal pain mainly in the epigastric region and reproducible with palpation. No associated nausea or vomiting and he actually ate breakfast without any issues. No SOA. No recent falls or injury. He currently is homeless and quite irritated with asking him questions and has been asking for pain med. No diarrhea, fever or chills. When I asked him where he lives he just told me "here and there." So far no EVANS and no palpitations. jaw or arm discomfort. PAST MEDICAL HISTORY Past Medical History Cardiovascular: CAD (?), Hyperlipidemia Pulmonary: No pertinent hx CENTRAL NERVOUS SYSTEM: Other (No pertinent history) GI: ileus Heme/Onc: No pertinent hx Hepatobiliary: No pertinent hx Psych: No pertinent hx Musculoskeletal: Osteoarthritis Rheumatologic: No pertinent hx Infectious disease: No pertinent hx ENT: No pertinent hx Renal/: No pertinent hx Endocrine: No pertinent hx Dermatology: No pertinent hx PAST SURGICAL HISTORY Past Surgical History: Appendectomy FAMILY HISTORY Family History noncontributory to CV SOCIAL HISTORY Smoke: <1 pack per day ALCOHOL: none Drugs: Cocaine Lives: Alone CURRENT MEDICATIONS CURRENT MEDICATIONS Current Medications Medications (Trade) Dose Ordered Sig/Marylin Route PRN Reason Start Time Stop Time Status Last Admin Dose Admin Famotidine (Pepcid Vial) 20 mg 1X ONCE IVP 07/16/19 15:15 07/16/19 15:16 DC 07/16/19 15:34 Iohexol (Omnipaque 300 Mg/ml) 75 ml 1X ONCE IV 07/16/19 16:15 07/16/19 16:16 DC 07/16/19 16:36 Sodium Chloride 1,000 ml @ 1,000 mls/hr 1X ONCE IV 07/16/19 17:00 07/16/19 17:59 DC 07/16/19 17:12 Hydralazine HCl (Apresoline Inj) 10 mg 1X ONCE IVP 07/16/19 18:45 07/16/19 18:48 DC 07/16/19 18:55 Fentanyl Citrate (Fentanyl 2ml Vial) 50 mcg 1X ONCE IVP 07/16/19 19:15 07/16/19 19:16 DC 07/16/19 21:04 Fentanyl Citrate (Fentanyl 2ml Vial) 50 mcg PRN Q2HR PRN IVP PAIN 07/16/19 22:00 07/17/19 08:58 ALLERGIES ALLERGIES: Coded Allergies: Penicillins (Verified Allergy, Intermediate, RASH, SHORTNESS OF BREATH, 07/27/18) acetaminophen (Verified Allergy, Intermediate, 12/10/15) ROS Review of System 14 point ROS evaluated with pertinent positives noted per HPI PHYSICAL EXAM General: Alert, Oriented X3, Cooperative, No acute distress HEENT: Atraumatic, Mucous membr. moist/pink Lungs: Clear to auscultation, Normal air movement Heart: Regular rate (SR), Normal S1, Normal S2, Other (2/6 systolic murmur to LLS border) Abdomen: Soft, No tenderness Extremities: No cyanosis, No edema Skin: No breakdown, No significant lesion Neuro: Normal speech, Sensation intact Psych/Mental Status: Mental status NL, Other (irritable) MUSCULOSKELETAL: Osteoarthritic changes both hands VITALS/I&O VITALS/I&O: Vital Signs Date Time Temp Pulse Resp B/P (MAP) Pulse Ox O2 Delivery O2 Flow Rate FiO2 07/17/19 07:55 Room Air 07/17/19 07:00 98.1 84 18 121/68 (85) 98 98.1 I & O 07/16/19 07/16/19 07/17/19 14:59 22:59 06:59 Intake Total 1000 ml 880 ml Balance 1000 ml 880 ml LABS Lab: Laboratory Tests Test 07/16/19 15:10 07/16/19 18:36 07/16/19 23:00 07/17/19 04:30 White Blood Count 4.5 x10^3/uL (4.0-11.0) Red Blood Count 5.17 x10^6/uL (4.30-5.70) Hemoglobin 14.4 g/dL (13.0-17.5) Hematocrit 43.5 % (39.0-53.0) Mean Corpuscular Volume 84 fL (79-100) Mean Corpuscular Hemoglobin 28 pg (25-35) Mean Corpuscular Hemoglobin Concent 33 g/dL (31-37) Red Cell Distribution Width 14.7 % (11.5-14.5) H Platelet Count 200 x10^3/uL (140-400) Neutrophils (%) (Auto) 63 % (31-73) Lymphocytes (%) (Auto) 29 % (24-48) Monocytes (%) (Auto) 6 % (0-9) Eosinophils (%) (Auto) 2 % (0-3) Basophils (%) (Auto) 0 % (0-3) Neutrophils # (Auto) 2.8 x10^3/uL (1.8-7.7) Lymphocytes # (Auto) 1.3 x10^3/uL (1.0-4.8) Monocytes # (Auto) 0.3 x10^3/uL (0.0-1.1) Eosinophils # (Auto) 0.1 x10^3/uL (0.0-0.7) Basophils # (Auto) 0.0 x10^3/uL (0.0-0.2) Prothrombin Time 11.0 SEC (11.7-14.0) L Prothrombin Time INR 0.8 (0.8-1.1) Sodium Level 146 mmol/L (136-145) H Potassium Level 4.1 mmol/L (3.5-5.1) Chloride Level 106 mmol/L (98-107) Carbon Dioxide Level 35 mmol/L (21-32) H Anion Gap 5 (6-14) L Blood Urea Nitrogen 9 mg/dL (8-26) Creatinine 1.0 mg/dL (0.7-1.3) Estimated GFR (Cockcroft-Gault) 91.9 BUN/Creatinine Ratio 9 (6-20) Glucose Level 94 mg/dL (70-99) Calcium Level 8.0 mg/dL (8.5-10.1) L Total Bilirubin 0.5 mg/dL (0.2-1.0) Aspartate Amino Transferase (AST) 21 U/L (15-37) Alanine Aminotransferase (ALT) 27 U/L (16-63) Alkaline Phosphatase 106 U/L (46-116) Troponin I Quantitative < 0.017 ng/mL (0.000-0.055) < 0.017 ng/mL (0.000-0.055) < 0.017 ng/mL (0.000-0.055) Total Protein 5.7 g/dL (6.4-8.2) L Albumin 3.0 g/dL (3.4-5.0) L Albumin/Globulin Ratio 1.1 (1.0-1.7) Lipase 115 U/L (73-393) Urine Collection Type Void Urine Color Yellow Urine Clarity Clear Urine pH 7.5 (<5.0-8.0) Urine Specific [place] 1.015 (1.000-1.030) Urine Protein Negative mg/dL (NEG-TRACE) Urine Glucose (UA) Negative mg/dL (NEG) Urine Ketones (Stick) Negative mg/dL (NEG) Urine Blood Negative (NEG) Urine Nitrite Negative (NEG) Urine Bilirubin Negative (NEG) Urine Urobilinogen Dipstick 1.0 mg/dL (0.2 mg/dL) Urine Leukocyte Esterase Negative (NEG) Urine RBC 0 /HPF (0-2) Urine WBC 0 /HPF (0-4) Urine Squamous Epithelial Cells Occ /LPF Urine Bacteria 0 /HPF (0-FEW) Urine Trichomonas Present Urine Opiates Screen Neg (NEG) Urine Methadone Screen Neg (NEG) Urine Barbiturates Neg (NEG) Urine Phencyclidine Screen Neg (NEG) Urine Amphetamine/Methamphetamine Neg (NEG) Urine Benzodiazepines Screen Neg (NEG) Urine Cocaine Screen Neg (NEG) Urine Cannabinoids Screen Neg (NEG) Urine Ethyl Alcohol Neg (NEG) Triglycerides Level 57 mg/dL (0-150) Cholesterol Level 154 mg/dL (0-200) LDL Cholesterol, Calculated 87 mg/dL (0-100) VLDL Cholesterol, Calculated 11 mg/dL (0-40) Non-HDL Cholesterol Calculated 98 mg/dL (0-129) HDL Cholesterol 56 mg/dL (40-60) Cholesterol/HDL Ratio 2.8 Thyroid Stimulating Hormone (TSH) 0.234 uIU/mL (0.358-3.74) L Laboratory Tests 07/16/19 15:10 Laboratory Tests 07/16/19 15:10 ECHOCARDIOGRAM ECHOCARDIOGRAM <Conclusion> The left ventricular systolic function is normal. The Ejection Fraction is 50-55%. There is normal LV segmental wall motion. Transmitral Doppler flow pattern is Grade I-abnormal relaxation pattern. Trace mitral regurgitation. Trace tricuspid regurgitation. There is no evidence of significant pericardial effusion. DATE: 01/29/18 1352 ASSESSMENT/PLAN ASSESSMENT/PLAN 1. Atypical Chest pain: more of abd pain. low suspicion for ACS 2. HTN: controlled 3. Drug seeking behavior 4. HLP 5. Homelessness 6. Prolonged QTc: 520, SR no arrhythmias 7. Hx of substance abuse: cocaine negative currently 8. Tobaccoism with likely COPD Recommendations 1. Consider GI consult. 2. SMoking cessation 3. TSH and lipids. Repeat EKG. Caution with QT prolonging agents. 4. SS consult. 5. No BP med on med list. If so then consider HCTZ. May DC per cardiac standpoint. ODESSA BLANDON MD 07/17/191941: CARDIAC CONSULT ASSESSMENT/PLAN ASSESSMENT/PLAN Patient seen and examined. Agree with SAP SENIOR DEVELOPER's assessment and plan. CP with atypical features and most probably GI etiology NH ruled out Last 2D echo showed normal LVF We will consider ischemic eval as outpatient Thank you for your consultation MAEVE MAN APRN July 17, 2019 10:37 ODESSA BLANDON MD July 17, 2019 19:42
[2019-07-17 10:57] VITALS: BP 114/60
--- NOTE | 2019-07-17 13:36 | EKG ---
[facility] [address] [place] [address] Test Date: 2019-07-17 Test Time: 13:23:16 Pat Name: MARIA LARKIN Department: Room: 250 1 Gender: M Sheetmetal Worker: : 1960 Requested By: MAEVE MAN Order Number: [id number] Reading MD: Enrique Franco MD Measurements Intervals [place] Rate: 93 P: 50 KS: 150 QRS: 42 QRSD: 82 T: 65 QT: 332 QTc: 415 Interpretive Statements SINUS RHYTHM Electronically Signed On 07-20-2019 12:17:40 CDT by Enrique Franco MD
[2019-07-17] MEDS ORDERED: no (14:26)
--- NOTE | 2019-07-17 14:39 | NUR ---
Pt becoming increasingly agitated with this RN and social vinnie Alicia in regards to discharge. This RN and social vinnie Alicia both asked pt the address he will be going to upon discharge. Pt stated he will go to the address [address], [place] [address]. Pt states it is his grandmother's house. Pt then became further agitated asking where the cab was and that he was ready to go. This RN reinforced to pt that he has to wait to for the cab to arrive before he is able to leave the facility. Pt then stated that "I am not waiting, you can not hold me here against my will." This RN called Jessica nursing cutting room supervisor Addendum: 07/17/19 at 1528 by JEREMIAH WHALEN RN continued from note above: and told her that pt was wanting to leave without the cab being present. Gladys nurse venue manager arrived and this RN told her that pt was wanting to leave without the cab. Pt then started shouting at this RN "you are lying, I never said that, do you have any brains?" Pt continued yelling remarks at this RN, such as "you are going to hell, you are racist, it's because I'm black," while Gladys, nurse venue manager, Nicci, nurse venue manager, Amari RN, Maral social media manager, and SALINA Bhagat all witnessed situation take place. Security was called. When security arrived, pt stated "why are you here? I can raise hell." Security stated that behavior would not be tolerated in the hospital and asked the pt to remove the cigarette that was in his mouth. Pt stated "it's my cigarette, you can not take it." Security then escorted pt off the unit. Pt's IV previously removed with no complication, pressure applied. Pt escorted off unit before discharge papers given.
--- NOTE | 2019-07-17 14:40 | NUR ---
SS following for discharge planning. SS reviewed pt chart and discussed with RN. Pt is homeless and currently on room air. Cardiology cleared. Discharge order on the chart for home with self care. Pt requesting cab pass to [address] [place] [address]. Pt's RN requesting cab pass.
--- NOTE | 2019-07-18 13:41 | DS ---
DATE OF DISCHARGE: 07/17/2019 ADMISSION DIAGNOSIS: Chest pain. DISCHARGE DIAGNOSIS: Resolving chest pain. HOSPITAL COURSE: The patient is a pleasant 59-year-old male, well known to our service. Once again, he presented with chest pain. We did serial enzymes and serial EKGs. We consulted Cardiology. Yesterday, he was doing great. We discharged to home. DISPOSITION: Home. ACTIVITY: As tolerated. DIET: Low sodium. MEDICATIONS: Please see MRAD. TOTAL TIME: 32 minutes. CODIE YANES DO DR: GENNARO/leelee JOB#: [id number] / [id number]
== END 2019-07-17 15:10 | disposition home or self-care (01) | DRG 313 ==
LOC: ER 14:57 → 2 SOUTH 19:03
PROVIDERS: ADMIT Internal Medicine; ATTEND Internal Medicine
DX: R07.89 Other chest pain (principal); F17.210 Nicotine dependence, cigarettes, uncomplicated; E78.5 Hyperlipidemia, unspecified; G89.29 Other chronic pain; J44.9 Chronic obstructive pulmonary disease, unspecified; I25.10 Atherosclerotic heart disease of native coronary artery without angina pectoris; I10 Essential (primary) hypertension; M19.90 Unspecified osteoarthritis, unspecified site; Z82.49 Family history of ischemic heart disease and other diseases of the circulatory system; Z87.11 Personal history of peptic ulcer disease; Z59.0 Homelessness; I25.2 Old myocardial infarction; Z76.5 Malingerer [conscious simulation]
CPT/HCPCS: 36415; 71045; 72220; 74177; 80053; 80061; 80307; 81001; 83690; 84443; 84484; 85025; 85610; 93005; 96361; 96374; 96375; J0360; J3010; J3490; J7030; Q9967; 99285-25; G0378

== ENCOUNTER 2019-09-10 13:07 | Emergency (ER) | payer SELFPAY ==
[~2019-09-10] VITALS: Ht 190.5 cm; Wt 81.8 kg
[2019-09-10 13:07] VITALS: BP 164/98
[~2019-09-10 13:07] MED LIST changes: -ASPI-612 PO; +ASPI-886 PO; +no
--- NOTE | 2019-09-10 13:23 | PHYS DOC ---
Past Medical History Past Medical History: Cancer, Hypertension, MT Additional Past Medical Histor: "ULCERS" "ANTIFREEZE POISONING" Past Surgical History: Other Additional Past Surgical Histo: ABD "SURGERY 2 ANTIFREEZE POISONING" PNEUMOPERITONEUM Smoking Status: Current Every Day Smoker Alcohol Use: None Drug Use: None General Adult EDM: Chief Complaint: CHEST PAIN HPI: HPI: 59-year-old male presents emergency department today after having chest pain. He comes in by EMS. Patient was combative and not allowing us to provide medical care for him. He would not elaborate on the reason he came and was upset. He wanted to leave. He does not want medical screening exam and he does not want to be treated. Asked him to sign out AMA which he refuses. He then left the emergency department on his own will ambulation. He understands the risks of disability and pain. Review of Systems: Review of Systems: Patient does not answer review of systems questions Heart Score: Risk Factors: Risk Factors: DM, Current or recent (<one month) smoker, HTN, HLP, family history of CAD, obesity. Risk Scores: Score 0 - 3: 2.5% MACE over next 6 weeks - Discharge Home Score 4 - 6: 20.3% MACE over next 6 weeks - Admit for Clinical Observation Score 7 - 10: 72.7% MACE over next 6 weeks - Early Invasive Strategies Allergies: Allergies: Allergies Coded Allergies Type Severity Reaction Last Updated Verified Penicillins Allergy Intermediate RASH, SHORTNESS OF BREATH 07/27/18 Yes acetaminophen Allergy Intermediate 12/10/15 Yes Physical Exam: PE: Constitutional: Well developed, well nourished, no acute distress, non-toxic appearance. [] HENT: Normocephalic, atraumatic, bilateral external ears normal, oropharynx moist, no oral exudates, nose normal. [] Eyes: PERRLA, EOMI, conjunctiva normal, no discharge. [] Neck: Normal range of motion, no tenderness, supple, no stridor. [] Cardiovascular:Heart rate regular rhythm, no murmur [] Lungs & Thorax: Breathing comfortably. Skin: Warm, dry, no erythema, no rash. [] Extremities: No tenderness, no cyanosis, no clubbing, ROM intact, no edema. [] Neurologic: Alert and oriented X 3, normal motor function, normal sensory function, no focal deficits noted. [] Patient ambulates on his own without any difficulty. He has ability to make medical decisions. He demonstrates insight into his situation. Psychologic: Affect normal, judgement normal, mood normal. [] EKG: EKG: [] Radiology/Procedures: Radiology/Procedures: [] Course & Med Decision Making: Course & Med Decision Making Pertinent Labs and Imaging studies reviewed. (See chart for details) [] Dragon Disclaimer: Dragon Disclaimer: This electronic medical record was generated, in whole or in part, using a voice recognition dictation system. Departure Departure Impression: Primary Impression: Left against medical advice Disposition: 07 AGAINST MEDICAL ADVICE Condition: GUARDED Referrals: NO PCP (PCP) Justicifation of Admission Dx: Justifications for Admission: Justification of Admission Dx: N/A GINO PAZ MD Sep 10, 2019 13:22
--- NOTE | 2019-09-15 11:46 | EKG ---
[facility] [address] [place] [address] Test Date: 2019-09-10 Test Time: 13:09:52 Pat Name: MARIA LARKIN Department: Room: Gender: M Administrative Supervisor: : [id number] Requested By: GINO PAZ Order Number: [id number] Reading MD: Measurements Intervals [place] Rate: P: OK: QRS: QRSD: T: QT: QTc: Interpretive Statements
== END 2019-09-10 13:15 | disposition left against medical advice (07) ==
LOC: ER 13:07
DX: R07.89 Other chest pain (principal); I10 Essential (primary) hypertension; I25.2 Old myocardial infarction; F17.200 Nicotine dependence, unspecified, uncomplicated; Z88.0 Allergy status to penicillin; Z88.6 Allergy status to analgesic agent
CPT/HCPCS: 93005; 99283